=== PATIENT | female | born 1995 | race Caucasian/White ===

== ENCOUNTER 2017-10-18 15:55 | Emergency (ER) | payer OTHER, MEDICAID, SELFPAY ==
[2017-10-18 15:56] VITALS: BP 109/76; PULSE 116; RESP 16; TEMP 36.7; O2SAT 99; BMI 19.3
--- NOTE | 2017-10-18 16:07 | CT_ITS ---
CT Abdomen And Pelvis W/ Contrast INDICATION: RLQ PAIN, NAUSEA, HX-MOLAR WITH CHEMO COMPARISON: None TECHNIQUE: Axial CT imaging of the abdomen and pelvis with oral and intravenous contrast. Coronal and sagittal reformatted images. Radiation dose optimization technique applied. 100 mL of Isovue-300 were given intravenously. FINDINGS: The lung bases are clear. The heart size is normal. The liver, gallbladder, spleen, adrenal glands, and pancreas are unremarkable. The kidneys enhance contrast symmetrically bilaterally and are without evidence of hydronephrosis. Oral contrast material is seen in the stomach and nondistended small bowel loops. The appendix is unremarkable. Ovaries contain multiple follicles bilaterally.. The uterus is tilted towards the right. There is no evidence of free air or free fluid. The osseous structures are unremarkable. CT/Abdomen/Pelvis WITH Contrast IMPRESSION: No convincing CT evidence of acute intra-abdominal pelvic pathology. Normal appendix. at 1854 Reported and signed by: Mary Villareal MD Electronically Signed: Mary Villareal MD at 18:52 EDT Tel , Service support ,
--- NOTE | 2017-10-18 16:10 | ED.VISSUMM ---
- ER Visit Summary Date of Service: 10/18/17 Chief Complaint: Right lower quadrant abdominal pain History of Present Illness: The patient is a 22 F who presents with right lower quadrant abdominal pain since this morning. Pain is sharp, constant and woke her up from sleep. It hurts worse to move. Patient has associated nausea. No fever, diarrhea, urinary symptoms, vaginal bleeding or discharge. 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 Patient does have her uterus and ovaries still. No further medical history. Patient is a smoker. Last ate at [employer] prior to coming to the ED and says it made her nausea worse. Physical Examination: Vital signs: afebrile, hemodynamically stable, tachycardiac, no hypoxia on room air General: well nourished, well developed, in no distress appears uncomfortable, hand on right lower quadrant Skin: warm, dry, no rash, no pallor HEENT: normocephalic and atraumatic; PERRL, EOMI, moist mucous membranes Cardiovascular: Tachycardic rate and rhythm without murmurs, no peripheral edema, 2+ pulses all distal extremities Respiratory: No increased work of breathing, lungs are clear to auscultation bilaterally, no rales, rhonchi or wheezing Abdominal: Abdomen is soft, tender in the right lower quadrant with rebound tenderness, positive Rosvings sign, normoactive bowel sounds, no guarding, no masses MSK: Moves all extremities, no deformities, normal strength Neuro: Awake and alert, oriented ?4. No facial droop, sensation and motor function intact and symmetric Test Results: Abnormal Lab Results 10/18/17 10/18/17 10/18/17 16:20 16:20 16:20 WBC 9.3 RBC 4.79 Hgb 14.0 Hct 40.1 MCV 83.7 MCH 29.2 MCHC 34.9 RDW 12.1 RDW Differential 37.0 Plt Count 217 MPV 9.9 Immature Gran % (Auto) 0.000 Neut % (Auto) 68.9 Lymph % (Auto) 23.3 [place] % (Auto) 5.9 Eos % (Auto) 1.5 Baso % (Auto) 0.4 Absolute Neuts (auto) 6.4 Absolute Lymphs (auto) 2.16 Total Counted Not Reportable Sodium 140 Potassium 3.5 Chloride 106 Carbon Dioxide 28.0 Anion Gap 6 BUN 12 Creatinine 0.91 Estim Creat Clear Calc 87.28 Est GFR (MDRD) Af Amer 100 Est GFR (MDRD) Non-Af 83 BUN/Creatinine Ratio 13.1 Glucose 91 Lactic Acid 1.2 Calcium 8.5 Total Bilirubin 0.50 AST 18 ALT 19 Alkaline Phosphatase 92 Total Protein 8.0 Albumin 4.2 Globulin 3.8 Albumin/Globulin Ratio 1.1 Lipase 123 Urine Color Urine Clarity Urine pH Ur Specific [place] Urine Protein Urine Glucose (UA) Urine Ketones Urine Occult Blood Urine Nitrite Urine Bilirubin Urine Urobilinogen Ur Leukocyte Esterase Urine RBC Urine WBC Ur Squamous Epith Cells Urine Bacteria Urine Mucus Urine Test 10/18/17 10/18/17 16:20 16:20 WBC RBC Hgb Hct MCV MCH MCHC RDW RDW Differential Plt Count MPV Immature Gran % (Auto) Neut % (Auto) Lymph % (Auto) [place] % (Auto) Eos % (Auto) Baso % (Auto) Absolute Neuts (auto) Absolute Lymphs (auto) Total Counted Sodium Potassium Chloride Carbon Dioxide Anion Gap BUN Creatinine Estim Creat Clear Calc Est GFR (MDRD) Af Amer Est GFR (MDRD) Non-Af BUN/Creatinine Ratio Glucose Lactic Acid Calcium Total Bilirubin AST ALT Alkaline Phosphatase Total Protein Albumin Globulin Albumin/Globulin Ratio Lipase Urine Color Yellow Urine Clarity Clear Urine pH 8.0 Ur Specific [place] 1.010 Urine Protein 15 H Urine Glucose (UA) Normal Urine Ketones Negative Urine Occult Blood Negative Urine Nitrite Negative Urine Bilirubin Negative Urine Urobilinogen Normal Ur Leukocyte Esterase Negative Urine RBC 0 SEEN Urine WBC 0 SEEN Ur Squamous Epith Cells 5-10 SEEN Urine Bacteria 0 SEEN Urine Mucus 0 SEEN Urine Test Negative Clinical Impression(s) from Imaging Studies Abdomen/Pelvis CT 10/18/17 16:07 IMPRESSION: No convincing CT evidence of acute intra-abdominal pelvic pathology. Normal appendix. at 1854 Reported and signed by: Mary Villareal MD Electronically Signed: Mary Villareal MD at 18:52 EDT Tel , Service support , Emergency Department Course and Treatment: Patient was given morphine and Zofran for symptomatic relief as well as normal saline for hydration. Labs showed no leukocytosis, no anemia, no electrolyte derangements, no hepatic derangements, normal urine without infection, negative and a normal lactate of 1.2. Given patient's right lower quadrant abdominal pain a CT abdomen and pelvis was performed with p.o. and IV contrast. It showed a normal appendix and no other acute pathology. There were multiple follicles on bilateral ovaries but no signs of inflammation or large cysts. Discussed with patient that emergent causes of her right lower quadrant pain had been ruled out with the exception of ovarian torsion. Although there was no indication of it on her CT scan, ultrasound would be the imaging of choice. Patient refused the ultrasound and stated she would see her doctor this week. I told her that it would be a time sensitive issue if she was having pain because of torsion, and she still refused the ultrasound. I advised her to use NSAIDs as needed for pain and to f/u with her doctor zac. She was offered and declined a prescription for naproxen and also for an antiemetic. Patient was discharged home with strict return precautions. Patient was moving comfortably and had improvement in her pain at time of discharge. Treatment Plan: [] Disposition: [] Impression: Right lower quadrant abdominal pain This note was generated with [employer] dictation software. It may contain incorrect words, spelling, and punctuation that were not noted in review of the chart prior to signing ED Disposition - Plan for ED Patient: Disposition: Home or Assisted Living Chief Complaint: Abd Pain Instructions: ED Abdominal Pain Unkn Cause Referrals: Sami Oswald MD [Primary Care Provider] - As Needed Rhonda Hwoell MD [STAFF PHYSICIAN] - As soon as possible Additional Instructions: Please follow-up with your field care manager as soon as possible, Friday if at all possible, for follow-up to your lower abdominal pain. Your CT scan was normal. Your labs were normal. You are offered and declined an ultrasound to evaluate your ovaries and to make sure there was no evidence of ovarian torsion. Please return to the emergency department immediately if you have worsening of your condition or any new concerning symptoms. Use ibuprofen as needed for pain.
--- NOTE | 2017-10-18 16:13 | ED.DCSUM_ITS ---
- ER Visit Summary Date of Service: 10/18/17 Chief Complaint: Right lower quadrant abdominal pain History of Present Illness: The patient is a 22 F who presents with right lower quadrant abdominal pain since this morning. Pain is sharp, constant and woke her up from sleep. It hurts worse to move. Patient has associated nausea. No fever, diarrhea, urinary symptoms, vaginal bleeding or discharge. 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 Patient does have her uterus and ovaries still. No further medical history. Patient is a smoker. Last ate at [employer] prior to coming to the ED and says it made her nausea worse. Physical Examination: Vital signs: afebrile, hemodynamically stable, tachycardiac, no hypoxia on room air General: well nourished, well developed, in no distress appears uncomfortable, hand on right lower quadrant Skin: warm, dry, no rash, no pallor HEENT: normocephalic and atraumatic; PERRL, EOMI, moist mucous membranes Cardiovascular: Tachycardic rate and rhythm without murmurs, no peripheral edema , 2+ pulses all distal extremities Respiratory: No increased work of breathing, lungs are clear to auscultation bilaterally, no rales, rhonchi or wheezing Abdominal: Abdomen is soft, tender in the right lower quadrant with rebound tenderness, positive Rosvings sign, normoactive bowel sounds, no guarding, no masses MSK: Moves all extremities, no deformities, normal strength Neuro: Awake and alert, oriented ?4. No facial droop, sensation and motor function intact and symmetric Test Results: Abnormal Lab Results 10/18/17 10/18/17 10/18/17 16:20 16:20 16:20 WBC 9.3 RBC 4.79 Hgb 14.0 Hct 40.1 MCV 83.7 MCH 29.2 MCHC 34.9 RDW 12.1 RDW Differential 37.0 Plt Count 217 MPV 9.9 Immature Gran % (Auto) 0.000 Neut % (Auto) 68.9 Lymph % (Auto) 23.3 [place] % (Auto) 5.9 Eos % (Auto) 1.5 Baso % (Auto) 0.4 Absolute Neuts (auto) 6.4 Absolute Lymphs (auto) 2.16 Total Counted Not Reportable Sodium 140 Potassium 3.5 Chloride 106 Carbon Dioxide 28.0 Anion Gap 6 BUN 12 Creatinine 0.91 Estim Creat Clear Calc 87.28 Est GFR (MDRD) Af Amer 100 Est GFR (MDRD) Non-Af 83 BUN/Creatinine Ratio 13.1 Glucose 91 Lactic Acid 1.2 Calcium 8.5 Total Bilirubin 0.50 AST 18 ALT 19 Alkaline Phosphatase 92 Total Protein 8.0 Albumin 4.2 Globulin 3.8 Albumin/Globulin Ratio 1.1 Lipase 123 Urine Color Urine Clarity Urine pH Ur Specific [place] Urine Protein Urine Glucose (UA) Urine Ketones Urine Occult Blood Urine Nitrite Urine Bilirubin Urine Urobilinogen Ur Leukocyte Esterase Urine RBC Urine WBC Ur Squamous Epith Cells Urine Bacteria Urine Mucus Urine Test 10/18/17 10/18/17 16:20 16:20 WBC RBC Hgb Hct MCV MCH MCHC RDW RDW Differential Plt Count MPV Immature Gran % (Auto) Neut % (Auto) Lymph % (Auto) [place] % (Auto) Eos % (Auto) Baso % (Auto) Absolute Neuts (auto) Absolute Lymphs (auto) Total Counted Sodium Potassium Chloride Carbon Dioxide Anion Gap BUN Creatinine Estim Creat Clear Calc Est GFR (MDRD) Af Amer Est GFR (MDRD) Non-Af BUN/Creatinine Ratio Glucose Lactic Acid Calcium Total Bilirubin AST ALT Alkaline Phosphatase Total Protein Albumin Globulin Albumin/Globulin Ratio Lipase Urine Color Yellow Urine Clarity Clear Urine pH 8.0 Ur Specific [place] 1.010 Urine Protein 15 H Urine Glucose (UA) Normal Urine Ketones Negative Urine Occult Blood Negative Urine Nitrite Negative Urine Bilirubin Negative Urine Urobilinogen Normal Ur Leukocyte Esterase Negative Urine RBC 0 SEEN Urine WBC 0 SEEN Ur Squamous Epith Cells 5-10 SEEN Urine Bacteria 0 SEEN Urine Mucus 0 SEEN Urine Test Negative Clinical Impression(s) from Imaging Studies Abdomen/Pelvis CT 10/18/17 16:07 IMPRESSION: No convincing CT evidence of acute intra-abdominal pelvic pathology. Normal appendix. at 1854 Reported and signed by: Mary Villareal MD Electronically Signed: Mary Villareal MD at 18:52 EDT Tel , Service support , Emergency Department Course and Treatment: Patient was given morphine and Zofran for symptomatic relief as well as normal saline for hydration. Labs showed no leukocytosis, no anemia, no electrolyte derangements, no hepatic derangements, normal urine without infection, negative and a normal lactate of 1.2. Given patient's right lower quadrant abdominal pain a CT abdomen and pelvis was performed with p.o. and IV contrast. It showed a normal appendix and no other acute pathology. There were multiple follicles on bilateral ovaries but no signs of inflammation or large cysts. Discussed with patient that emergent causes of her right lower quadrant pain had been ruled out with the exception of ovarian torsion. Although there was no indication of it on her CT scan, ultrasound would be the imaging of choice. Patient refused the ultrasound and stated she would see her doctor this week. I told her that it would be a time sensitive issue if she was having pain because of torsion, and she still refused the ultrasound. I advised her to use NSAIDs as needed for pain and to f/u with her doctor zac. She was offered and declined a prescription for naproxen and also for an antiemetic. Patient was discharged home with strict return precautions. Patient was moving comfortably and had improvement in her pain at time of discharge. Treatment Plan: [] Disposition: [] Impression: Right lower quadrant abdominal pain This note was generated with [employer] dictation software. It may contain incorrect words, spelling, and punctuation that were not noted in review of the chart prior to signing ED Disposition - Plan for ED Patient: Disposition: Home or Assisted Living Chief Complaint: Abd Pain Instructions: ED Abdominal Pain Unkn Cause Referrals: Sami Oswald MD [Primary Care Provider] - As Needed Rhonda Howell MD [STAFF PHYSICIAN] - As soon as possible Additional Instructions: Please follow-up with your biology research assistant as soon as possible, Friday if at all possible, for follow-up to your lower abdominal pain. Your CT scan was normal. Your labs were normal. You are offered and declined an ultrasound to evaluate your ovaries and to make sure there was no evidence of ovarian torsion. Please return to the emergency department immediately if you have worsening of your condition or any new concerning symptoms. Use ibuprofen as needed for pain.
[2017-10-18] MEDS: Ondansetron 4 MG/2 ML Vial IV (16:29)
[2017-10-18] MEDS: 0.9% Normal Saline 1,000 ML 1000 ML IV (16:29)
[2017-10-18] MEDS: Morphine 4 MG/ML Syringe IV (16:29)
[2017-10-18 16:30] LABS: Bacteria 0 SEEN /hpf (None Seen); Mucous, Urine 0 SEEN /hpf (<or=2+); Red Blood Cells-Urine 0 SEEN /hpf (0-5); White Blood Cells 0 SEEN /hpf (0-5)
[2017-10-18 16:34] LABS: Color, Urine Yellow (Yellow); Glucose, Dipstick Normal (Normal); Ketone-Dipstick Negative (Negative); Leukocyte Esterase-Dipstick Negative /ul (Negative); Nitrite-Dipstick Negative (Negative); Occult Blood-Urine Negative /ul (Negative); Protein-Dipstick 15 mg/dl (Negative); Urine Bilirubin Dipstick Negative (Negative); Urine Clarity Clear (Clear); Urine Urobilinogen Normal (Normal)
[2017-10-18 16:38] LABS: Internal QC Validated? YES +Cl - CLEAR BKGD; Pregnancy, Urine Negative Negative
[2017-10-18 16:40] LABS: Squamous Epithelial Cells - UA 5-10 SEEN /hpf (5-10)
[2017-10-18 16:48] LABS: Absolute Lymphocyte Count 2.16 X10^3/ul (0.83-4.51); Absolute Neutrophil Count 6.4 X10^3/uL (2.0-7.7); Basophil# 0.04 X10^3/uL; Basophil% 0.4 % (0-1); Eosinophil# 0.14 X10^3/uL; Eosinophils% 1.5 % (0-5); Hematocrit 40.1 % (37-47); Lymphocyte # 2.16 X10^3/ul (4.0); Lymphocyte % 23.3 % (19-41); Mean Corp Hgb Conc 34.9 g/gl (32-36); Mean Corpuscular Hgb 29.2 pg (27.0-32.0); Mean Corpuscular Volume 83.7 fL (81-99); Mean Platelet Vol. 9.9 fl (6.2-12.0); Monocyte# 0.55 X10^3/uL; Monocyte% 5.9 % (0-10); Neutrophil # 6.38 X10^3/uL (2.7-7.7); Neutrophil % 68.9 % (47-70); Platelet Count 217 K/mm3 (150-450); RBC Distribution Width CV 12.1 % (11.6-14.6); Red Blood Count 4.79 M/mm3 (4.2-5.4); White Blood Count 9.3 K/mm3 (4.4-11.0)
[2017-10-18 16:49] LABS: POSITIVE COUNT NO; POSITIVE DIFFERENTIAL NO; POSITIVE MORPHOLOGY NO
[2017-10-18 16:51] LABS: ALB/GLOB Ratio 1.1 RATIO (0.9-2.4); AST(SGOT) 18 U/L (15-37); Alanine Aminotransfer ALT/SGPT 19 U/L (13-56); Albumin, Serum 4.2 g/dL (3.2-5.0); Alkaline Phosphatase 92 U/L (45-117); Anion Gap 6 (5-15); BUN 12 mg/dL (7-18); BUN/Creat Ratio 13.1 RATIO (10-20); Calcium,Total 8.5 mg/dL (8.5-10.1); Chloride 106 mmol/L (98-107); Creatinine, Serum 0.91 mg/dL (0.55-1.02); EST Glomerular Filtration Rate 83 mL/min (>60); Est Glom Filt Rate - Afr Amer 100 mL/min (>60); Estimated Creatinine Clearance 87.28 ml/min; Globulin 3.8 g/dL (2.2-4.2); Glucose 91 mg/dL (74-106); Lipase 123 U/L (73-393); Potassium 3.5 mmol/L (3.5-5.1); Sodium Level 140 mmol/L (136-145)
[2017-10-18 17:00] LABS: Lactic Acid 1.2 mmol/L (0.4-2.0)
[2017-10-18] MEDS: proMETHazine 25 MG/ML Syringe 12.5 MG IV (17:27)
[2017-10-18 18:33] VITALS: BP 103/70; PULSE 81; RESP 14; O2SAT 100
--- NOTE | 2017-10-18 19:16 | ED.DEP ---
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 Your CT scan was normal. Your labs were normal. You are offered and declined an ultrasound to evaluate your ovaries and to make sure there was no evidence of ovarian torsion. Please return to the emergency department immediately if you have worsening of your condition or any new concerning symptoms. Use ibuprofen as needed for pain.
[2017-10-18 19:32] VITALS: BP 116/88; PULSE 80; RESP 16; O2SAT 97
== END 2017-10-18 19:33 | disposition home or self-care (01) ==
PROVIDERS: Emergency Provider Emergency Medicine; Family Provider Family Medicine; PCP Family Medicine
DX: R10.31 Right lower quadrant pain (principal); R11.0 Nausea; Z72.0 Tobacco use
CPT/HCPCS: 74177; 80053; 81001; 81025; 83605; 83690; 85025; 87086; 87088; 96361; 96374; 96375; 99283; J7030; Q9967; A4216; J2405

== ENCOUNTER 2017-10-25 19:48 | Emergency (ER) | payer OTHER, MEDICAID, SELFPAY ==
[2017-10-25 19:49] VITALS: BP 115/73; PULSE 116; RESP 16; TEMP 37.2; O2SAT 100; BMI 18.2
[2017-10-25] MEDS: Acetaminophen 500 MG Tablet 1000 MG PO (20:28)
[2017-10-25] MEDS: Ketorolac 30 MG/ML Syringe IV (20:28)
[2017-10-25] MEDS: 0.9% Normal Saline 1,000 ML 999 ML IV (20:28)
--- NOTE | 2017-10-25 20:30 | RAD_ITS ---
STUDY: X-RAY CHEST REASON FOR EXAM: Female, 22 years old. cough, body aches and SOB x 2 days TECHNIQUE: Frontal and lateral views of the chest. COMPARISON: None. FINDINGS: The lungs are clear and expanded. There is no demonstrated pleural abnormality. Normal size heart. Normal mediastinum and naomi. Normal visualized pulmonary arteries. Normal visualized aortic arch and descending thoracic aorta. Normal visualized thoracic spine. Normal visualized ribs, clavicles, and shoulders. There is no demonstrated abnormality of the visualized soft tissue structures of the upper abdomen. RAD/Chest PA and Lateral IMPRESSION: Normal x-ray examination of the chest. Electronically Signed: Eliseo Haddad MD at 21:21 EDT , Service support ,
--- NOTE | 2017-10-25 21:25 | ED.VISSUMM ---
- ER Visit Summary Date of Service: 10/25/17 Chief Complaint: Cough History of Present Illness: The patient is a [address] Oswald. She reports she has a cough began 2 days ago. Is productive clear sputum. She has had subjective fever, chills, and sweats. She reports she has a mild sore throat. She complains of chest pain with coughing only. She reports that she is having moderate shortness of breath. She complains of diffuse myalgias and generalized weakness. States that she has a headache that stated 10 severity. She denies sick contacts. Reports that she had similar symptoms when she was diagnosed with influenza earlier this year. Physical Examination: Vitals: 8.9, 115/73, 116, 16, 100% on room air which is not hypoxic. General: Well-nourished and well-developed. Head: Normocephalic atraumatic. Neck: Supple, no lymphadenopathy. No JVD. Nontender. Cardiovascular: Tachycardic regular rhythm. No murmur. Respiratory: No respiratory distress. Clear to auscultation bilaterally. Frequent dry cough. Abdominal: Soft, nontender, nondistended, normal bowel sounds. No guarding, rebound, or peritoneal signs. Back: Nontender. Extremities: Nontender, no edema. Skin: Normal color, no rash. Neurologic: Alert and oriented ?3. Cranial nerves II through XII are intact. Normal strength and sensation. Psych: Normal affect. Test Results: Influenza is negative. Chest x-ray is normal. Emergency Department Course and Treatment: She had an IV placed. She is given a liter normal saline. She is given Toradol IV and Tylenol p.o. She is resting comfortably and feels improved. Treatment Plan: Discussed the patient there is the possibility that she has influenza and this is a false negative test. I do not think that Tamiflu is indicated at this point. She is instructed on symptomatic care. Push fluids. Alternate Tylenol and/or ibuprofen for fever and myalgias. Follow-up her primary care physician 1 week if not improving. Disposition: To home in improved and stable condition. Impression: 1. URI. This note was generated with [employer]ation software. It may contain incorrect words, spelling, and punctuation that were not noted in review of the chart prior to signing ED Disposition - Plan for ED Patient: Disposition: Home or Assisted Living Chief Complaint: General Illness Instructions: ED Upper Resp Infec No Abx Tx Referrals: Sami Oswald MD [Primary Care Provider] - 1 Week if not improving
[2017-10-25 21:49] VITALS: BP 92/48; PULSE 101; RESP 18
== END 2017-10-25 21:53 | disposition home or self-care (01) ==
PROVIDERS: Emergency Provider Emergency Medicine; Family Provider Family Medicine; PCP Family Medicine
DX: J06.9 Acute upper respiratory infection, unspecified (principal); F17.210 Nicotine dependence, cigarettes, uncomplicated
CPT/HCPCS: 71046; 87804; 96361; 96374; 99283; J7030; A4216

== ENCOUNTER → 2018-01-08 14:55 | Outpatient (CLI) | payer OTHER, MEDICAID, SELFPAY ==
[2018-01-09 02:42] LABS: Rapid Plasmin Reagin (RPR) NONREACTIVE (NONREACTIVE)
[2018-01-09 10:14] LABS: HIV - WCH Non-Reactive (Nonreactive)
[2018-01-14 03:08] LABS: HCV Quant. RNA PCR HCV Not Detected IU/mL (.)
[2018-01-14 11:17] LABS: HEPATITIS B SURFACE AG Negative (Negative); HSV 1 IgG < 0.91 index (0.00-0.90); HSV 2 IgG < 0.91 index (0.00-0.90)
== END ==
PROVIDERS: Visit Provider Nurse Practitioner Women's Health
DX: N89.8 Other specified noninflammatory disorders of vagina (principal); Z11.3 Encounter for screening for infections with a predominantly sexual mode of transmission
CPT/HCPCS: 36415; 86592; 86695; 86696; 86703; 87340; 87522

== ENCOUNTER → 2018-01-08 18:07 | Outpatient (CLI) | payer OTHER, MEDICAID, SELFPAY ==
[2018-01-08 21:29] LABS: Chlamydia Trachomatis by PCR Negative (Negative); Neisserai gonorrhoeae by PCR Negative (Negative); Probe Check PASS; Sample Adequacy Control PASS; Specimen Processing Control PASS
== END ==
PROVIDERS: Visit Provider Nurse Practitioner Women's Health
DX: N89.8 Other specified noninflammatory disorders of vagina (principal); Z11.3 Encounter for screening for infections with a predominantly sexual mode of transmission
CPT/HCPCS: 87070; 87205; 87491; 87591

== ENCOUNTER 2018-01-12 11:10 | Emergency (ER) | payer OTHER, MEDICAID, SELFPAY ==
[2018-01-12 11:10] VITALS: BP 100/67; PULSE 85; RESP 16; TEMP 36.6; O2SAT 98; BMI 18.2
--- NOTE | 2018-01-12 11:28 | RAD_ITS ---
STUDY: X-RAY - RIGHT FOOT CLINICAL: Female, 22 years old. 3 day history of lateral foot pain following a fall. TECHNIQUE: 3 view(s) of the foot. COMPARISON: None. FINDINGS: Normal talus, calcaneus, and tarsal bones. Normal visualized subtalar, talonavicular, calcaneocuboid, tarsal and tarsometatarsal articulations. Normal metatarsi. Normal metatarsophalangeal joint of the great toe. There is a bipartite tibial sesamoid. Normal interphalangeal joint of the great toe. Normal phalanges of the great toe. Normal second through fifth metatarsophalangeal joints. Normal interphalangeal joints and phalanges of the lesser toes. The soft tissue structures are unremarkable. RAD/Foot min 3 Views IMPRESSION: Normal x-ray examination of the foot. Electronically Signed: Tariq Bojorquez MD at 12:17 EDT Tel [phone], Service support ,
--- NOTE | 2018-01-12 11:28 | RAD_ITS ---
STUDY: X-RAY - RIGHT ANKLE REASON FOR EXAM: Female, 22 years old. Right lateral ankle pain following a recent fall. TECHNIQUE: 3 view(s) of the ankle. COMPARISON: None. FINDINGS: Normal visualized distal tibia and fibula. Normal medial and lateral malleoli. Normal tibiotalar articulation and ankle mortise. Normal visualized talus and calcaneus. The visualized subtalar, talonavicular, calcaneocuboid and tarsal articulations are normal. Lateral soft tissue swelling. RAD/Ankle min 3 Views IMPRESSION: Soft tissue swelling overlying the lateral malleolus. Electronically Signed: Tariq Bojorquez MD at 12:20 EDT Tel [phone], Service support ,
--- NOTE | 2018-01-12 11:35 | ED.DCSUM_ITS ---
- ER Visit Summary Date of Service: 01/12/18 Chief Complaint: Right ankle pain History of Present Illness: The patient is a 22 F presenting with right ankle pain. Patient states she fell down the steps she believes 2 days ago. She states she was not paying attention and fell. She did not hit her head or lose consciousness. She has been able to ambulate with pain since. She complains of persistent pain in the right foot and ankle. Denies other injury. Physical Examination: Vitals are stable. Patient is afebrile. Alert no acute distress. HEENT exam is unremarkable. Lungs are clear and equal bilaterally. Heart is regular rate and rhythm. Extremities right lateral ankle tenderness with swelling, painful range of motion, mild lateral foot tenderness, no proximal fibular tenderness, no Achilles tendon tenderness. Skin is warm and dry. No focal neurologic deficit. Remainder of exam is unremarkable. Emergency Department Course and Treatment: Ice pack was applied. X-ray right foot and ankle show soft tissue swelling, no fracture. Patient is advised to ice and elevate. She is given an Aircast and crutches. She is given a prescription for Naprosyn. Advised to follow-up with PCP. Advised to return to ED if worsening complaints. Disposition: Discharge home Impression: Right ankle sprain This note was generated with [employer] dictation software. It may contain incorrect words, spelling, and punctuation that were not noted in review of the chart prior to signing ED Disposition - Plan for ED Patient: Chief Complaint: Lower Extremity Injury Referrals: Sami Oswald MD [Primary Care Provider] -
--- NOTE | 2018-01-12 12:41 | ED.DEP ---
ED Disposition - Plan for ED Patient: Chief Complaint: Lower Extremity Injury Instructions: ED Sprain Ankle W X Ray Prescriptions: Naproxen [Naprosyn] 500 mg PO BID PRN #20 tablet Referrals: Sami Oswald MD [Primary Care Provider] -
[2018-01-12 12:50] VITALS: BP 108/69; PULSE 75; RESP 15; O2SAT 98
== END 2018-01-12 12:51 | disposition home or self-care (01) ==
LOC: ED 12:13
PROVIDERS: Emergency Provider Emergency Medicine; Family Provider Family Medicine; PCP Family Medicine
DX: S93.401A Sprain of unspecified ligament of right ankle, initial encounter (principal); W10.9XXA Fall (on) (from) unspecified stairs and steps, initial encounter; Y93.9 Activity, unspecified; Y92.89 Other specified places as the place of occurrence of the external cause; Y99.9 Unspecified external cause status; Z72.0 Tobacco use
CPT/HCPCS: 73610; 73630; 99283

== ENCOUNTER → 2018-09-22 14:29 | Outpatient (CLI) | payer OTHER, SELFPAY ==
[2018-09-22 14:15] VITALS: BMI 18.2
[2018-09-22 15:15] LABS: hCG Titer Quant., Serum < 1 mIU/mL (<9 non-preg)
[2018-09-22 15:58] LABS: HIV - WCH Non-Reactive (Nonreactive)
[2018-09-22 19:10] LABS: Chlamydia Trachomatis by PCR Negative (Negative); Neisserai gonorrhoeae by PCR Negative (Negative); Probe Check PASS; Sample Adequacy Control PASS; Specimen Processing Control PASS
[2018-09-25 01:30] LABS: Rapid Plasmin Reagin (RPR) NONREACTIVE (NONREACTIVE)
[2018-09-25 03:07] LABS: HCV Quant. RNA PCR HCV Not Detected IU/mL (.)
[2018-09-25 12:44] LABS: HEPATITIS B SURFACE AG Negative (Negative); HSV 1 IgG < 0.91 index (0.00-0.90); HSV 2 IgG < 0.91 index (0.00-0.90)
[2018-09-25 16:19] LABS: HPV Reflexed? NOT INDICATED
== END ==
PROVIDERS: Family Provider Family Medicine; PCP Family Medicine; Referring Provider Nurse Practitioner Women's Health; Visit Provider Nurse Practitioner Women's Health
DX: Z12.4 Encounter for screening for malignant neoplasm of cervix (principal); Z11.3 Encounter for screening for infections with a predominantly sexual mode of transmission; Z87.59 Personal history of other complications of pregnancy, childbirth and the puerperium
CPT/HCPCS: 36415; 84702; 86592; 86695; 86696; 86703; 87340; 87491; 87522; 87591; 87624; 88175; G0145

== ENCOUNTER → 2018-11-25 17:48 | Outpatient (CLI) | payer OTHER, SELFPAY ==
[2018-11-25 12:01] VITALS: BMI 18.9
== END ==
PROVIDERS: Family Provider Family Medicine; PCP Family Medicine; Referring Provider Nurse Practitioner Women's Health; Visit Provider Nurse Practitioner Women's Health
DX: N39.0 Urinary tract infection, site not specified (principal)
CPT/HCPCS: 87077; 87086; 87088; 87186

== ENCOUNTER 2018-11-28 00:10 | Emergency (ER) | payer OTHER, SELFPAY ==
[2018-11-25 12:01] VITALS: BMI 18.9
[2018-11-28 00:11] VITALS: BP 108/76; PULSE 86; RESP 15; TEMP 36.7; BMI 18.8
--- NOTE | 2018-11-28 00:35 | ED.VIS.GEN ---
History of Present Illness Chief Complaint: Female C/O Informant: Patient Onset: Days - 2 Context: Gradual Onset Timing: Continuous Quality: sore Location: perineum, where she shaved Current Severity: Mild Maximum Severity: Mild Worsened by: palpation Relieved by: nothing; has tried no medications Narrative: For several days patient has had anal pain. When she wipes there is blood but her bowel movements are nonbloody. She has a history of constipation and strains a lot, that was associated with the onset of this. She has tried no medications for that. Also, she shaved her perineum and pubic area the other day and noticed a couple of sore bumps afterwards, she thinks there were ingrown hairs so she remove the hairs within them with tweezers. She denies any drainage. No systemic symptoms. No abdominal pain, nausea, vomiting. Past Medical History - Allergies and Home Meds Allergies/Adverse Reactions: Allergies No Known Allergies Allergy (Verified 11/28/18 00:16) Primary Care Physician: Sami Oswald MD [Primary Care Provider] - Past Medical History: None Smoking Status: Current every day smoker Review of Systems General: Denies: Chills, Fever Gastrointestinal: Reports: Constipation, Hematochezia. Denies: Abdominal pain, Nausea, Vomiting, Melena Genitourinary: Denies: Dysuria, Hematuria, Frequency Skin: Reports: Rash, Wounds Physical Exam Vital Signs/Narrative: Vital Signs Temp Pulse Resp BP 11/28/18 00:11 98.1 F 86 15 108/76 Inital Vital Signs reviewed: Yes General: Well nourished, Well developed, No Acute Distress Head: Normocephalic, Atraumatic Abdomen: Soft, Nontender, Nondistended, Normal bowel sounds Rectal: Tenderness - At 9:00 area. Perianal area is normal-appearing, there is no abscess or fullness, there are no thrombosed hemorrhoids or visible external hemorrhoids. No erythema. : - - There are 4 or 5 small papular erythematous areas without induration or fluctuance, no significant tenderness, there is a central ulceration. Extremities: Nontender, No edema Skin: Normal color, No rash Diagnostic/Tx/Re-eval - Medical Decision Making I suspect she has external hemorrhoids below the dentate line but still within her anus. We will give her a prescription for Proctosol HC. Recommend topical Neosporin on the areas, there are within shaved hair, and likely were ingrown hairs. ED Disposition - Plan for ED Patient: Disposition: Home or Assisted Living Diagnosis: External hemorrhoids without complication, Skin irritation from shaving Instructions: Treating Hemorrhoids: Self-Care Prescriptions: Hydrocortisone/Pramoxine [Proctofoam-Hc Foam] 10 gm RC BID PRN #1 foam PRN Reason: Hemorrhoids Referrals: Sami Oswald MD [Primary Care Provider] - 1 Week if not improving Additional Instructions: Apply antibiotic ointment to affected areas in groin.
== END 2018-11-28 00:53 | disposition home or self-care (01) ==
LOC: ED 00:50
PROVIDERS: Emergency Provider Emergency Medicine; Family Provider Family Medicine; PCP Family Medicine
DX: K64.4 Residual hemorrhoidal skin tags (principal); F17.200 Nicotine dependence, unspecified, uncomplicated
CPT/HCPCS: 99282

== ENCOUNTER 2018-12-08 07:38 | Emergency (ER) | payer OTHER, MEDICAID, SELFPAY ==
[2018-12-08 07:39] VITALS: BP 98/56; PULSE 107; RESP 18; TEMP 36.4; O2SAT 99; BMI 18.8
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
--- NOTE | 2018-12-08 07:56 | NURSING ---
NO OLD EKGS
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
[2018-12-08 08:14] LABS: Bacteria 0 SEEN /hpf (None Seen); Red Blood Cells-Urine 0 SEEN /hpf (0-5); White Blood Cells 0 SEEN /hpf (0-5)
[2018-12-08 08:15] LABS: Color, Urine Yellow (Yellow); Glucose, Dipstick Normal (Normal); Ketone-Dipstick Negative (Negative); Leukocyte Esterase-Dipstick Negative /ul (Negative); Nitrite-Dipstick Negative (Negative); Occult Blood-Urine Negative /ul (Negative); Protein-Dipstick 15 mg/dl (Negative); Urine Bilirubin Dipstick Negative (Negative); Urine Clarity Clear (Clear); Urine Urobilinogen Normal (Normal); Urine pH 6.5 (5.0 - 8.0)
[2018-12-08 08:17] LABS: Absolute Lymphocyte Count 1.42 X10^3/ul (0.83-4.51); Absolute Neutrophil Count 9.4 X10^3/uL (2.0-7.7); Basophil# 0.02 X10^3/uL; Basophil% 0.2 % (0-1); Hematocrit 35.1 % (37-47); Hemoglobin 12.5 g/dl (12.0-15.0); Lymphocyte # 1.42 X10^3/ul (4.0); Lymphocyte % 12.4 % (19-41); Mean Corp Hgb Conc 35.6 g/gl (32-36); Mean Corpuscular Volume 84.2 fL (81-99); Mean Platelet Vol. 10.1 fl (6.2-12.0); Monocyte% 5.2 % (0-10); Neutrophil # 9.38 X10^3/uL (2.7-7.7); Platelet Count 196 K/mm3 (150-450); RBC Distribution Width CV 12.2 % (11.6-14.6); RBC Distribution Width SD 37.3 fl (35.1-43.9); Red Blood Count 4.17 M/mm3 (4.2-5.4); White Blood Count 11.4 K/mm3 (4.4-11.0)
[2018-12-08 08:18] LABS: Differential Indicated SCAN CRITERIA MET; POSITIVE COUNT NO; POSITIVE DIFFERENTIAL NO; POSITIVE MORPHOLOGY YES
[2018-12-08 08:22] LABS: Mucous, Urine RARE /hpf (<or=2+); Squamous Epithelial Cells - UA 0-5 SEEN /hpf (5-10)
[2018-12-08 08:28] LABS: Anion Gap 11 (5-15); BUN 6 mg/dL (7-18); BUN/Creat Ratio 7.7 RATIO (10-20); Calcium,Total 8.7 mg/dL (8.5-10.1); Chloride 108 mmol/L (98-107); Creatinine, Serum 0.78 mg/dL (0.55-1.02); EST Glomerular Filtration Rate 99 mL/min (>60); Est Glom Filt Rate - Afr Amer 120 mL/min (>60); Estimated Creatinine Clearance 98.04 ml/min; Glucose 96 mg/dL (74-106); Potassium 3.4 mmol/L (3.5-5.1); Sodium Level 143 mmol/L (136-145)
[2018-12-08 08:37] LABS: Internal QC Validated? YES +Cl - CLEAR BKGD; Pregnancy, Serum, hCG Quali. NEGATIVE Negative
[2018-12-08] MEDS: Morphine 4 MG/ML Syringe IV (08:52)
[2018-12-08] MEDS: Ondansetron 4 MG/2 ML Vial IV (08:52)
[2018-12-08 09:45] VITALS: PULSE 99; RESP 20; O2SAT 97
== END 2018-12-08 10:29 | disposition home or self-care (01) ==
PROVIDERS: Emergency Provider Emergency Medicine; Family Provider Family Medicine; PCP Family Medicine
DX: S06.0X1A Concussion with loss of consciousness of 30 minutes or less, initial encounter (principal); S20.219A Contusion of unspecified front wall of thorax, initial encounter; S20.222A Contusion of left back wall of thorax, initial encounter; S30.1XXA Contusion of abdominal wall, initial encounter; S70.12XA Contusion of left thigh, initial encounter; Y04.2XXA Assault by strike against or bumped into by another person, initial encounter; Y93.9 Activity, unspecified; Y92.9 Unspecified place or not applicable; Y99.9 Unspecified external cause status; F17.200 Nicotine dependence, unspecified, uncomplicated
CPT/HCPCS: 70110; 70450; 71046; 74177; 80048; 81001; 84703; 85025; 93005; 99284; Q9967; A4216; J2405

== ENCOUNTER → 2019-04-20 09:18 | Outpatient (CLI) | payer OTHER, MEDICAID, SELFPAY ==
[2019-04-20 09:07] VITALS: BMI 18.8
[2019-04-20 11:47] LABS: HIV - WCH Non-Reactive (Nonreactive)
[2019-04-22 16:08] LABS: HCV Quant. RNA PCR HCV Not Detected IU/mL (.)
[2019-04-22 17:12] LABS: HSV 1 IgG 1.37 index (0.00-0.90); HSV 2 IgG 6.28 index (0.00-0.90)
[2019-04-23 02:37] LABS: Rapid Plasmin Reagin (RPR) NONREACTIVE (NONREACTIVE)
== END ==
PROVIDERS: Family Provider Family Medicine; PCP Family Medicine; Referring Provider Nurse Practitioner Women's Health; Visit Provider Nurse Practitioner Women's Health
DX: Z11.3 Encounter for screening for infections with a predominantly sexual mode of transmission (principal)
CPT/HCPCS: 36415; 86592; 86695; 86696; 86703; 87522

== ENCOUNTER → 2019-04-20 12:25 | Outpatient (CLI) | payer OTHER, MEDICAID, SELFPAY ==
[2019-04-20 09:07] VITALS: BMI 18.8
[2019-04-20 16:15] LABS: Chlamydia Trachomatis by PCR Negative (Negative); Neisserai gonorrhoeae by PCR Negative (Negative); Probe Check PASS; Sample Adequacy Control PASS; Specimen Processing Control PASS
== END ==
PROVIDERS: Family Provider Family Medicine; PCP Family Medicine; Referring Provider Nurse Practitioner Women's Health; Visit Provider Nurse Practitioner Women's Health
DX: Z11.3 Encounter for screening for infections with a predominantly sexual mode of transmission (principal); R30.0 Dysuria
CPT/HCPCS: 87086; 87088; 87186; 87491; 87591

== ENCOUNTER → 2019-10-08 12:44 | Outpatient (CLI) | payer MEDICAID, SELFPAY ==
[2019-10-08 10:05] VITALS: BMI 18.8
== END ==
PROVIDERS: PCP Family Medicine; Referring Provider Nurse Practitioner Women's Health; Visit Provider Nurse Practitioner Women's Health
DX: O23.40 Unspecified infection of urinary tract in pregnancy, unspecified trimester (principal); Z3A.00 Weeks of gestation of pregnancy not specified
CPT/HCPCS: 87086; 87088; 87186

== ENCOUNTER 2020-04-02 13:30 | Emergency (ER) | payer MEDICAID, SELFPAY ==
[2019-10-08 10:05] VITALS: BMI 18.8
[2020-04-02 13:32] VITALS: BP 136/71; PULSE 98; RESP 16; TEMP 36.8; O2SAT 98
--- NOTE | 2020-04-02 13:47 | RAD_ITS ---
STUDY: X-RAY CHEST REASON FOR EXAM: Female, 24 years old. cough, sore throat, body aches TECHNIQUE: AP COMPARISON: 12/08/2018 FINDINGS: The lungs are clear and expanded. There is no demonstrated pleural abnormality. Normal size heart. Normal mediastinum and naomi. Normal visualized pulmonary arteries. Normal visualized aortic arch and descending thoracic aorta. There is a dextroscoliosis of the thoracic spine. Normal visualized ribs, clavicles, and shoulders. There is no demonstrated abnormality of the visualized soft tissue structures of the upper abdomen. RAD/Chest 1 View (Portable) IMPRESSION: Stable, nonacute portable x-ray examination of the chest. Electronically Signed: Ger Hitchcock MD ([place]) at 14:21 EDT , Service support ,
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
[2020-04-02 13:56] VITALS: BP 136/71; PULSE 98; RESP 16; TEMP 36.8; O2SAT 98
[2020-04-02] MEDS: Naproxen 500 MG Tablet PO (14:04)
[2020-04-02 15:33] VITALS: RESP 14
== END 2020-04-02 15:33 | disposition home or self-care (01) ==
PROVIDERS: Emergency Provider Emergency Medicine; PCP Family Medicine
DX: J06.9 Acute upper respiratory infection, unspecified (principal); F17.200 Nicotine dependence, unspecified, uncomplicated; Z20.828 Contact with and (suspected) exposure to other viral communicable diseases
CPT/HCPCS: 71045; 87635; 99282; U0003

== ENCOUNTER 2020-05-21 11:24 | Emergency (ER) | payer MEDICAID, SELFPAY ==
[2020-05-21] VITALS (15 sets, daily range): BP systolic 84–134; BP diastolic 57–109; PULSE 67–124; RESP 13–24; TEMP 36.8–37; O2SAT 96–100; BMI 17.7
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
[2020-05-21] MEDS: Ziprasidone IM 20 MG/ML VIAL IM (12:18)
[2020-05-21 12:20] LABS: Absolute Lymphocyte Count 1.45 X10^3/uL (0.83-4.51); Absolute Neutrophil Count 7.2 X10^3/uL (2.0-7.7); Basophil# 0.06 X10^3/uL; Basophil% 0.6 % (0-1); Eosinophil# 0.26 X10^3/uL; Eosinophils% 2.7 % (0-5); Hematocrit 40.8 % (37-47); Lymphocyte # 1.45 X10^3/ul (4.0); Lymphocyte % 15.3 % (19-41); Mean Corp Hgb Conc 34.3 g/dL (32-36); Mean Corpuscular Volume 90.3 fL (81-99); Mean Platelet Vol. 11.1 fl (6.2-12.0); Monocyte# 0.47 X10^3/uL; NRBC Flagged by Analyzer 0 % (0-5); Neutrophil # 7.17 X10^3/uL (2.7-7.7); Neutrophil % 75.9 % (47-70); Platelet Count 215 K/mm3 (150-450); RBC Distribution Width CV 11.8 % (11.6-14.6); RBC Distribution Width SD 38.9 fl (35.1-43.9); Red Blood Count 4.52 M/mm3 (4.2-5.4); White Blood Count 9.5 K/mm3 (4.4-11.0)
[2020-05-21 12:32] LABS: Anion Gap 8 (5-15); BUN 10 mg/dL (7-18); BUN/Creat Ratio 10.5 RATIO (10-20); Calcium,Total 8.8 mg/dL (8.5-10.1); Chloride 107 mmol/L (98-107); Creatinine, Serum 0.95 mg/dL (0.55-1.02); EST Glomerular Filtration Rate 77 mL/min (>60); Est Glom Filt Rate - Afr Amer 93 mL/min (>60); Estimated Creatinine Clearance 70.37 ml/min; Glucose 108 mg/dL (74-106); Potassium 3.3 mmol/L (3.5-5.1); Sodium Level 140 mmol/L (136-145)
[2020-05-21 12:34] LABS: Internal QC Validated? YES +Cl - CLEAR BKGD; Pregnancy, Serum, hCG Quali. NEGATIVE Negative
[2020-05-21 12:38] LABS: Amphetamine Urine VISTA NEGATIVE (<1000 ng/mL); Barbiturate Urine VISTA NEGATIVE (< 200 ng/mL); Benzodiazepine Urine VISTA POSITIVE (< 200 ng/mL); Cocaine Urine VISTA POSITIVE (< 300 ng/mL); Ecstacy Urine VISTA NEGATIVE (< 500 ng/mL); Methadone Urine VISTA NEGATIVE (< 300 ng/mL); PCP Urine VISTA NEGATIVE (< 25 ng/mL); THC Urine VISTA POSITIVE (< 50 ng/mL); Vista UDS pH Range 6
[2020-05-21 12:52] LABS: Alcohol, Blood (Medical)-Serum < 3.0 mg/dL
[2020-05-21 14:15] LABS: Probe Check PASS; Specimen Processing Control PASS
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
--- NOTE | 2020-05-21 19:55 | ED.RN ---
PT SLEEPING ON STOMACH AROUSABLE TO VOICE, BP LOW AT 84/[address] GRIFFIN MADE AWARE NO NEW ORDERS AT THIS TIME. WILL CONTINUE TO MONITOR THE PT. SITTER AT BEDSIDE.
--- NOTE | 2020-05-21 22:43 | ED.RN ---
this nurse spoke with annie mcdowell who requested the pt to know that annie called and to give a phone number to be reached at if the pt wished to reach out [phone].
== END 2020-05-21 23:08 ==
PROVIDERS: Emergency Provider Emergency Medicine; PCP Family Medicine
DX: R45.851 Suicidal ideations (principal); F32.9 Major depressive disorder, single episode, unspecified; Z72.0 Tobacco use; Z85.42 Personal history of malignant neoplasm of other parts of uterus
CPT/HCPCS: 80048; 80307; 80320; 84703; 85025; 87635; 96372; 99285; A4216; G0480; J3486; U0002

== ENCOUNTER 2020-10-27 17:40 | Emergency (ER) | payer MEDICAID, SELFPAY ==
[2020-05-21 11:25] VITALS: BMI 17.7
[2020-10-27 17:43] VITALS: BP 112/70; PULSE 103; RESP 16; TEMP 36.6; O2SAT 100; BMI 18.5
--- NOTE | 2020-10-27 18:37 | EX.ED.DYSGE1 ---
HPI History of Present Illness Chief Complaint: Abd Pain Informant: patient Narrative Narrative: 25-year-old female presents to the emergency department after being referred here by her [employer]. She tells me that she has had been exposed to Covid and was not feeling well had some right lower quadrant pain so she went to [facility] yesterday. She states that there she informed him that she had had a positive test on Friday. She states that they could not really provide her with much information and when she called her [employer] today they were unable to get her ultrasound results. I used clinic sink and found that her quantitative hCG there was 10,385. I was also able to review her pelvic ultrasound results which was read as suspected gestational sac and yolk sac but no pole visualized. Both ovaries had flow. Her white count was normal. [facility] Medical History (Updated 10/27/20 @ 19:[address] Fritz Hawk DO) History of molar uterus chemotherapy Home Medications 21-iron fu-folic acid [ Complete] 1 tab PO DAILY 10/27/20 [History Last Taken Unknown] Allergy/AdvReac Type Severity Reaction Status Date / Time No Known Allergies Allergy Verified 10/27/20 17:41 Surgical History History of delivery Social History Smoking Status: Current every day smoker alcohol intake: never substance use type: does not use what type of physical activity do you participate in: walking seatbelt use: always do you feel safe at home: Yes ROS ROS ED Constitutional Constitutional ED: Denies chills or weight loss Eyes Eyes: Denies change in vision or diplopia ENT ENT ED: Denies ear pain, rhinorrhea or sore throat Cardiovascular Cardiovascular: Denies chest pain, orthopnea, palpitations or racing heartbeat Respiratory/Chest Respiratory/Chest: Denies cough, dyspnea or orthopnea Gastrointestinal Gastrointestinal: Reports abdominal pain; Denies diarrhea, nausea or vomiting Genitourinary Genitourinary ED: Denies dysuria, hematuria or urinary frequency Musculoskeletal Musculoskeletal: Denies arthralgias or myalgias Integumentary Denies abscess or rash Neurologic Neurologic: Denies headache(s) or weakness Psychiatric Psychiatric: Denies anxiety, depression, suicidal ideation or suicidal thoughts Endocrine Endocrinology: Denies polydipsia, polyphagia or polyuria Allergic/Immunologic Allergic/Immunologic ED: Denies mouth swelling, tongue swelling or urticaria EXAM Physical Exam Const Vital Signs: 10/27/20 17:43 Temperature 98 F Temperature Source Temporal Pulse Rate 103 H Respiratory Rate 16 Blood Pressure 112/70 Blood Pressure Mean 84 Pulse Ox 100 Oxygen Delivery Method Room Air Positive well nourished and well developed General Appearance ED: well developed HEENT Reports normocephalic, head/scalp atraumatic and moist mucous membranes Eyes PERRL and EOMs intact bilaterally Neck no lymphadenopathy, supple and no JVD Resp normal respiratory effort and clear to auscultation bilaterally Cardio regular rate, regular rhythm and no murmurs GI normal to inspection, nondistended, normoactive bowel sounds and non-tender Palpation: soft Back/Spine no CVA tenderness and normal ROM Extremity normal to inspection General Extremety ED: Negative for edema General Extremity: Negative for edema Neuro oriented x3 and CN's II-XII intact bilaterally Sensorium / Orientation: alert Motor Exam: strength 5/5 throughout Psych mental status grossly normal Mood & Affect: Negative for depressed or tearful Skin no rashes or lesions noted and no wounds MDM MDM MDM Narrative Medical decision making narrative: Patient's white count is normal today at 5.1. Hemoglobin normal. Her hCG level is 11,000 149. 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 Howell. We will obtain a repeat ultrasound in about 1 week. She is to call the office on Friday and make arrangements. Lab Data Attestation: I reviewed the patient's lab results. Labs: Laboratory Results - last 24 hr 10/27/20 10/27/20 17:50 17:50 WBC 5.1 RBC 4.49 Hgb 13.6 Hct 39.5 MCV 88.0 MCH 30.3 MCHC 34.4 RDW Std Deviation 35.9 RDW Coeff of Elsy 11.2 L Plt Count 219 MPV 10.7 Immature Gran % (Auto) 0.200 Neut % (Auto) 60.3 Lymph % (Auto) 32.3 [place] % (Auto) 4.5 Eos % (Auto) 2.3 Baso % (Auto) 0.4 Absolute Neuts (auto) 3.1 Absolute Lymphs (auto) 1.66 Nucleated RBC % 0 HCG, Quant 20170 H Discharge Plan Triage Chief Complaint: Abd Pain ED Provider: Fritz Hawk Dx/Rx/DC Orders Clinical Impression: Abdominal pain, First trimester Instructions: ED Abdominal Pain, Early Prescriptions: No Action Complete 14 mg iron- 400 mcg Tablet 1 tab PO DAILY RF: 0 Primary Care Provider: Sami Oswald Referrals: Sami Oswald MD [Primary Care Provider] - Rhonda Howell MD [STAFF PHYSICIAN] - As soon as possible (Call the office on Friday to make arrangements for a repeat ultrasound in 1 week.) Disposition Disposition: Home, self care
[2020-10-27 19:03] LABS: Absolute Lymphocyte Count 1.66 X10^3/uL (0.83-4.51); Absolute Neutrophil Count 3.1 X10^3/uL (2.0-7.7); Basophil# 0.02 X10^3/uL; Basophil% 0.4 % (0-1); Eosinophil# 0.12 X10^3/uL; Eosinophils% 2.3 % (0-5); Hematocrit 39.5 % (37-47); Hemoglobin 13.6 g/dL (12.0-15.0); Lymphocyte # 1.66 X10^3/ul (0.83-4.51); Lymphocyte % 32.3 % (19-41); Mean Corp Hgb Conc 34.4 g/dL (32-36); Mean Corpuscular Hgb 30.3 pg (27.0-32.0); Mean Platelet Vol. 10.7 fl (6.2-12.0); Monocyte# 0.23 X10^3/uL; Monocyte% 4.5 % (0-10); NRBC Flagged by Analyzer 0 % (0-5); Neutrophil % 60.3 % (47-70); Platelet Count 219 K/mm3 (150-450); RBC Distribution Width CV 11.2 % (11.6-14.6); RBC Distribution Width SD 35.9 fl (35.1-43.9); Red Blood Count 4.49 M/mm3 (4.2-5.4); White Blood Count 5.1 K/mm3 (4.4-11.0)
[2020-10-27 19:48] LABS: hCG Titer Quant., Serum 11149 mIU/mL (1-3)
[2020-10-27 20:34] LABS: Amphetamine Urine VISTA NEGATIVE (<1000 ng/mL); Barbiturate Urine VISTA NEGATIVE (< 200 ng/mL); Benzodiazepine Urine VISTA NEGATIVE (< 200 ng/mL); Cocaine Urine VISTA NEGATIVE (< 300 ng/mL); Ecstacy Urine VISTA NEGATIVE (< 500 ng/mL); Methadone Urine VISTA NEGATIVE (< 300 ng/mL); PCP Urine VISTA NEGATIVE (< 25 ng/mL); THC Urine VISTA POSITIVE (< 50 ng/mL); Vista UDS pH Range 6
== END 2020-10-27 20:20 | disposition home or self-care (01) ==
LOC: ED 18:48
PROVIDERS: Emergency Provider Emergency Medicine; PCP Family Medicine
DX: O26.891 Other specified pregnancy related conditions, first trimester (principal); R10.9 Unspecified abdominal pain; Z3A.00 Weeks of gestation of pregnancy not specified; O99.330 Smoking (tobacco) complicating pregnancy, unspecified trimester; F17.200 Nicotine dependence, unspecified, uncomplicated
CPT/HCPCS: 80307; 84702; 85025; 99282

== ENCOUNTER → 2020-11-03 14:56 | Outpatient (CLI) | payer MEDICAID, SELFPAY ==
[2020-10-27 17:43] VITALS: BMI 18.5
--- NOTE | 2020-11-03 14:58 | US_ITS ---
STUDY: FIRST TRIMESTER OBSTETRICAL ULTRASOUND REASON FOR EXAM: Female, 25 years old viability LMP: 09/19/2020 TECHNIQUE: Transvaginal TECHNICAL QUALITY: Adequate. PRIOR ULTRASOUND: None. FINDINGS: There is visualization of a single gestational sac in a normal intrauterine position. The mean sac diameter (MSD) measures 20 mm, indicating an estimated gestational age (EGA) of 7 weeks, 1 days. The gestational sac shape is within normal limits. There is a visualized yolk sac. The yolk sac measures 4 mm. The placenta is non-visualized. There is visualization of a live embryo. The crown-rump length (CRL) measures 3 mm, indicating an estimated gestational age (EGA) of 5 weeks, 6 days. There is demonstrated cardiac activity with a heart rate of 102 bpm. The estimated gestation age (EGA) by LMP is 6 weeks, 3 days. The estimated date of delivery (SANDHYA) by LMP is 06/26/2021. The estimated gestation age (EGA) by US is 6 weeks, 4 days. The estimated date of delivery (SANDHYA) by US is 06/25/2021. The uterus measures 9.7 x 4.2 x 5.2. There is no demonstrated uterine fibroid. The cervix is closed. The right ovary measures 3.3 x 1.5 x 2.0 cm. There is no right ovarian cyst. There is no visualized right adnexal mass or complex lesion. The left ovary measures 4.6 x 2.5 x 3.4 cm. There is no left ovarian cyst. There is no visualized left adnexal mass or complex lesion. There is no fluid in the cul de sac. US/Transvaginal w/Preg US IMPRESSION: Living intrauterine of 6 weeks 4 days as described above. Electronically Signed: Oz Toussaint MD at 12:43 EDT Tel , Service support ,
== END ==
PROVIDERS: PCP Family Medicine; Visit Provider Obstetrics & Gynecology
DX: O20.0 Threatened abortion (principal); Z3A.00 Weeks of gestation of pregnancy not specified
CPT/HCPCS: 76817

== ENCOUNTER → 2020-11-16 16:27 | Outpatient (CLI) | payer MEDICAID, SELFPAY ==
[2020-11-16 14:09] VITALS: BMI 18.9
[2020-11-16 17:57] LABS: Amphetamine Urine VISTA NEGATIVE (<1000 ng/mL); Barbiturate Urine VISTA NEGATIVE (< 200 ng/mL); Benzodiazepine Urine VISTA NEGATIVE (< 200 ng/mL); Cocaine Urine VISTA NEGATIVE (< 300 ng/mL); Ecstacy Urine VISTA NEGATIVE (< 500 ng/mL); Methadone Urine VISTA NEGATIVE (< 300 ng/mL); PCP Urine VISTA NEGATIVE (< 25 ng/mL); THC Urine VISTA POSITIVE (< 50 ng/mL); Vista UDS pH Range 7
[2020-11-20 04:07] LABS: Chlamydia By Nucleic Acid AMP Negative (Negative)
[2020-11-20 07:38] LABS: Gonococcus By Nucleic Acid AMP Negative (Negative)
== END ==
PROVIDERS: PCP Family Medicine; Visit Provider Obstetrics & Gynecology
DX: Z34.90 Encounter for supervision of normal pregnancy, unspecified, unspecified trimester (principal)
CPT/HCPCS: 80307; 87086; 87491; 87591

== ENCOUNTER → 2020-12-11 14:00 | Outpatient (CLI) | payer MEDICAID, SELFPAY ==
[2020-12-11 13:42] VITALS: BMI 18.9
[2020-12-11 14:41] LABS: Absolute Lymphocyte Count 1.35 X10^3/uL (0.83-4.51); Basophil# 0.03 X10^3/uL; Basophil% 0.4 % (0-1); Eosinophil# 0.15 X10^3/uL; Eosinophils% 2.1 % (0-5); Hematocrit 33.9 % (37-47); Hemoglobin 11.8 g/dL (12.0-15.0); Lymphocyte # 1.35 X10^3/ul (0.83-4.51); Lymphocyte % 19.3 % (19-41); Mean Corp Hgb Conc 34.8 g/dL (32-36); Mean Corpuscular Hgb 30.6 pg (27.0-32.0); Mean Corpuscular Volume 87.8 fL (81-99); Mean Platelet Vol. 10.3 fl (6.2-12.0); Monocyte# 0.44 X10^3/uL; Monocyte% 6.3 % (0-10); NRBC Flagged by Analyzer 0 % (0-5); Neutrophil # 5.01 X10^3/uL (2.7-7.7); Neutrophil % 71.5 % (47-70); Platelet Count 188 K/mm3 (150-450); RBC Distribution Width CV 11.7 % (11.6-14.6); RBC Distribution Width SD 37.1 fl (35.1-43.9); Red Blood Count 3.86 M/mm3 (4.2-5.4)
[2020-12-11 15:10] LABS: NATERA MAILED SPECIMEN
[2020-12-11 15:42] LABS: HIV - WCH Non-Reactive (Nonreactive); Hepatitis B Surface Antigen Non-Reactive (Nonreactive); Hepatitis C Antibody Non-Reactive (Nonreactive); Rubella IgG Non-Reactive (Nonreactive); Syphilis Antibodies Non-reactive
[2020-12-14 03:06] LABS: Chlamydia By Nucleic Acid AMP Negative (Negative)
[2020-12-14 14:11] LABS: Gonococcus By Nucleic Acid AMP Negative (Negative)
== END ==
PROVIDERS: PCP Family Medicine; Referring Provider Obstetrics & Gynecology; Visit Provider Obstetrics & Gynecology
DX: Z11.3 Encounter for screening for infections with a predominantly sexual mode of transmission (principal); Z34.81 Encounter for supervision of other normal pregnancy, first trimester; Z31.430 Encounter of female for testing for genetic disease carrier status for procreative management
CPT/HCPCS: 36415; 85025; 86703; 86762; 86780; 86803; 86850; 86900; 86901; 87340; 87491; 87591

== ENCOUNTER → 2021-04-12 13:43 | Outpatient (CLI) | payer MEDICAID, SELFPAY ==
[2021-04-12 14:13] LABS: Absolute Lymphocyte Count 1.21 X10^3/uL (0.83-4.51); Absolute Neutrophil Count 6.7 X10^3/uL (2.0-7.7); Basophil# 0.03 X10^3/uL; Basophil% 0.3 % (0-1); Eosinophil# 0.12 X10^3/uL; Eosinophils% 1.4 % (0-5); Hematocrit 31.8 % (37-47); Lymphocyte # 1.21 X10^3/ul (0.83-4.51); Mean Corp Hgb Conc 34.6 g/dL (32-36); Mean Corpuscular Hgb 30.7 pg (27.0-32.0); Mean Corpuscular Volume 88.8 fL (81-99); Mean Platelet Vol. 10.1 fl (6.2-12.0); Monocyte# 0.47 X10^3/uL; Monocyte% 5.4 % (0-10); NRBC Flagged by Analyzer 0 % (0-5); Neutrophil # 6.72 X10^3/uL (2.7-7.7); Neutrophil % 77.9 % (47-70); Platelet Count 207 K/mm3 (150-450); RBC Distribution Width SD 39.2 fl (35.1-43.9); Red Blood Count 3.58 M/mm3 (4.2-5.4); White Blood Count 8.6 K/mm3 (4.4-11.0)
[2021-04-12 14:24] LABS: Glucose Challenge Gest 1H 50g 108 mg/dL (70-140)
== END ==
PROVIDERS: PCP Family Medicine; Referring Provider Obstetrics & Gynecology; Visit Provider Obstetrics & Gynecology
DX: O26.899 Other specified pregnancy related conditions, unspecified trimester (principal); Z67.91 Unspecified blood type, Rh negative; Z13.1 Encounter for screening for diabetes mellitus; Z3A.23 23 weeks gestation of pregnancy
CPT/HCPCS: 36415; 82950; 85025; 86850; 86900; 86901

== ENCOUNTER → 2021-04-12 17:29 | Outpatient (CLI) | payer MEDICAID, SELFPAY ==
[2021-04-12 18:15] LABS: Amphetamine Urine VISTA NEGATIVE (<1000 ng/mL); Barbiturate Urine VISTA NEGATIVE (< 200 ng/mL); Benzodiazepine Urine VISTA NEGATIVE (< 200 ng/mL); Cocaine Urine VISTA NEGATIVE (< 300 ng/mL); Ecstacy Urine VISTA NEGATIVE (< 500 ng/mL); Methadone Urine VISTA NEGATIVE (< 300 ng/mL); PCP Urine VISTA NEGATIVE (< 25 ng/mL); THC Urine VISTA POSITIVE (< 50 ng/mL); Vista UDS pH Range 7
== END ==
PROVIDERS: PCP Family Medicine; Referring Provider Obstetrics & Gynecology; Visit Provider Obstetrics & Gynecology
DX: F12.10 Cannabis abuse, uncomplicated (principal); O26.899 Other specified pregnancy related conditions, unspecified trimester; Z67.91 Unspecified blood type, Rh negative; Z13.1 Encounter for screening for diabetes mellitus; Z3A.23 23 weeks gestation of pregnancy
CPT/HCPCS: 36415; 80307; 82950; 85025; 86850; 86900; 86901

== ENCOUNTER → 2021-05-03 12:05 | Outpatient (CLI) | payer MEDICAID, SELFPAY ==
--- NOTE | 2021-05-03 12:09 | US_ITS ---
STUDY: SECOND AND THIRD TRIMESTER OBSTETRICAL ULTRASOUND - LIMITED REASON FOR EXAM: Female, 26 years old history of covid LMP: 09/19/2020. PRIOR ULTRASOUND: Comparison is made with prior examination 11/03/2020. TECHNIQUE: Transabdominal and Transvaginal TECHNICAL QUALITY: Adequate. FINDINGS: There is a single intrauterine fetus. The fetus is in a cephalic presentation. There is demonstrated cardiac activity with a heart rate of 140 bpm. There is a normal amniotic fluid volume. The largest amniotic fluid pocket measures 4.2 cm. The amniotic fluid index (CHRISTINA) is 13.8 cm. The placenta is posterior in location and is not low lying. There are Grade 2 placental changes. The cervix measures 3.7 cm in length. BIOMETRY: BPD: 7.6 cm: 30 weeks, 4 days HC: 29.2 cm: 32 weeks, 1 days AC: 27.2 cm: 31 weeks, 1 days FL: 6.2 cm: 32 weeks, 0 days Age by LMP: 32 weeks, 2 days. SANDHYA by LMP: 06/26/2021. age by prior US: 32 weeks, 3 days. SANDHYA by prior US: 06/25/2021. age by current US: 31 weeks, 3 days. SANDHYA by current US: 07/02/2021. Estimated weight: 1776 grams, +/- 266 grams, 19 percentile. US/OB Limited With Biometrics IMPRESSION: Single live intrauterine gestation with a mean gestational age of 32 weeks and 3 days. The measurements obtained today fall within the normal expected range. Electronically Signed: Tariq Bojorquez MD at 15:41 EDT , Service support ,
[2021-05-06 13:06] LABS: Chlamydia By Nucleic Acid AMP Negative (Negative)
[2021-05-07 17:46] LABS: Gonococcus By Nucleic Acid AMP Negative (Negative)
== END ==
PROVIDERS: Obstetrics & Gynecology; PCP Family Medicine; Referring Provider Obstetrics & Gynecology; Visit Provider Obstetrics & Gynecology
DX: Z34.82 Encounter for supervision of other normal pregnancy, second trimester (principal); Z3A.32 32 weeks gestation of pregnancy; Z86.16 Personal history of COVID-19
CPT/HCPCS: 76816; 87070; 87205; 87491; 87591

== ENCOUNTER → 2021-05-31 16:42 | Outpatient (CLI) | payer MEDICAID, SELFPAY | PROVIDERS: PCP Family Medicine; Visit Provider Obstetrics & Gynecology | DX: Z34.82 Encounter for supervision of other normal pregnancy, second trimester (principal) | CPT/HCPCS: 87081 ==

== ENCOUNTER → 2021-06-04 12:25 | Outpatient (CLI) | payer MEDICAID, SELFPAY ==
[2021-06-04 12:47] LABS: ROM Internal Control Test YES-OK TO RESULT pt. (Internal QC); ROM Patient Test Negative (Negative)
--- NOTE | 2021-06-04 14:28 | US_ITS ---
STUDY: SECOND AND THIRD TRIMESTER OBSTETRICAL ULTRASOUND - LIMITED REASON FOR EXAM: Female, 26 years old growth LMP: 09/19/2020 PRIOR ULTRASOUND: Comparison is made with prior examination 05/03/2021. TECHNIQUE: Transabdominal TECHNICAL QUALITY: Adequate. FINDINGS: There is a single intrauterine fetus. The fetus is in a cephalic presentation. There is demonstrated cardiac activity with a heart rate of 153 bpm. There is a normal amniotic fluid volume. The largest amniotic fluid pocket measures 7.87 cm. The amniotic fluid index (CHRISTINA) is 26.6 cm. The placenta is fundal in location. There are Grade 3 placental changes. BIOMETRY: BPD: 8.41 cm: 33 weeks, 6 days HC: 32.26 cm: 36 weeks, 3 days AC: 32.68 cm: 36 weeks, 4 days FL: 6.76 cm: 34 weeks, 5 days Age by LMP: 36 weeks, 6 days. SANDHYA by LMP: 06/26/2021. age by prior US: 36 weeks, 0 days. SANDHYA by prior US: 07/02/2021. age by current US: 36 weeks, 1 days. SANDHYA by current US: 07/21/2021. Estimated weight: 2758 grams, +/- 414 grams, 27 percentile. US/OB Limited With Biometrics IMPRESSION: Single live intrauterine gestation with a mean gestational age of 36 weeks and 0 days. The measurements obtained today fall within the normal expected range. Electronically Signed: Tariq Bojorquez MD at 15:54 EST , Service support ,
== END ==
PROVIDERS: Obstetrics & Gynecology; PCP Family Medicine; Referring Provider Obstetrics & Gynecology; Visit Provider Obstetrics & Gynecology
DX: N89.8 Other specified noninflammatory disorders of vagina (principal); O98.511 Other viral diseases complicating pregnancy, first trimester; U07.1 COVID-19; Z3A.00 Weeks of gestation of pregnancy not specified
CPT/HCPCS: 76816; 84112

== ENCOUNTER 2021-06-06 07:55 | Outpatient (CLI) | payer MEDICAID, SELFPAY ==
[2021-06-06 08:02] VITALS: BP 125/83; PULSE 91
[2021-06-06 08:04] VITALS: TEMP 36.7; O2SAT 98
[2021-06-06 08:09] VITALS: BMI 24.7
[2021-06-06] MEDS: cycloBENZAPRine HCl 10 MG Tablet PO (08:55)
[2021-06-06 08:58] LABS: Color, Urine Yellow (Yellow); Glucose, Dipstick Normal (Normal); Ketone-Dipstick Negative (Negative); Leukocyte Esterase-Dipstick 25 /ul (Negative); Nitrite-Dipstick Negative (Negative); Occult Blood-Urine Negative /ul (Negative); Protein-Dipstick Negative (Negative); Specific Gravity, Urine 1.015 (1.002-1.030); Urine Bilirubin Dipstick Negative (Negative); Urine Clarity Clear (Clear); Urine Urobilinogen Normal (Normal)
[2021-06-06 09:08] LABS: Amphetamine Urine VISTA NEGATIVE (<1000 ng/mL); Barbiturate Urine VISTA NEGATIVE (< 200 ng/mL); Benzodiazepine Urine VISTA NEGATIVE (< 200 ng/mL); Cocaine Urine VISTA NEGATIVE (< 300 ng/mL); Ecstacy Urine VISTA NEGATIVE (< 500 ng/mL); Methadone Urine VISTA NEGATIVE (< 300 ng/mL); PCP Urine VISTA NEGATIVE (< 25 ng/mL); THC Urine VISTA POSITIVE (< 50 ng/mL); Vista UDS pH Range 7
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
== END 2021-06-06 11:05 | disposition home or self-care (01) ==
LOC: WPOUT 07:56 → WP 07:56
PROVIDERS: PCP Family Medicine; Referring Provider Obstetrics & Gynecology; Visit Provider Obstetrics & Gynecology
DX: O40.3XX0 Polyhydramnios, third trimester, not applicable or unspecified (principal); O99.323 Drug use complicating pregnancy, third trimester; F12.10 Cannabis abuse, uncomplicated; O09.293 Supervision of pregnancy with other poor reproductive or obstetric history, third trimester; Z3A.37 37 weeks gestation of pregnancy; Z87.59 Personal history of other complications of pregnancy, childbirth and the puerperium; Z87.891 Personal history of nicotine dependence
CPT/HCPCS: 59025; 59050; 80307; 81002; 87426; 99218; G0378

== ENCOUNTER 2021-06-11 09:32 | Outpatient (CLI) | payer MEDICAID, SELFPAY ==
[2021-06-11 09:41] VITALS: BP 117/81; PULSE 91
[2021-06-11 09:43] VITALS: TEMP 36.7
[2021-06-11 09:50] VITALS: BMI 24.7
[2021-06-11 09:56] VITALS: TEMP 36.7
[2021-06-11] MEDS: Acetaminophen 500 MG Tablet 1000 MG PO (10:38)
--- NOTE | 2021-06-11 13:18 | OB.TRI.PN ---
Progress Notes Date of Service: 06/11/21 Progress Note: Patient presents for triage evaluation secondary to contractions FHT: 140 Moderate variability reactive no decelerations category I tracing [place]: uirregular Contractions Assessment and plan: false labor no cevical change Reactive NST, reassuring maternal and status patient discharged to home to follow-up as scheduled. See problem list details for additional plan information. Charges/Coding Procedures Urinary/Genital 52xxx-59xxx: 07679-05 non-stress test Interp
== END 2021-06-11 11:10 | disposition home or self-care (01) ==
LOC: WPOUT 09:36 → WP 09:36
PROVIDERS: PCP Family Medicine; Referring Provider Obstetrics & Gynecology; Visit Provider Obstetrics & Gynecology
DX: O47.9 False labor, unspecified (principal); Z3A.00 Weeks of gestation of pregnancy not specified
CPT/HCPCS: 59025; 59050; 99218; G0378

== ENCOUNTER 2021-06-17 18:40 | Outpatient (CLI) | payer MEDICAID, SELFPAY ==
[2021-06-17 18:48] VITALS: BP 108/64; PULSE 96
[2021-06-17 18:50] VITALS: BMI 25.0
[2021-06-17] MEDS: Morphine 4 MG/ML Syringe 6 MG IM (19:55)
--- NOTE | 2021-06-18 11:50 | OB.TRI.PN_ITS ---
Progress Notes Date of Service: 06/17/21 Progress Note: Patient presents for triage evaluation secondary to contractions and pain FHT: 140 Moderate variability reactive no decelerations category I tracing [place]: irregular Contractions Assessment and plan: no cervical change, pain medicine given. Reactive NST, magdalena ssuring maternal and status patient discharged to home to follow-up as scheduled. See problem list details for additional plan information. Charges/Coding Procedures Urinary/Genital 52xxx-59xxx: 30129-38 non-stress test Interp Assessment & Plan (1) False labor:
== END 2021-06-17 21:19 | disposition home or self-care (01) ==
LOC: WPOUT 18:42 → WP 18:42
PROVIDERS: PCP Family Medicine; Visit Provider Obstetrics & Gynecology
DX: O47.9 False labor, unspecified (principal); Z3A.00 Weeks of gestation of pregnancy not specified
CPT/HCPCS: 59025; 59050; 96372; 99218; G0378

== ENCOUNTER 2021-06-21 22:26 | Emergency (ER) | payer MEDICAID, SELFPAY ==
[2021-06-21 22:27] VITALS: BP 132/90; PULSE 75; RESP 16; TEMP 36.6; O2SAT 97; BMI 25.8
--- NOTE | 2021-06-21 22:48 | EDS_ITS ---
HPI History of Present Illness Chief Complaint: Other, Pain/Inj Informant: patient Narrative Narrative: 26-year-old female presents the emergency room chief complaint of itchy palms and . Patient states that she is 39 weeks was recently diagnosed with COVID-19 and is on day before. She has developed itchy palms and soles. She states that she spoke with her CATTERY OPERATOR and they told her to come to emergency to get her liver checked. Patient notes her urine seems darker than normal. She denies any yellowing of the skin or eyes or tongue. She is feeling her baby move appropriately. This is her first . [facility] Medical History History of molar Marijuana abuse Rh negative status during uterus chemotherapy Home Medications 21-iron fu-folic acid [ Complete] 1 tab PO DAILY 10/27/20 [History Last Taken 06/17/21 10:00 1 tab] famotidine [Pepcid] 20 mg PO QHS 06/06/21 [History Last Taken 06/17/21 10:00 20 mg] valacyclovir 500 mg PO QDAY 06/06/21 [History Last Taken 06/17/21 10:00 500 mg] hydroxyzine pamoate [Vistaril] 25 mg PO TID PRN #30 cap 06/21/21 [Rx Last Taken Unknown] Allergy/AdvReac Type Severity Reaction Status Date / Time No Known Allergies Allergy Verified 06/21/21 10:06 Surgical History H/O dilation and curettage Social History adopted: No household members: significant other current occupational status: unemployed Smoking Status: Former smoker alcohol intake: never substance use type: does not use what type of physical activity do you participate in: walking seatbelt use: always do you feel safe at home: Yes ROS ROS ED Constitutional Constitutional ED: Reports fever(s); Denies chills or weight loss Eyes Eyes: Denies change in vision or diplopia ENT ENT ED: Reports rhinorrhea; Denies ear pain or sore throat Cardiovascular Cardiovascular: Denies chest pain, orthopnea, palpitations or racing heartbeat Respiratory/Chest Respiratory/Chest: Reports cough; Denies dyspnea or orthopnea Gastrointestinal Gastrointestinal: Denies abdominal pain, diarrhea, nausea or vomiting Genitourinary Genitourinary ED: Denies dysuria, hematuria or urinary frequency Musculoskeletal Musculoskeletal: Denies arthralgias or myalgias Integumentary Reports other Details: Itchy palms and soles ; Denies abscess or rash Neurologic Neurologic: Denies headache(s) or weakness Psychiatric Psychiatric: Denies anxiety, depression, suicidal ideation or suicidal thoughts Endocrine Endocrinology: Denies polydipsia, polyphagia or polyuria Allergic/Immunologic Allergic/Immunologic ED: Denies mouth swelling, tongue swelling or urticaria EXAM Physical Exam Const Vital Signs: 06/21/21 22:27 Temperature 97.8 F Temperature Source Temporal Pulse Rate 75 Respiratory Rate 16 Blood Pressure 132/90 H Blood Pressure Mean 104 Pulse Ox 97 Oxygen Delivery Method Room Air Positive well nourished and well developed General Appearance ED: well developed HEENT Reports normocephalic, head/scalp atraumatic, TM's clear and moist mucous membranes Negative for trauma Tympanic Membrane ED: Yes TM's clear Eyes PERRL and EOMs intact bilaterally Neck no lymphadenopathy, supple and no JVD Resp normal respiratory effort and clear to auscultation bilaterally Cardio regular rate, regular rhythm and no murmurs GI normal to inspection, nondistended, normoactive bowel sounds and non-tender GI Narrative: Gravid uterus Palpation: soft Back/Spine no CVA tenderness and normal ROM Extremity normal to inspection General Extremety ED: Negative for edema General Extremity: Negative for edema Neuro oriented x3 and CN's II-XII intact bilaterally Sensorium / Orientation: alert Motor Exam: strength 5/5 throughout Psych mental status grossly normal Mood & Affect: Negative for depressed or tearful Skin no rashes or lesions noted and no wounds MDM MDM MDM Narrative Medical decision making narrative: Labs were obtained and reviewed. Normal bilirubin. AST and ALT are normal. Alk phos of 166. Urinalysis does not show any bilirubin. I spoke with on-call dust collector treater Dr. Thompson. Patient be discharged home with hydroxyzine. Return if worsening or concerns Lab Data Attestation: I reviewed the patient's lab results. Labs: Laboratory Results - last 24 hr 12/23/21 12/23/21 12/23/21 22:45 22:45 23:17 WBC 8.0 RBC 3.48 L Hgb 10.9 L Hct 31.1 L MCV 89.4 MCH 31.3 MCHC 35.0 RDW Std Deviation 40.5 RDW Coeff of Elsy 12.5 Plt Count 197 MPV 11.2 Immature Gran % (Auto) 1.800 H Neut % (Auto) 73.7 H Lymph % (Auto) 15.8 L [place] % (Auto) 6.5 Eos % (Auto) 1.8 Baso % (Auto) 0.4 Absolute Neuts (auto) 5.9 Absolute Lymphs (auto) 1.26 Nucleated RBC % 0 Sodium 141 Potassium 3.5 Chloride 110 H Carbon Dioxide 23.0 Anion Gap 8 BUN 7 Creatinine 0.65 Estim Creat Clear Calc 129.78 Est GFR (MDRD) Af Amer 144 Est GFR (MDRD) Non-Af 119 BUN/Creatinine Ratio 10.8 Glucose 99 Calcium 8.1 L Total Bilirubin 0.40 Direct Bilirubin 0.22 AST 35 ALT 37 Alkaline Phosphatase 166 H Total Protein 6.4 Albumin 2.1 L Globulin 4.3 H Urine Color Yellow Urine Clarity Sl. Cloudy Urine pH 8.0 Ur Specific [place] 1.010 Urine Protein Negative Urine Glucose (UA) Normal Urine Ketones Negative Urine Occult Blood Negative Urine Nitrite Negative Urine Bilirubin Negative Urine Urobilinogen Normal Ur Leukocyte Esterase 100 H Urine RBC 0 SEEN Urine WBC 0-5 SEEN Ur Squamous Epith Cells 0-5 SEEN Urine Bacteria 2+ Urine Mucus 0 SEEN Discharge Plan Triage Chief Complaint: Other, Pain/Inj ED Provider: Fritz Hawk Dx/Rx/DC Orders Clinical Impression: COVID-19 affecting in first trimester, Itching Prescriptions: New hydroxyzine pamoate [Vistaril] 25 mg capsule 25 mg PO TID PRN (Reason: itching) Qty: 30 RF: 0 No Action Complete 14 mg iron- 400 mcg Tablet 1 tab PO DAILY RF: 0 valacyclovir 500 mg tablet 500 mg PO QDAY RF: 0 famotidine [Pepcid] 20 mg tablet 20 mg PO QHS RF: 0 Primary Care Provider: Sami Oswald Referrals: Emily Velez DO [STAFF PHYSICIAN] - Keep Robert appointment Sami Oswald MD [Primary Care Provider] - Disposition Disposition: Home, Self Care
[2021-06-21 23:09] LABS: AST(SGOT) 35 U/L (15-37); Alanine Aminotransfer ALT/SGPT 37 U/L (13-56); Albumin, Serum 2.1 g/dL (3.2-5.0); Alkaline Phosphatase 166 U/L (45-117); Anion Gap 8 (5-15); BUN 7 mg/dL (7-18); BUN/Creat Ratio 10.8 RATIO (10-20); Bilirubin, Direct 0.22 mg/dL (0.00-0.30); Calcium,Total 8.1 mg/dL (8.5-10.1); Chloride 110 mmol/L (98-107); Creatinine, Serum 0.65 mg/dL (0.55-1.02); EST Glomerular Filtration Rate 119 mL/min (>60); Est Glom Filt Rate - Afr Amer 144 mL/min (>60); Estimated Creatinine Clearance 129.78 ml/min; Globulin 4.3 g/dL (2.2-4.2); Glucose 99 mg/dL (74-106); Potassium 3.5 mmol/L (3.5-5.1); Protein, Total 6.4 g/dL (6.4-8.2); Sodium Level 141 mmol/L (136-145)
[2021-06-21 23:27] LABS: Mucous, Urine 0 SEEN /hpf (<or=2+); Red Blood Cells-Urine 0 SEEN /hpf (0-5)
[2021-06-21 23:33] LABS: Color, Urine Yellow (Yellow); Glucose, Dipstick Normal (Normal); Ketone-Dipstick Negative (Negative); Leukocyte Esterase-Dipstick 100 /ul (Negative); Nitrite-Dipstick Negative (Negative); Occult Blood-Urine Negative /ul (Negative); Protein-Dipstick Negative (Negative); Urine Bilirubin Dipstick Negative (Negative); Urine Clarity Sl. Cloudy (Clear); Urine Urobilinogen Normal (Normal)
[2021-06-21 23:34] LABS: Absolute Lymphocyte Count 1.26 X10^3/uL (0.83-4.51); Absolute Neutrophil Count 5.9 X10^3/uL (2.0-7.7); Basophil# 0.03 X10^3/uL; Basophil% 0.4 % (0-1); Eosinophil# 0.14 X10^3/uL; Eosinophils% 1.8 % (0-5); Hematocrit 31.1 % (37-47); Hemoglobin 10.9 g/dL (12.0-15.0); Lymphocyte # 1.26 X10^3/ul (0.83-4.51); Lymphocyte % 15.8 % (19-41); Mean Corpuscular Hgb 31.3 pg (27.0-32.0); Mean Corpuscular Volume 89.4 fL (81-99); Mean Platelet Vol. 11.2 fl (6.2-12.0); Monocyte# 0.52 X10^3/uL; Monocyte% 6.5 % (0-10); NRBC Flagged by Analyzer 0 % (0-5); Neutrophil % 73.7 % (47-70); Platelet Count 197 K/mm3 (150-450); RBC Distribution Width CV 12.5 % (11.6-14.6); RBC Distribution Width SD 40.5 fl (35.1-43.9); Red Blood Count 3.48 M/mm3 (4.2-5.4)
[2021-06-21 23:50] LABS: Bacteria 2+ /hpf (None Seen); Squamous Epithelial Cells - UA 0-5 SEEN /hpf (5-10); White Blood Cells 0-5 SEEN /hpf (0-5)
[2021-06-22 00:01] VITALS: BP 128/74; PULSE 61; RESP 16; O2SAT 98
== END 2021-06-22 00:04 | disposition home or self-care (01) ==
PROVIDERS: Emergency Provider Emergency Medicine; PCP Family Medicine
DX: O98.513 Other viral diseases complicating pregnancy, third trimester (principal); U07.1 COVID-19; O99.323 Drug use complicating pregnancy, third trimester; F12.10 Cannabis abuse, uncomplicated; Z87.891 Personal history of nicotine dependence; Z3A.39 39 weeks gestation of pregnancy
CPT/HCPCS: 80048; 80076; 81001; 85025; 99283; A4216

== ENCOUNTER 2021-06-24 12:20 | Inpatient (IN) | payer MEDICAID, SELFPAY ==
[2021-06-24] VITALS (51 sets, daily range): BP systolic 107–140; BP diastolic 57–101; PULSE 74–104; TEMP 36.2–36.7; O2SAT 88–100; BMI 25.2
[2021-06-24 12:19] LABS: ROM Internal Control Test YES-OK TO RESULT pt. (Internal QC); ROM Patient Test POSITIVE (Negative)
[2021-06-24] MEDS: Lactated Ringers 1,000 ML 200 ML IV ×2 (13:15→19:46)
[2021-06-24 13:41] LABS: Absolute Lymphocyte Count 1.32 X10^3/uL (0.83-4.51); Absolute Neutrophil Count 10.6 X10^3/uL (2.0-7.7); Basophil# 0.05 X10^3/uL; Basophil% 0.4 % (0-1); Eosinophils% 0.8 % (0-5); Hematocrit 33.6 % (37-47); Hemoglobin 11.7 g/dL (12.0-15.0); Lymphocyte # 1.32 X10^3/ul (0.83-4.51); Lymphocyte % 10.5 % (19-41); Mean Corp Hgb Conc 34.8 g/dL (32-36); Mean Corpuscular Hgb 30.7 pg (27.0-32.0); Mean Corpuscular Volume 88.2 fL (81-99); Mean Platelet Vol. 10.6 fl (6.2-12.0); Monocyte# 0.49 X10^3/uL; Monocyte% 3.9 % (0-10); NRBC Flagged by Analyzer 0 % (0-5); Neutrophil # 10.55 X10^3/uL (2.7-7.7); Neutrophil % 83.4 % (47-70); Platelet Count 214 K/mm3 (150-450); RBC Distribution Width CV 12.3 % (11.6-14.6); RBC Distribution Width SD 39.3 fl (35.1-43.9); Red Blood Count 3.81 M/mm3 (4.2-5.4); White Blood Count 12.6 K/mm3 (4.4-11.0)
[2021-06-24 13:46] LABS: Protein, Urine (Random) 17.3 mg/dL (<11.9); Protein:Creat Ratio 271 mg/g CRE (0-200)
[2021-06-24 13:52] LABS: AST(SGOT) 22 U/L (15-37); Alanine Aminotransfer ALT/SGPT 29 U/L (13-56); Creatinine, Serum 0.61 mg/dL (0.55-1.02); EST Glomerular Filtration Rate 128 mL/min (>60); Est Glom Filt Rate - Afr Amer 155 mL/min (>60); Estimated Creatinine Clearance 138.29 ml/min; Uric Acid 4.1 mg/dL (2.6-6.0)
[2021-06-24 13:57] LABS: Amphetamine Urine VISTA NEGATIVE (<1000 ng/mL); Barbiturate Urine VISTA NEGATIVE (< 200 ng/mL); Benzodiazepine Urine VISTA NEGATIVE (< 200 ng/mL); Cocaine Urine VISTA NEGATIVE (< 300 ng/mL); Ecstacy Urine VISTA NEGATIVE (< 500 ng/mL); Methadone Urine VISTA NEGATIVE (< 300 ng/mL); PCP Urine VISTA NEGATIVE (< 25 ng/mL); THC Urine VISTA NEGATIVE (< 50 ng/mL); Vista UDS pH Range 7
--- NOTE | 2021-06-24 13:58 | NURSING ---
had elevated fluid level at 32 weeks and at 36 weeks fluid check was normal. pt had covid at begining of and is positive now, had growth ultrasounds done for monitoring.
[2021-06-24] MEDS: Oxytocin 30 units/NS 500 ml 30 UNITS/500 ML IV.SOLN IV (15:00)
[2021-06-24] MEDS: Lactated Ringers 500 ML 999 ML IV ×2 (17:25→18:30)
[2021-06-24] MEDS: fentaNYL-bupivacaine (epidural) 100 ML BAG EPIDURAL ×2 (18:00→22:17)
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
[2021-06-25] VITALS (86 sets, daily range): BP systolic 107–137; BP diastolic 61–90; PULSE 81–104; RESP 13–18; TEMP 36.1–37.3; O2SAT 83–100
[2021-06-25] MEDS: Lactated Ringers 1,000 ML 200 ML IV (01:16)
[2021-06-25] MEDS: fentaNYL-bupivacaine (epidural) 100 ML BAG EPIDURAL (03:01)
[2021-06-25] MEDS: Lactated Ringers 500 ML 999 ML IV (04:01)
--- NOTE | 2021-06-25 04:58 | PCM.PN.BLA ---
Progress Note nursing called at 0430 with report of late decelerations and minimal cervical belt changer the last 24 hrs. She is tearful but comfortable. current tracing:category 2/3 for minimal to moderate at times variability, no 15 x 15 accels, persistent late decels [place]: tachycystole contractions that resolved, now q 2-3 min Contractions reviewed tracing abnormalities since last note: last note FHT was cat 1/2 for only occasional early decels and occasional mimimal variability A/P: 39 weeks, covid + and intolerance to labor stop pit now plan for section now
--- NOTE | 2021-06-25 05:19 | PCM.DC ---
Discharge Instructions Diet Discharge Diet: No restrictions Activity Discharge Activity: May Not Drive (for 2 weeks or while taking narcotic pain medications.), May Shower and May Take a Tub Bath (in 7 days.) May resume sexual activity in: 4-6 weeks Weight Bearing Status: Full weight bearing Lifting Restrictions: 20 pounds Dressing / Incision Call your doctor if your incision/area has: Continuous Slow Oozing, Sudden Increased Bleeding, Increased Pain/ Swelling, Increased Redness and Foul Smelling Discharge Call your doctor if you observe: Fever of 101 or Higher and Using more than 1 pad per hour Suture Line Care: Avoid Pulling/Pushing and Avoid Pinching/Bending Cleanse incision/area with: Soap & Water and Keep Dressing Clean & Dry Follow Up Care Please Follow Up With: Emily Velez DO When: Call [phone] to make an appointment for an incision check in 1-2 weeks. Test Results: Test results from this visit will be discussed in further detail at your follow-up appointment, if applicable. Discharge Plan Admission Admit Date/Time: 06/24/21 12:20 Primary Reason for Your Visit: section Attending Provider: Emily Velez Primary Care Provider: Sami Oswald Discharge Orders/Prescriptions Prescriptions: New ibuprofen 800 mg tablet 800 mg PO Q8H PRN (Reason: pain) 7 Days Qty: 30 RF: 0 docusate sodium [Colace] 100 mg capsule 100 mg PO DAILY 14 Days Qty: 14 RF: 0 oxycodone-acetaminophen [Percocet] 5-325 mg tablet 1 tab PO Q4H PRN (Reason: pain) 7 Days Qty: 28 RF: 0 ibuprofen 800 mg tablet 800 mg PO Q8H PRN (Reason: pain) 7 Days Qty: 30 RF: 0 Continued Complete 14 mg iron- 400 mcg Tablet 1 tab PO DAILY RF: 0 valacyclovir 500 mg tablet 500 mg PO QDAY RF: 0 famotidine [Pepcid] 20 mg tablet 20 mg PO QHS RF: 0 hydroxyzine pamoate [Vistaril] 25 mg capsule 25 mg PO TID PRN (Reason: itching) Qty: 30 RF: 0 Referrals / Follow Up: Sami Oswald MD [Primary Care Provider] - Disposition Disposition (needs filled in before D/C Order can be placed): Home, Self Care
[2021-06-25] MEDS: Sodium Citrate/Citric Acid 30 ML UDC PO (05:20)
[2021-06-25] MEDS: Methylergonovine 0.2 MG/ML Ampul IM (05:52)
--- NOTE | 2021-06-25 06:15 | EX.PCM.OBRPT ---
Assessment & Plan (1) delivery w/o mention of indication, deliv, curr hospitaliz: (2) Supervision of normal : QUALIFIERS: Normal : other normal Trimester: second trimester Qualified Code(s): Z34.82 - Encounter for supervision of other normal , second trimester COMMENT: PRR SANDHYA 06/26/21 syed Campuzano (3) : QUALIFIERS: Weeks of gestation: 39 weeks Qualified Code(s): Z3A.39 - 39 weeks gestation of COMMENT: declined ntd screen. low risk NIPT, neg. , nl anatomy; NEG GBS (4) H/O molar , antepartum: COMMENT: 3 D&C and then chemo, check serum HCG 6 weeks PP (5) Anxiety: COMMENT: no meds, counseling encouraged (6) COVID-19 affecting in first trimester: COMMENT: + covid 09/2020: start ASA; growth US q 4 weeks in third trimester (7) Genital herpes: COMMENT: plan suppressive therapy 36 wks (8) COVID-19 affecting , antepartum: COMMENT: + 06/18/21 (9) Rh negative status during : COMMENT: PRN and at 28 wks (10) Marijuana abuse: COMMENT: + test 11/16, 04/12, random tox screening Maternal Data Information SANDHYA Calculator Estimated Delivery Date Method Current WG Current Estimate 06/26/21 LMP (Certain) 39w 6d Details Operative Information Date of Procedure: 06/25/21 Pre-Operative Diagnosis: 39 weeks 6 days, failure to progress, PROM, intolerance to labor, active COVID - 19 infection in Post-Operative Diagnosis: 39 weeks 6 days, failure to progress, PROM, intolerance to labor, active COVID - 19 infection in Indications for : Failure to Progress, Arrrest of Descent and Nonreassuring Status Classification: SHERI Procedure Type: low transverse county director #1: Letty Keller Type of Anesthesia: Epidural Antibiotic Given: Ancef 2 grams IV x1 and Zithromax 500 mg/5 mL X1 Estimated Blood Loss: 700cc Findings Description of Procedure: The patient is a 26 y/o @ 39 weeks 6 days who presented for leaking fluid and found to be ruptured with meconium stained fluid since 06/23 at an unknown time. She failed to progress after 24 hrs and over 12 hrs of pitocin with adequate contractions. The tracing was a category 2/ with late decelerations and minimal variability. A was recommended. Epidural anesthesia was placed without difficulty. Randolph catheter was placed. The patient was placed in the dorsal supine position with leftward tilt. Patient was prepped and draped in the normal sterile fashion. Pfannenstiel skin incision was made with the scalpel and carried through to the underlying layer of fascia with the scalpel. Fascia was nicked in the midline and the incision extended laterally. The rectus bellies were dissected off superiorly and inferiorly with out complication both sharply and bluntly. The peritoneum was entered digitally. The incision was stretched and a low transverse uterine incision was made with the scalpel. The 's head was delivered atraumatically followed by the anterior and posterior shoulders without complication the rest of the delivered. The cord was clamped and cut and the infant was handed off to awaiting nurse. The placenta was delivered spontaneously immediately following and was noted to be intact and have a three-vessel cord. The uterus was exteriorized cleared of all clots and debris, and the incision was closed in a double layer closure using #1 vicryl followed by #1 Monocryl. The ovaries and fallopian tubes were noted to be within normal limits. The uterus was returned to the maternal abdomen and gutters were cleared of all clots and debris. The peritoneum was closed with 3-0 Monocryl in a running fashion. Gloves were changed prior to fascial closure. Fascia was closed with 0 PDS Stratafix suture in a running fashion. Subcutaneous tissue was copiously irrigated and the skin was closed with 3-0 Monocryl in a subcuticular fashion. Mepilex dressing was applied without complication. Patient was taken to recovery in stable condition. It was discussed with the patient that based on the clinical information obtained during this encounter, combined with her history, at this time I would recommend either section of for future deliveries if further pregnancies are desired. Presentation: Positive for Vertex Amniotic Fluid Description: Moderate meconium Placental Delivery Description: Expressed Placenta Disposition: Sent to Pathology Cord Vessel Description: 3 Vessels Cord Entanglement: None Cord Gases: ABG and VBG A Gender: Male (1 minute): 8 (5 minute): 9 Delayed Cord Clamping: Yes Complications Risks of Surgery Discussed w/Patient: Bleeding, Anesthesia Risks, Infection and Need for Future C-Sections Complications: none Multi Select Codes Urinary/Genital Urinary/Genital CPT Codes: 03206 delivery only
--- NOTE | 2021-06-25 06:30 | PLAC_PTH ---
PATIENT: LARRY GALLARDO LOC: [facility] U#:[id number] AGE/SX: 26/F ROOM: WP011 RE06/24/[address]: Dr. Emily Velez DO : 1995 BED: 1 DIS: 06/26/2021 SPEC #: [id number] RECD: 06/25/21 07:45 STATUS: ANGEL AFSANEH #: [id number] EDWIGE: 06/25/21 06:[address]: Emily Velez DEPT: SURGICAL PATHOLOGY RECD BY: Diane Penn ENTERED: 06/25/21 08:17 SP TYPE: PLACENTA OTHR DR: Dr. Sami Oswald MD Tissues: Placenta, NOS Procedures: Surgery Specimen Level V HEADER OPERATION: Primary section PRE-OP DIAGNOSIS: COVID testing at [facility] TISSUE SUBMITTED: Placenta MICROSCOPIC DIAGNOSIS Placenta: Placental disc - third trimester placenta with a succenturiate lobe (550 gm). Membranes ? acute chorioamnionitis. Umbilical cord - three blood vessels and acute funisitis. SJ:quin 06/28/2021 MICROSCOPIC DESCRIPTION Slides are reviewed. GROSS DESCRIPTION SPECIMEN: PLACENTA / CLINICAL INFORMATION: A. Weight: 2.71 kg B. Gestational Age: 39 weeks C. Sex: Male PLACENTAL WEIGHT (POST FIXATION): 550 gm PLACENTAL DIMENSIONS: 16 x 15 x 4 cm. Succenturiate lobe measures 3 cm in greatest dimension. PLACENTAL SHAPE: Usual ovoid, with a succenturiate lobe. PLACENTAL WEIGHT FOR GESTATIONAL AGE: Within 10-99th percentile MEMBRANES - Present A. Insertion: Marginal B. Site of rupture from edge: At edge of placental disc, partly fragmented C. Color of membrane: Marx-greenish, mucoidy consistent with meconium staining D. Abnormalities: None UMBILICAL CORD - Present A. Color: Marx-perez B. Insertion: Paracentral C. Length: 37 cm D. Diameter: 1.2 cm E. Number of vessels: Three F. Abnormalities: None PLACENTAL DISC - Present A. Color of surface: Marx-perez B. surface abnormalities: None C. Maternal cotyledons: Intact with minimal tears D. Attached retro placental clot: No clot E. Cut surface: Dark red and spongy F. Lesions: None G. Separate clot: Absent SECTIONS SUBMITTED: 1. Membrane roll 2. Cord, maternal end, succenturiate lobe 3. Cord, end 4. Placental disc, and maternal surfaces 5. Placental disc, and maternal surfaces 6. Placental disc, and maternal surfaces 7. Membrane SJ:quin 06/26/2021 SJ:quin 06/27/2021 TC:2 CPT: 03176
[2021-06-25] MEDS: Oxytocin 30 units/NS 500 ml 30 UNITS/500 ML IV.SOLN 167 UNITS IV (06:48)
[2021-06-25] MEDS: Ketorolac 30 MG/ML Syringe IV ×3 (06:57→18:38)
[2021-06-25] MEDS: Acetaminophen 500 MG Tablet 1000 MG PO ×3 (06:58→18:39)
[2021-06-25] MEDS: 0.9% Saline Lock 10 ML Syringe IV ×2 (06:58→18:39)
[2021-06-25] MEDS: Lactated Ringers 1,000 ML 100 ML IV (09:30)
--- NOTE | 2021-06-25 09:49 | NURSING ---
Sebastián assuming care. Report given
[2021-06-25] MEDS: Senna/Docusate Sodium 1 Tablet PO (16:26)
[2021-06-25] MEDS: Enoxaparin 40 MG/0.4 ML Syringe SC (16:27)
[2021-06-26] VITALS (7 sets, daily range): BP systolic 108–129; BP diastolic 60–81; PULSE 82–99; RESP 16–18; TEMP 36.2–36.5; O2SAT 97–99
[2021-06-26] MEDS: Acetaminophen 500 MG Tablet 1000 MG PO ×3 (01:09→13:04)
[2021-06-26] MEDS: 0.9% Saline Lock 10 ML Syringe IV (01:14)
[2021-06-26] MEDS: Ketorolac 30 MG/ML Syringe IV (01:14)
[2021-06-26] MEDS: Ibuprofen 600 MG Tablet PO ×2 (06:29→13:03)
[2021-06-26 06:50] LABS: Hematocrit 24.2 % (37-47); Hemoglobin 8.3 g/dL (12.0-15.0); Mean Corp Hgb Conc 34.3 g/dL (32-36); Mean Corpuscular Hgb 31.1 pg (27.0-32.0); Mean Corpuscular Volume 90.6 fL (81-99); Mean Platelet Vol. 10.4 fl (6.2-12.0); Platelet Count 190 K/mm3 (150-450); RBC Distribution Width CV 12.6 % (11.6-14.6); RBC Distribution Width SD 41.1 fl (35.1-43.9); Red Blood Count 2.67 M/mm3 (4.2-5.4); White Blood Count 9.4 K/mm3 (4.4-11.0)
--- NOTE | 2021-06-26 07:44 | PCM.PN.OB ---
Subjective Subjective Patient doing well without complaints. Tolerating PO. Ambulating and voiding without difficulty. feeding well. Denies chest pain, shortness of breath, calf pain/swelling, fevers, chills, lightheadedness. Objective Data Objective Data Vital Signs: Vital Signs Temp Pulse Resp BP Pulse Ox 97.3 F L 83 16 117/60 98 06/26/21 03:57 06/26/21 03:57 06/26/21 03:57 06/26/21 03:57 06/26/21 03:57 Oxygen Delivery Method Room Air Weight: 160 lb 14.999 oz Body Mass Index (BMI) 25.2 Intake & Output: Intake and Output for Last 24 Hours 06/24/21 06/25/21 06/26/21 23:59 23:59 23:59 Intake Total 4089.45 / 4089.45 6942.23 / 6942.23 Output Total 1850 / 1850 5200 / 5200 400 / 400 Balance 2239.45 / 2239.45 1742.23 / 1742.23 -400 / -400 Lab / Micro Data Result Diagrams: 06/26/21 06:38 06/24/21 13:15 Labs: Laboratory Results - last 24 hr 06/25/21 08:20: Screen NEGATIVE, Baby's Blood Type O POSITIVE, Baby's MICHAEL NEGATIVE 06/26/21 06:38: WBC 9.4, RBC 2.67 L, Hgb 8.3 L, Hct 24.2 L, MCV 90.6, MCH 31.1, MCHC 34.3, RDW Std Deviation 41.1, RDW Coeff of Elsy 12.6, Plt Count 190, MPV 10.4 ROS Constitutional Constitutional: Reports systems reviewed and no addt'l complaints, except as documented Cardiovascular Cardiovascular: Reports systems reviewed and no addt'l complaints, except as documented Respiratory/Chest Respiratory/Chest: Reports systems reviewed and no addt'l complaints, except as documented Gastrointestinal Gastrointestinal: Reports systems reviewed and no addt'l complaints, except as documented Physical Exam Const alert, oriented x3 and no apparent distress HEENT Head and Scalp: atraumatic Resp normal respiratory effort GI soft to palpation and non-tender Inspection: incision intact, healing well and drainage (none) Bimanual Exam - Vag & Uterus: uterus non-tender Uterus Palpation: uterus fundus firm (below Umbilicus) Assessment & Plan (1) delivery w/o mention of indication, [facility]: COMMENT: cat II tracing JV covid pos LTCS syed Crockett PLAN: s/p LTCS PPD # 1 1. routine post care 2. breast feeding- support given 3. rh neg- rhogam PRN 4. rubella immune covid pos- precautions taken fu in office
[2021-06-26] MEDS: oxyCODONE 5 MG Tablet PO (07:48)
[2021-06-26] MEDS: Senna/Docusate Sodium 1 Tablet PO (09:50)
[2021-06-26] MEDS: Enoxaparin 40 MG/0.4 ML Syringe SC (09:50)
[2021-06-28 15:05] LABS: Pathology Specimen OB SEE PATHOLOGY REPORT
== END 2021-06-26 13:40 | disposition home or self-care (01) | DRG 540 ==
LOC: WP 06-25 05:26 → WPOUT 06-26 13:49
PROVIDERS: Admitting Provider Obstetrics & Gynecology; PCP Family Medicine; Visit Provider Obstetrics & Gynecology
DX: O62.2 Other uterine inertia (principal); O76 Abnormality in fetal heart rate and rhythm complicating labor and delivery; O42.92 Full-term premature rupture of membranes, unspecified as to length of time between rupture and onset of labor; O98.52 Other viral diseases complicating childbirth; U07.1 COVID-19; O99.52 Diseases of the respiratory system complicating childbirth; J98.8 Other specified respiratory disorders; Z3A.39 39 weeks gestation of pregnancy; Z37.0 Single live birth; O99.334 Smoking (tobacco) complicating childbirth; F17.210 Nicotine dependence, cigarettes, uncomplicated; O77.0 Labor and delivery complicated by meconium in amniotic fluid; Z56.0 Unemployment, unspecified
CPT/HCPCS: 59025; 59050; 80048; 80076; 80307; 81001; 82565; 82570; 84112; 84156; 84450; 84460; 84550; 85025; 85027; 85461; 86850; 86900; 86901; 88307; 90384; 99218; 99283; J7120; A4216; G0378; J2790

== ENCOUNTER 2021-07-06 11:10 | Outpatient (CLI) | payer MEDICAID, SELFPAY ==
[2021-07-06 11:34] LABS: Absolute Lymphocyte Count 2.25 X10^3/uL (0.83-4.51); Absolute Neutrophil Count 7.4 X10^3/uL (2.0-7.7); Basophil# 0.09 X10^3/uL; Basophil% 0.9 % (0-1); Eosinophil# 0.23 X10^3/uL; Eosinophils% 2.2 % (0-5); Hematocrit 34.1 % (37-47); Hemoglobin 11.4 g/dL (12.0-15.0); Lymphocyte # 2.25 X10^3/ul (0.83-4.51); Lymphocyte % 21.3 % (19-41); Mean Corp Hgb Conc 33.4 g/dL (32-36); Mean Corpuscular Hgb 29.8 pg (27.0-32.0); Mean Platelet Vol. 8.9 fl (6.2-12.0); Monocyte# 0.48 X10^3/uL; Monocyte% 4.5 % (0-10); NRBC Flagged by Analyzer 0 % (0-5); Neutrophil # 7.42 X10^3/uL (2.7-7.7); Neutrophil % 70.3 % (47-70); Platelet Count 500 K/mm3 (150-450); RBC Distribution Width CV 11.8 % (11.6-14.6); RBC Distribution Width SD 37.8 fl (35.1-43.9); Red Blood Count 3.83 M/mm3 (4.2-5.4); White Blood Count 10.6 K/mm3 (4.4-11.0)
== END 2021-07-06 23:59 | disposition short-term general hospital (02) ==
LOC: PAVLAB 11:12
PROVIDERS: PCP Family Medicine; Referring Provider Obstetrics & Gynecology; Visit Provider Obstetrics & Gynecology
DX: D64.9 Anemia, unspecified (principal)
CPT/HCPCS: 36415; 85025

== ENCOUNTER 2021-08-08 07:58 | Outpatient (CLI) | payer MEDICAID, SELFPAY ==
[2021-08-13 10:45] LABS: HPV Reflexed? NOT INDICATED
== END 2021-08-08 23:59 | disposition home or self-care (01) ==
LOC: LABSPEC 08-09 07:59
PROVIDERS: PCP Family Medicine; Visit Provider Obstetrics & Gynecology
DX: Z12.4 Encounter for screening for malignant neoplasm of cervix (principal)
CPT/HCPCS: 88175; G0145

== ENCOUNTER 2021-08-23 11:29 | Outpatient (CLI) | payer MEDICAID, SELFPAY ==
[2021-08-23 13:00] LABS: HIV - WCH Non-Reactive (Nonreactive); Hepatitis C Antibody Non-Reactive (Nonreactive); Syphilis Antibodies Non-reactive
[2021-08-26 07:07] LABS: Chlamydia By Nucleic Acid AMP Negative (Negative)
[2021-08-26 13:34] LABS: Gonococcus By Nucleic Acid AMP Negative (Negative)
== END 2021-08-23 23:59 | disposition home or self-care (01) ==
LOC: PAVLAB 11:30
PROVIDERS: PCP Family Medicine; Referring Provider Nurse Practitioner Women's Health; Visit Provider Nurse Practitioner Women's Health
DX: Z20.2 Contact with and (suspected) exposure to infections with a predominantly sexual mode of transmission (principal); N76.0 Acute vaginitis
CPT/HCPCS: 36415; 86703; 86780; 86803; 87070; 87205; 87491; 87591

== ENCOUNTER 2021-09-28 10:46 | Outpatient (CLI) | payer MEDICAID, SELFPAY ==
[2021-09-30 09:08] LABS: Chlamydia By Nucleic Acid AMP Negative (Negative)
[2021-09-30 10:19] LABS: Gonococcus By Nucleic Acid AMP Negative (Negative)
== END 2021-09-28 23:59 | disposition home or self-care (01) ==
LOC: LABSPEC 10:47
PROVIDERS: PCP Family Medicine; Visit Provider Obstetrics & Gynecology
DX: N89.8 Other specified noninflammatory disorders of vagina (principal); Z11.3 Encounter for screening for infections with a predominantly sexual mode of transmission
CPT/HCPCS: 87070; 87205; 87491; 87591

== ENCOUNTER → 2021-11-21 | Outpatient (CLI) | payer MEDICAID, SELFPAY ==
[2021-11-24 00:06] LABS: Chlamydia By Nucleic Acid AMP Negative (Negative)
[2021-11-24 11:36] LABS: Gonococcus By Nucleic Acid AMP Negative (Negative)
== END | disposition home or self-care (01) ==
LOC: LABSPEC 16:21
PROVIDERS: PCP Family Medicine; Visit Provider Nurse Practitioner Women's Health
DX: Z11.3 Encounter for screening for infections with a predominantly sexual mode of transmission (principal); N76.0 Acute vaginitis
CPT/HCPCS: 87070; 87205; 87491; 87591

== ENCOUNTER → 2022-04-11 | Outpatient (CLI) | payer MEDICAID, SELFPAY ==
[2022-04-16 12:40] LABS: Gonococcus By Nucleic Acid AMP Negative (Negative)
[2022-04-16 12:42] LABS: Chlamydia By Nucleic Acid AMP Positive (Negative)
== END | disposition home or self-care (01) ==
PROVIDERS: PCP Family Medicine; Visit Provider Nurse Practitioner Women's Health
DX: Z20.2 Contact with and (suspected) exposure to infections with a predominantly sexual mode of transmission (principal); N89.8 Other specified noninflammatory disorders of vagina
CPT/HCPCS: 87070; 87205; 87491; 87591

== ENCOUNTER → 2022-08-29 | Outpatient (CLI) | payer MEDICAID, SELFPAY ==
[2022-09-02 21:07] LABS: Chlamydia By Nucleic Acid AMP Negative (Negative)
[2022-09-02 21:24] LABS: Gonococcus By Nucleic Acid AMP Negative (Negative)
== END | disposition home or self-care (01) ==
LOC: LABSPEC 14:18
PROVIDERS: PCP Family Medicine; Referring Provider Obstetrics & Gynecology; Visit Provider Obstetrics & Gynecology
DX: N89.8 Other specified noninflammatory disorders of vagina (principal)
CPT/HCPCS: 87491; 87591

== ENCOUNTER → 2022-11-13 | Outpatient (CLI) | payer MEDICAID, SELFPAY ==
[2022-11-15 22:07] LABS: Chlamydia By Nucleic Acid AMP Negative (Negative); Gonococcus By Nucleic Acid AMP Negative (Negative)
== END | disposition home or self-care (01) ==
PROVIDERS: Visit Provider Nurse Practitioner Women's Health
DX: Z11.3 Encounter for screening for infections with a predominantly sexual mode of transmission (principal)
CPT/HCPCS: 87491; 87591

== ENCOUNTER 2022-12-25 14:06 | Emergency (ER) | payer MEDICAID, SELFPAY ==
[2022-12-25 14:08] VITALS: BP 121/87; PULSE 96; RESP 18; TEMP 35.3; O2SAT 97; BMI 18.8
[2022-12-25] MEDS: HYDROcodone Bitartrate/Apap 5/325 Tablet PO (14:40)
[2022-12-25] MEDS: Ondansetron ODT 4 MG Tablet 8 MG PO (14:40)
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
--- NOTE | 2022-12-25 16:01 | RAD_ITS ---
INDICATION: injury EXAMINATION/TECHNIQUE: X-RAY - RIGHT XR Hand Min 3 Views 3 VIEWS COMPARISON: FINDINGS: SOFT TISSUES: No soft tissue swelling or gas. No radiopaque foreign body. BONES/JOINTS: No acute fracture or subluxation.. Normal alignment. Preservation of the joint space.. No sclerotic or destructive changes observed. RAD/Hand Min 3 Views IMPRESSION: Negative. Electronically Signed: Fritz Bradley, at 16:13 EDT ,
[2022-12-25 16:22] VITALS: PULSE 87; RESP 16; O2SAT 99
== END 2022-12-25 16:48 | disposition home or self-care (01) ==
PROVIDERS: Emergency Provider Emergency Medicine; Visit Provider Emergency Medicine
DX: S02.2XXA Fracture of nasal bones, initial encounter for closed fracture (principal); F17.210 Nicotine dependence, cigarettes, uncomplicated; L03.012 Cellulitis of left finger; S00.83XA Contusion of other part of head, initial encounter; S09.8XXA Other specified injuries of head, initial encounter; Y04.8XXA Assault by other bodily force, initial encounter; S00.81XA Abrasion of other part of head, initial encounter
CPT/HCPCS: 70450; 70486; 71046; 73130; 99283

== ENCOUNTER → 2023-01-09 | Outpatient (CLI) | payer MEDICAID, SELFPAY ==
[2023-01-09 15:45] LABS: HIV - WCH Non-Reactive (Nonreactive); Hepatitis C Antibody Non-Reactive (Nonreactive); Syphilis Antibodies Non-reactive
[2023-01-13 05:06] LABS: Chlamydia By Nucleic Acid AMP Negative (Negative); Gonococcus By Nucleic Acid AMP Negative (Negative)
== END | disposition home or self-care (01) ==
PROVIDERS: Referring Provider Nurse Practitioner Women's Health; Visit Provider Nurse Practitioner Women's Health
DX: Z20.2 Contact with and (suspected) exposure to infections with a predominantly sexual mode of transmission (principal)
CPT/HCPCS: 36415; 86703; 86780; 86803; 87070; 87077; 87186; 87205; 87491; 87591

== ENCOUNTER 2023-01-14 08:00 | Outpatient (RCR) | payer MEDICAID, SELFPAY ==
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
--- NOTE | 2023-01-14 09:35 | BH.COMM_ITS ---
Communication Note Communication with Client Communication Note: Completed initial paperwork with pt. No changes since from intake assessment. Completed CSSR-S with pt and pt was low risk. Pt denies any current thoughts of and no suicidal ideations ever. Pt denies access to any weapons. Pt denies any self-harming behaviors. Discussed case with Dr. Lopez and will admit pt to [facility] with diagnosis of Bipolar 2 disorder F 3181.
--- NOTE | 2023-01-14 10:10 | BH.SGPN.GN ---
Behaviors/Verbalizations/Mental Status: []Eye contact is fair-looking at phone at times. Motor activity is appropriate. Appearance is casual. Speech is Appropriate. Mood is tired. Affect is congruent. Thoughts are linear and logical. No evidence of psychosis. Client Response/Progress/Benefit: []Pt was an active participant in group discussions. Engaged and provided feedback along with peers on defining anxiety. Along with peers, pt worked to identify the benefits of anxiety. Participated during interactive discussion on how anxiety impacts one physically, cognitively, and behaviorally. Completed worksheet on how anxiety impacts pt physically, cognitively, and behaviorally. Pt shared physically pt experiences biting her lip, restlessness, and IBS. Benefited from increased insight into anxiety's benefits and how diagnosable anxiety impacts functioning. Will continue in IOP tx to prevent decompensation, gain healthy coping skills, and improve daily functioning. Narrative Note: []
--- NOTE | 2023-01-14 11:10 | BH.SGPN.GN ---
Behaviors/Verbalizations/Mental Status: []Pt casually dressed and groomed. Eye contact fair. Motor activity appropriate. Speech within normal limits. Affect congruent, mood tired. Putting head down at times, stating she was very tired. Thoughts linear, logical, no signs of hallucinations or delusions. Client Response/Progress/Benefit: []Pt was an active participant in group discussion AEB providing contributions throughout group and listening attentively to others. Attentive during psychoeducation on mindfulness and ways to utilize mindfulness techniques to improve anxiety management. The group practiced deep breathing and the 5-senses during session. Engaged and attentive during group brainstorm of healthy anxiety reduction skills including thought challenging and behavioral changes. Appeared to benefit from practicing in the moment coping skills and increasing repertoire of anxiety management skills. Pt stated I don't know when asked what skill she would like to practice over the next week. Pt's first day in IOP. Pt will continue IOP tx to improve daily functioning, increase healthy coping, and prevent decompensation.
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
[2023-01-15 10:39] VITALS: BP 113/80; PULSE 76
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
--- NOTE | 2023-01-15 13:05 | BH.DR.ITP ---
Initial Treatment Plan Patient Information Visit Information: ADMISSION DATE: EXPECTED LOS: 4-6 weeks Problems/Symptoms Problem #1:: Mood instability Symptom:: Anger, irritability, sadness, biological disruption of sleep, decreased concentration, biological disruption of appetite Problem #2:: Anxiety Symptom:: Worry, panic attacks, nightmares, flashbacks, reexperiencing, avoidance
--- NOTE | 2023-01-15 15:29 | BH.MTP_ITS ---
Master Treatment Plan Patient Information Program Physician:: Rhonda Duenas Primary Therapist:: David Wallace Psychiatric Diagnoses Psychiatric Diagnoses:: 1. Bipolar 2 disorder 2. PTSD 3. Generalized anxiety disorder 4. Cannabis use disorder Diagnosis Code(s):: F31.81 Estimated LOS Estimated LOS (in weeks):: 8 Problem/Goal #1 Problem/Goal #1 Stated Goal:: Client will increase mood stability and reduce depression, irritability, and impulsivity AEB self-report and reduction of scores on the malick, depression, and anger domains of the DSM-5 outcomes measurement. Description of Barriers: Hx of non-compliance with treatment and medications, impulsivity, limited coping skills, limited support, financial issues, housing issues, legal issues. Functional Impact: Mood instability has led to legal issues, conflicted relationship with support, anger outbursts, and poor emotion regulation. Goal Relevant Strengths/Supports: resilient Objectives Objective #1: Stated Objective: Client will identify 5 physical warning signs, 2-3 anger triggers, and 5 ways to calm and manage anger. Pt will develop an anger scale indicating degrees of anger from 0-10 and physiological signals of his level of anger. Plan is become aware of escalating anger and implement skill early to avoid escalation. Interventions: Through individual and group counseling will education the client on calming techniques as part of a tailored strategy for reducing chronic and acute physiological tension that accompanies the escalation of his/her angry feelings. Discharge Criteria: Able to identify 5 physiological warning signs, 2-3 anger buttons, and 5 ways to calm. Target Date: 02/05/23 Review Date: 03/05/23 Objective #2: Stated Objective: Client will identify and 2-3 common cognitive distortions that add to negative thinking patterns and emotional dysregulation. Will be able to identify 2-3 skills to utilize to address negative automatic thoughts and cognitive distortions. Interventions: Through individual and group counseling will provide education on the most common cognitive distortions and teach client the conn ection between thoughts, emotions, and feelings. Therapist will assist client in identifying, challenging, and replacing dysfunctional thoughts with positive, more realistic thoughts. Discharge Criteria: Able to identify 2-3 commonly used cognitive distortions and 2-3 strategies to implement to address negative automatic thoughts. Target Date: 02/05/23 Review Date: 03/05/23 Problem/Goal #2 Problem/Goal #2 Stated Goal:: Learn and implement coping skills that result in a reduction of anxiety and worry, and improved daily functioning. Will develop a plan to manage trauma triggers and their overall impact on her mood and functioning. AEB self- report and reduction on scores on the anxiety domain of the DSM-5 cross-cutting scale Description of Barriers: Hx of non-compliance with treatment and medications, impulsivity, limited coping skills, limited support, financial issues, housing issues, legal issues. Functional Impact: Anxiety and trauma triggers can exacerbate her anger, hypervigilance, fear which leads to outbursts, avoidance, and panic attacks. Difficulty making and maintain healthy relationships due to trauma, anxiety, and fear. Goal Relevant Strengths/Supports: resilent Objectives Objective #1: Stated Objective: Pt will develop an anxiety management plan which include in the moment calming skills, physiological warning signs, anxiety-producing thoughts which exacerbate the anxiety, internal coping strategies (reframing, challenging, acceptance, etc.), external coping skills (support, distraction, etc.), and helpful affirmations. Interventions: Through individual and group counseling will provide psychoeducation on calming, internal, and external coping skills. Will assist client in exploring what triggers anxiety and teach client coping strategies to effectively manage anxiety symptoms Discharge Criteria: Will have developed that anxiety mgmt plan. Target Date: 02/05/23 Review Date: 03/05/23 Objective #2: Stated Objective: Client will be able to explain common stress reactions, symptoms related to trauma, and the impact that trauma has on the brain Interventions: Through individual and group counseling will provide psychoeducation on trauma, trauma trigger, and trauma responses. Discharge Criteria: Increase knowledge of trauma and the creation on a plan to manage trauma triggers Target Date: 02/05/23 Review Date: 03/05/23
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
--- NOTE | 2023-01-16 14:43 | BH.COMM ---
Communication Note Communication with Client Communication Note: Did not show for IOP this AM. Attempted to call. No answer and VM is full.
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
--- NOTE | 2023-01-21 11:10 | BH.SGPN.GN ---
Behaviors/Verbalizations/Mental Status: []Client alert and oriented, casually dressed and groomed. Eye contact fair. Motor activity appropriate. Speech within normal limits. Affect constricted, mood irritable. Thoughts linear, logical, no signs of hallucinations or delusions. Client Response/Progress/Benefit: []Pt was attentive throughout AEB contributing at times to small group discussion and self-reflection. Group finished processing cues to anger worksheet. Pt worked on completing own anger cycle. Shared one of her anger cycles is being woken up by mom which leads pt to think her mom is horrible and leads pt to feel irresponsible then starts yelling and screaming at her mom. Pt attentive as group brainstormed healthy coping skills for better managing anger which included: music, walking/exercise, taking a break, grounding tools, reflection, and journaling. Pt worked in small groups to identify ways could interrupt his anger cycle. Pt appeared to benefit from identifying different techniques to manage anger as well as gaining awareness of potential consequences of unmanaged anger. Will continue IOP tx to improve distress tolerance, increase consistent use of healthy coping skills, and prevent decompensation.
--- NOTE | 2023-01-21 11:10 | BH.SGPN.GN ---
Behaviors/Verbalizations/Mental Status: []Pt alert and oriented, casually dressed and groomed. Eye contact good. Motor activity appropriate. Speech within normal limits. Affect congruent, mood depressed and agitated. Thoughts linear, logical, no signs of hallucinations or delusions. Client Response/Progress/Benefit: []Pt responded well to session AEB contributing to discussion, taking notes, and listening attentively to others. Group discussed the benefits of managed anger and anger as a secondary emotion. Pt shared perspective on personal benefits of anger as emotional release or feeling heard. Pt completed worksheet on anger triggers and personal warning signs of anger. Pt identified their biggest triggers as disrespect, feeling manipulated, and repeating themself. Appeared to benefit from increased knowledge of the anger cycle as well as personal triggers. Pt to continue IOP to promote healthy coping skill application, improve mood stability, and prevent decompensation. Narrative Note: []
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
--- NOTE | 2023-01-22 10:10 | BH.SGPN.GN ---
Behaviors/Verbalizations/Mental Status: []Client alert and oriented, casually dressed and groomed. Eye contact good. Motor activity appropriate. Speech within normal limits. Affect congruent, mood euthymic and anxious. Thoughts linear, logical, no signs of hallucinations or delusions. Client Response/Progress/Benefit: []Pt engaged in session AEB listening attentively to others and providing insight to group discussion. Pt engaged in activity, able to connect how it can be uncomfortable and difficult to accept when things are out of one?s own control. Pt worked with group to identify what things in life can be hard to accept. Group identified things hard to accept as: of a loved one, body image, loss of relationship, mental health diagnosis, other?s behaviors, and past decisions. Pt worked on identifying what personal things are hard to accept for themself, sharing that discomfort, finances, other?s behaviors and change are things pt struggles with accepting. Pt seemed to benefit from increased awareness of importance of acceptance. Pt to continue IOP to improve mood stability, increase application of distress tolerance skills, and prevent decompensation. Narrative Note: []
--- NOTE | 2023-01-22 11:10 | BH.SGPN.GN ---
Behaviors/Verbalizations/Mental Status: []Pt alert and oriented, neatly dressed and groomed. Eye contact good. Motor activity appropriate. Speech within normal limits. Affect congruent, mood agitated and stressed. Thoughts linear, logical, no signs of hallucinations or delusions. Client Response/Progress/Benefit: []Pt responded well to session AEB taking notes and contributing to discussion throughout. Pt engaged as group continued discussion on acceptance and the mental health benefits of practicing acceptance. Pt and peers identified what makes acceptance challenging and pt completed a self-reflection exercise on what is hard to accept in pt's life. Pt identified struggling to accept her current living situation. Group identified strategies to increase acceptance and pt shared wanting to focus on reminding herself that even though things are hard right now, they are temporary. Pt appeared to benefit from gaining insight and learning strategies to increase acceptance. Pt will continue IOP tx to prevent decompensation, increase distress tolerance skills, and gain healthy support. Narrative Note: []
--- NOTE | 2023-01-22 15:21 | BH.MDN_ITS ---
Multi-Disciplinary Note Note 45-min Individual: Time Started:: 12:05 Date: 01/22/23 Purpose of session/treatment goals addressed:: Reviewed current symptoms and progress in IOP. Provided education on cognitive distortions and internal CBT coping skills. Eye Contact:: Intense Motor Activity:: Restless Appearance:: Disheveled Speech:: Appropriate Mood:: Irritable Affect:: Congruent Thoughts:: Linear, Logical and No evidence of hallucinations/delusions noted Staff Interventions:: psychoeducation on: (cognitive distortions), CBT techniques, strengths perspective and taught coping skills Client Response:: Pt continues to report struggles with mood management specifically irritability. She was presented with a significant stressor this week learning that she has a warrant out for missing a court date. Pt missed the court date due to being admitted to inpatient psych unit, however despite informing the courts and her PO of this a warrant was still placed out for her. Her railroad car repair supervisor, mother, and PO are aware. The warrant is for a small charge related to a verbal argument that occurred in her house in [place]. Pt is unsure of the actual charge however reports it had to do with obstruction. This event is what eventually led to her having a panic attack and voluntarily being admitted to psych unit. Another stressor that she is reporting is her relationship with her mother. According to patient they have never gotten along however currently they are living together. Pt reports that she often avoids her mother in order to prevent escalation or verbal arguments. She just doesn't know when to stop. Pt spent the night over her friends house last evening to avoid further conflict. Mother has no options for housing and her mother is helpful regarding childcare. I hate her but I need her. Provided support and empathy for her situation. Attempted to problem-solve and introduced anger mgmt strategies. Risks/Concerns:: Denies suicidal ideations, plan, or intent. No risks or concerns noted. Progress Toward Goals/Plan:: Limited progress due to significant psychosocial stressors (legal, housing, finances). Open to education on the role of complex trauma, trauma triggers, and cognitive distortions have on her anger and depression. Insight on the impact that her anger and decision-making have had on her life. Motivated to make changes. Started recently prescribed medication (Zyprexa) and reports I think I'm more calm on it. Willing to give it a chance. Consistent and engaged in IOP level of care. Participating in groups and reports benefits from peer support and education on skills. Still early in treatment however while in session she is able to make connections, verbalize skills, and display appropriate problem-solving skills. When presented with trauma triggers or perceives that others are disrespecting her she continues to struggle with utilizing CBT, calming skills, and effective conflict resolutions skills. Time Stopped:: 12:50
--- NOTE | 2023-01-23 10:10 | BH.SGPN.GN ---
Behaviors/Verbalizations/Mental Status: []Pt alert and oriented, casually dressed and appearing disheveled/ungroomed. Eye contact good. Motor activity appropriate. Speech within normal limits. Affect congruent, mood dysthymic. Thoughts linear, logical, no signs of hallucinations or delusions. Client Response/Progress/Benefit: []Pt was an active participant AEB providing input and was actively taking notes. Did well to participate and provide suggestions in group activity. Connected with the topic of pitfalls and listened to group discussion on internal and external barriers that prevent from choosing a healthier path to mental wellness. Group worked together to identify examples of personal internal pitfalls and pt identified hers as low self-respect, self-sabotage, and denial. Pt benefited from group as Pt learned to better identify and normalize potential barriers to improving mental health symptoms. Pt will continue IOP tx to prevent decompensation, increase mood management skills, and continue to promote thought challenging. Narrative Note: []
--- NOTE | 2023-01-23 11:10 | BH.SGPN.GN ---
Behaviors/Verbalizations/Mental Status: []Pt alert and oriented, casually dressed and groomed. Eye contact good. Motor activity appropriate. Speech within normal limits. Affect congruent. Mood euthymic. Thoughts linear, logical, no signs of hallucinations or delusions. Client Response/Progress/Benefit: []Pt was an active participant AEB contribution to discussion, taking notes, and willingness to engage in group activity. Connected with the topic of pitfalls and listened to group discussion on internal and external barriers that prevent from choosing a healthier path to mental wellness. Group worked together to identify examples of internal pitfalls. Pt identified personal pitfalls to include: fear of failure, poor communication, denial, low confidence, self sabotage, and lack of self respect. Pt benefited from group as pt learned to better identify and normalize potential barriers to improving mental health symptoms. Pt to continue IOP to improve distress tolerance, increase healthy coping, and prevent deocmpensation.
== END 2023-01-27 23:59 ==
LOC: BHIOP 08:00
PROVIDERS: Referring Provider Psychiatry & Neurology Psychiatry; Visit Provider Psychiatry & Neurology Psychiatry
DX: F31.9 Bipolar disorder, unspecified (principal); F43.10 Post-traumatic stress disorder, unspecified; F41.1 Generalized anxiety disorder; F12.90 Cannabis use, unspecified, uncomplicated
CPT/HCPCS: 90792; H2020; S9480; T1002; 90834

== ENCOUNTER 2023-01-28 07:18 | Outpatient (RCR) | payer MEDICAID, SELFPAY ==
--- NOTE | 2023-01-23 09:00 | BH.SGPN.GN ---
Behaviors/Verbalizations/Mental Status: [] Eye contact is good. Motor activity is appropriate. Appearance is casual. Speech is Appropriate. Mood is anxious/irritable. Affect is congruent. Thoughts are linear and logical. No evidence of psychosis. Reviewed daily check in sheet and no reports of suicidal ideations or intent. Client Response/Progress/Benefit: [] Active participant in group discussions. Attentive. Daily symptom tracker notes 1/5 for depression and 2/5 for anxiety. Emotion for today is ?content?. Reports feeling more ?calm? today and believes that her new medication may be helping. Shared that she had a pleasant evening with her mother and child last night ? we ate pizza and watched TV?. Improvement as pt and mother have a very conflicted relationship. Progress noted per pt report with decreased irritability. Stressor is ?court date? tomorrow. She did not elaborate more on this. Benefited from group support, encouragement, and feedback. Will continue in IOP to prevent decompensation, stabilize mood, and improve functioning. Narrative Note: []
[2023-01-28 00:25] VITALS: BP 113/80; PULSE 76
--- NOTE | 2023-01-28 11:00 | BH.COMM ---
Communication Note Communication with Client Communication Note: No call/ No show for IOP today
--- NOTE | 2023-01-29 11:00 | BH.COMM ---
Communication Note Communication with Client Communication Note: No call/ No show for IOP today. 2nd in a row. Called and left VM
--- NOTE | 2023-01-30 12:13 | BH.COMM ---
Communication Note Communication with Client Communication Note: No call/ No show for 3rd day in a row. Per policy after 3 will discharge. Discussed with team and we will keep pt enrolled in IOP until early next week to allow her more time to reach out and coordinate.
--- NOTE | 2023-02-03 11:16 | BH.COMM ---
Communication Note Communication with Client Communication Note: no call/ no show for IOP today.
--- NOTE | 2023-02-04 09:36 | BH.MDN ---
Multi-Disciplinary Note Note 30-min Individual: Time Started:: 09:00 Date: 02/04/23 Purpose of session/treatment goals addressed:: Reviewed current progress and symptoms. Addressed treatment goals 1 and 2. Eye Contact:: Good Motor Activity:: Appropriate Appearance:: Disheveled Speech:: Appropriate Mood:: Anxious Affect:: Congruent Thoughts:: Linear Staff Interventions:: thought challenging, CBT techniques and taught coping skills Client Response:: Pt reports several stressors and events since last session. Pt reports continued conflict and arguments with mother with whom she lives. Verbal arguments have escalated to the point of police being called on a two occasions last week. Due to a previous warrant she spent a night in residential last week. Blames her mother as mother called mainstreaming facilitator after verbal argument in which pt left the house. Currently has an open case with [employer] and according to patient a meeting was held yesterday with pt, pt's mother, and [employer] staff to address conflict at home and develop a plan b for patient if arguments continue. Pt reports she meets with [employer] showcase trimmer weekly and they are still working on plan b. Conflict with mother is long-standing we never got along. Pt started a new job this week which will limit the time spent with mother, provide a distraction, and allow for patient to save money. We reviewed past discussion on anger scale and grounding/coping skills. Processed two recent anger outbursts to identify strategies for growth. Identified physiological signs of anger, when to implement skills (at level 6 or below), anger buttons, and internal ways to change perspectives. Risks/Concerns:: No risks or concerns noted. Denies SI, HI, or psychosis. Progress Toward Goals/Plan:: Limited progress as pt has experienced several psychosocial stressors in the past week (legal, housing, relationship conflict). Primary stressor is current living arrangement with mother. Per pt living with her mother has been ordered by [employer] and any acute change will result in losing custody. Additional stress is that her car was repossessed meaning no transportation for her new job or to upcoming court dates (according to pt her mother is refusing to help). Difficult to make progress when basic needs (housing, transportation, etc) are primary obstacles. According to pt she has been medication compliant and feels calmer with decreased hypervigilance, and racing thoughts. Attendance in [facility] has been inconsistent due in large part to transportation issues, legal issues last week, and some difficulty with AM drowsiness related to new medication. Will continue in IOP to prevent decompensation/ re-admission to psych unit, to stabilize mood, and to increase healthy coping. Pt was given task to identify physiological warning signs to anger and practice coping/grounding skills. Time Stopped:: 09:30
--- NOTE | 2023-02-04 10:10 | BH.SGPN.GN ---
Behaviors/Verbalizations/Mental Status: []Pt alert and oriented, appropriate grooming/appearance. Eye contact good. Motor activity appropriate. Speech within normal limits. Affect congruent, mood anxious. Thoughts linear, logical, no signs of hallucinations or delusions. Client Response/Progress/Benefit: []Pt was an engaged participant AEB taking notes, engaging in small group discussion and listening attentively to others. Attentive during psychoeducation. Contributed during interactive discussions in which peers attempted to define crisis. Pt identified some examples of potential crisis. Group also worked together to identify unhealthy responses to crisis which included: isolation, self-harm, substance abuse, avoidance, and lashing out. Pt identified personal warning signs as: isolation, no self-care, and negative thinking. Benefited from increased understanding of crisis and awareness of personal responses to crisis. Pt will continue IOP tx to improve mood stability, increase healthy coping, and prevent decompensation.
--- NOTE | 2023-02-04 11:05 | BH.SGPN.GN ---
Behaviors/Verbalizations/Mental Status: [] Eye contact is good. Motor activity is appropriate. Appearance is casual. Speech is Appropriate. Mood is anxious/irritable. Affect is congruent. Thoughts are linear and logical. No evidence of psychosis. Client Response/Progress/Benefit: [] Pt was an active participant in group discussions. Attentive during psychoeducation. In small group pt along with peers developed an active plan for their crisis warning signs. Pt identified two crisis warning signs as well as an action plan for each. One crisis warning sign is isolation with an actions plan that involved; call/text a friend, opposite-action, engage in self-care, get outside, ask for help, set goals. Other warning sign was impulsive decisions with an action plan that involved; write ideas down, ask someone to help with decision-making, and think about consequences. Benefited from increased awareness of crisis warning signs and by developing crisis intervention strategies. Will continue in IOP to prevent decompensation/re-admission to psych unit, stabilize mood, increase healthy coping skills, and improve functioning. Narrative Note: []
--- NOTE | 2023-02-04 12:07 | PCM.BH.PN_ITS ---
Progress Note Progress Note: History of Present Illness/Interim History: The patient is a 27-year-old single female with a history of bipolar disorder, PTSD and marijuana use disorder who is seen in follow-up at the [facility] behavioral health IOP program where she is being treated for anxiety, depression and PTSD. I last saw the patient 3 weeks ago and at that time Zyprexa was started to augment her other medication and help with anxiety. The patient was compliant with the medication and feels it may have helped somewhat but the patient has continued ongoing conflict when she interacts with her mother. The patient's mother called the police on her after they had a conflict and the police picked up the patient and she was in senior living for a day and a half as there was an outstanding warrant due to her missing a court date while being inpatient at [facility] and early December 2022. The patient states that since moving back in with her mother her PTSD symptoms continue to be triggered as her mother yells and screams at her. She experiences hypervigilance, isolation, avoidance, worry, panic attacks and is irritable and angry when she lives with her mother. The patient states that she is able to care for her [id number] daughter. The mother does drug test the patient at home now for child protective services due to past issues. She is enjoying when she gets to be with her son. She denies passive thoughts of , suicidal ideation, plan for suicide, homicidal ideation, hallucinations or delusions. She has issues with her anger with her mother and impulsive activity at times. Current Psychiatric Medications: [] Zyprexa 5 mg p.o. daily (x3 weeks now) Mental Status Examination: [] The patient is a 27-year-old female who appears normal for stated age and is casually dressed and groomed with good hygiene. She has no psychomotor agitation or retardation and is ambulatory with a normal gait. She is cooperative and pleasant during the interview. Eye contact is good and speech is normal rate and rhythm and fluent with no pressure. Mood is mildly anxious. Affect is full and normal. Thought process is goal-directed and organized. Thought content: There is no evidence of passive thoughts of , suicidal ideation, plan for suicide, homicidal ideation, hallucinations or delusions. Reality testing is intact. Judgment is intact. Insight is limited. Impulsivity is high. Diagnoses: [] 1. Bipolar 2 disorder 2. PTSD 3. Generalized anxiety disorder 4. Cannabis use disorder 5. Primary support, financial and housing issues Plan: [] The patient will continue the IOP program at [facility] as the structure, support, education and group therapy will hopefully prevent worsening of the patient's symptoms which could require rehospitalization. She felt safe during the interview and if it anytime she does not feel safe she will let us know or go to the emergency room. The patient feels she may have gained a couple pounds on Zyprexa but says that she wanted to gain some weight and does not wish to get off the Zyprexa. She agrees to eat healthy while on Zyprexa. And she understands could cause weight gain. The patient agrees to increase her Zyprexa to 7.5 mg daily. In addition she will be started on Lamictal 25 mg p.o. daily for 2 weeks and then 50 mg p.o. daily for 2 weeks and then increase to 100 mg p.o. daily. She understands the risk of Hammer-Korey syndrome with Lamictal and will let us know if she develops a rash. She will continue to follow-up with her outpatient providers and I will see the patient in follow-up in 2 weeks.
--- NOTE | 2023-02-04 15:18 | BH.MTP_ITS ---
Treatment Plan Review Demographics Date of Admission:: 01/14/23 Date of Treatment Plan Review:: 02/04/23 Admitting Diagnoses:: 1. Bipolar 2 disorder 2. PTSD 3. Generalized anxiety disorder 4. Cannabis use disorder Current Diagnoses:: 1. Bipolar 2 disorder 2. PTSD 3. Generalized anxiety disorder 4. Cannabis use disorder Patient Status Patient's Response to Treatment:: Pt has struggled to attend IOP consistently in the past 2 weeks often not call or showing for schedules IOP days. In the past 2 weeks she has attended twice and not showed for four days. Inconsistent attendance is related to legal issues (spent a night in skilled nursing), transportation issues (car was repossessed), started a new job (4pm-12am), and side effects from medication (AM drowsiness). Along with other psychosocial issues such as frequent verbal conflicts with mother (police called on two occasions) it has resulted in difficulty with adhering to IOP schedule. When present pt is engaged in treatment and has consistently taken recommended medications which she reports have been helpful with racing thoughts, anxiety, and mood management. Status of Current Problems and Symptoms: According to DSM-5 outcomes pt reports an overall 11% decrease in symptoms since admission. Scores indicate a 34% reduction on the anger domain, 17% reduction on the anxiety domain, and a 40% reduction on the malick domain. Pt did report a 34% increase in the depression domain. Despite recent significant psychosocial stressors and inconsistent attendance pt has still managed to show improvement, however her impulsivity, poor anger mgmt skills, and erratic moods continue to impact her functioning and relationships. These aspects have either exacerbated or led to frequent conflict with her mother, police, and [employer] workers. Inconsistent attendance has been an obstacle for consistent treatment and psychoeducation on anger mgmt skills, CBT techniques, effective communication, and calming skills. Progress Problem #1: Problem Name:: Mood Instablity Status of Goals:: Obj 1- has begun to identify physiological signs of anger and ways to calm however not completed. Obj 2- Able to identify anger buttons however not able to identify her automatic thoughts that exacerbate anger and ways to reframe Team Recommendations:: continue with goals, encourage consistent attendance. Problem #2: Problem Name:: Anxiety Status of Goals:: Obj 1- She can identify calming skills however has struggled to utilize these consistently, requires more psychoeducation, practice, and accountability. Obj 2- During individual counseling pt has been given very brief education on trauma and its impact on the brain, thoughts, and behaviors. Team Recommendations:: continue with goals, encourage consistent attendance.
--- NOTE | 2023-02-05 13:34 | BH.COMM ---
Communication Note Communication with Client Communication Note: No call/ No show for IOP today
--- NOTE | 2023-02-06 10:47 | BH.COMM ---
Communication Note Communication with Client Communication Note: No call/ no show for IOP today.
--- NOTE | 2023-02-07 09:00 | BH.SGPN.GN ---
Behaviors/Verbalizations/Mental Status: [] Eye contact is good. Motor activity is appropriate. Appearance is casual. Speech is Appropriate. Mood is anxious/irritable. Affect is congruent. Thoughts are linear and logical. No evidence of psychosis. Reviewed daily check in sheet and no reports of suicidal ideations or intent. Client Response/Progress/Benefit: [] Pt was an active participant in group discussion. Attentive. Emotion for today is motivated. Shared with the group that she started a job this week. This is positive for her mental health as it provides structure, healthy social interactions, improve fiances, and provides a distraction. She also reports that the job is helping with finances. Shared that she struggles with racing thoughts and keeping busy is beneficial to her mental health, decreased her rumination/anger, and provides purpose. Her new job has led to inconsistency with IOP program, however despite that she showed 2 out of 3 days this week. Primary stressor continues to be legal issues and living with my mom. She has a court date this afternoon. Progress noted per pt report. Will continue in IOP prevent decompensation/re-admission to psych unit, stabilize mood, and to increase healthy coping skills. Narrative Note: []
--- NOTE | 2023-02-07 10:10 | BH.SGPN.GN ---
Behaviors/Verbalizations/Mental Status: []Eye contact is good. Alert and oriented. Motor activity is appropriate. Appearance is casual. grooming is appropriate. Speech is Appropriate. Mood is euthymic. Affect is congruent. Thoughts are linear and logical. No evidence of psychosis or hallucinations. Client Response/Progress/Benefit: []Client was an active participate AEB providing contributions, listening attentively to others, and taking notes throughout. The group identified the impact of emotions on communication such as change in tone, body language, shutting down, misperceiving the communication, and not being able to express oneself. During group activity, client identified feeling frustrated with not being able to effectively communicate the instructions she wanted to. Pt did well to use humor and taking a step back to regulate as well as willing to process with the group. Client benefited from session by gaining an increased understanding on the importance of managing emotions to improve daily functioning. Client will continue IOP to further promote mood stability, improve use of skills for better symptom management and conflict resolution, and prevent decompensation. Narrative Note: []
--- NOTE | 2023-02-11 09:01 | BH.SGPN.GN ---
Behaviors/Verbalizations/Mental Status: []Pt alert and oriented, casually dressed and groomed. Eye contact good. Motor activity appropriate. Speech within normal limits. Affect congruent and bright, mood euthymic. Thoughts linear, logical, no signs of hallucinations or delusions. Reviewed pt?s symptom tracker, no suicidal ideation reported, denies plan, or active intent as of 02/11/23. Client Response/Progress/Benefit: []Pt responded well to session, open to processing with group and engaged. Pt reports feeling content this morning. Did well to identify current wins which included getting her license back and being approved for mental health court, as well as taking steps to begin looking for a house or apartment for pt and her son to move. Expressed feeling proud of the progress she has been making. Current stressor noted as not being able to find her IOP binder and discussed plans to contact her case operator to see if she left in in their car. Pt appeared to benefit from supportive feedback of the group, as well as reflecting on mental health wins. Pt will continue IOP tx to promote mood stability, improve distress tolerance and healthy conflict resolution, and continue to prevent decompensation. Narrative Note: []
--- NOTE | 2023-02-11 10:10 | BH.SGPN.GN ---
Behaviors/Verbalizations/Mental Status: []Pt alert and oriented, casually dressed and groomed. Eye contact good. Motor activity appropriate. Speech within normal limits. Affect congruent, mood euthymic. Thoughts linear, logical, no signs of hallucinations or delusions. Client Response/Progress/Benefit: []Pt receptive of session, engaged throughout AEB taking notes and listening to discussion, but pt also engaging in side conversations. Pt easily redirected. Appeared to connect with group topic of cognitive distortions and the impact of thought patterns on mental health, coping behaviors, and relationships. Pt reports connecting with distortions of disqualifying the positives, catastrophizing, and minimizing which has kept pt from acknowledging her strengths and impacts motivation. Pt appeared to benefit from gaining insight on distorted thinking patterns and how this impacts overall mental health. Will continue IOP tx to increase consistent use of healthy coping skills, improve mood stability, and increase impulse control. Narrative Note: []
--- NOTE | 2023-02-11 11:10 | BH.SGPN.GN ---
Behaviors/Verbalizations/Mental Status: [] Eye contact is good. Motor activity is appropriate. Appearance is casual. Speech is Appropriate. Mood is anxious. Affect is congruent. Thoughts are linear and logical. No evidence of psychosis Client Response/Progress/Benefit: [] Pt was an active participant during group discussions and activity. Pt was placed in a smaller group and participated in quiz-show format in which small groups competed against each-other to answer questions based on identifying, challenging, and reframing cognitive distortions as a way to practice and apply recent psychoeducation. Pt was engaged in her smaller group, participated in group interactions to brainstorm answers, and appeared to be comprehending cognitive distortions. Benefited from gaining further insight and awareness of cognitive distortions as well as practicing ways to reframe and challenge thoughts. Will continue in IOP to prevent decompensation, stablize mood, and increase healthy coping skills. Narrative Note: []
--- NOTE | 2023-02-13 10:17 | BH.COMM ---
Communication Note Communication with Client Communication Note: No call/ no show
--- NOTE | 2023-02-14 10:18 | BH.COMM ---
Communication Note Communication with Client Communication Note: No call/ no show. Pt only attended IOP once this week. Therapist will reach out to discuss and problem-solve attendance issues.
--- NOTE | 2023-02-18 09:05 | BH.SGPN.GN ---
Behaviors/Verbalizations/Mental Status: [] Eye contact is good. Motor activity is restless. Appearance is casual. Speech is Appropriate. Mood is anxious/irritable. Affect is congruent. Thoughts are linear and logical. No evidence of psychosis. Reviewed daily check in sheet and no reports of suicidal ideations or intent. Client Response/Progress/Benefit: [] Pt participated at times during the group discussion. Attentive. Daily symptom tracker notes 07/04 for anxiety and irritability. Shared that she begins mental health court today and hopes that this diversion program will be beneficial. Emotion for today is mellow. Shared struggles over the weekend with impulsivity, anger mgmt, and emotion regulation. She talked about the events that occured, the possible triggers, and her regret. She has insight into where it all went wrong and is currently able to identify strategies and skills that she could have implemented to decreased distress. Limited progress noted per pt report due to emotion regulation and poor decision-making this weekend. Benefited from group support, encouragment, and feedback. Will continue in IOP to prevent decompensation/re-admission, stablize mood, and increase healthy coping skills. Narrative Note: []
--- NOTE | 2023-02-18 11:10 | BH.SGPN.GN ---
Behaviors/Verbalizations/Mental Status: []Pt casually dressed and groomed. Eye contact fair. Motor activity appropriate. Speech within normal limits. Affect congruent, mood tired. Thoughts linear, logical, no signs of hallucinations or delusions. Client Response/Progress/Benefit: []Pt was an active participant in group discussion AEB providing contributions throughout group and listening attentively to others. Pt identified anxiety safety behaviors for self to include: drink alcohol, nicotine, binge eating, reckless behavior, and seeking reassurance. Attentive during psychoeducation on mindfulness and ways to utilize mindfulness techniques to improve anxiety management. The group receptive to learning about belly breathing and grounding tools. Engaged and attentive during group brainstorm of healthy anxiety reduction skills including thought challenging and behavioral changes. Appeared to benefit from practicing in the moment coping skills and increasing repertoire of anxiety management skills. Pt stated making list and yoga as skills would like to practice over the next week. Pt will continue IOP tx to improve mood stability, increase use of skills, and prevent decompensation.
--- NOTE | 2023-02-18 11:21 | BH.MDN ---
Multi-Disciplinary Note Note 60-min Individual: Time Started:: 10:10 Date: 02/18/23 Purpose of session/treatment goals addressed:: Used to session to review progress and current symptoms. Addressed treatment plan goals 1 and 2. Eye Contact:: Good Motor Activity:: Appropriate Appearance:: Casual Speech:: Appropriate Mood:: Anxious Affect:: Congruent Thoughts:: Linear, Logical and No evidence of hallucinations/delusions noted Staff Interventions:: discharge planning, strengths perspective, reviewed DSM-5, goal setting and other (developed relapse prevention strategies and skills to manage alcohol cravings ) Client Response:: Used the first part of the session to review her DSM-5 outcome scores. Due to inconsistent attendance last week therapist was not able to meet with pt. Refer to treatment plan review for more information on outcome scores. Pt's overall scores showed reduction in symptoms. She reported recent slip ups which we reviewed and processed. She had insight and awareness regarding how an event lead to cognitive distortions and negative automatic thoughts which eventually led to poor decision-making and an anger outburst. Processing the event helped her gain awareness and develop strategies to incorporate in the future. Romantic relationships are a difficult area to navigate due to past trauma which was at the root of recent poor decisions I know that I need to focus on myself right now and get my mental health straight. She also mentioned a slip-up regarding a verbal argument with mother which was actually a sign of progress. According to pt despite her mother pushing her buttons she was able to not engage or react with anger like I would have 3 weeks ago. Risks/Concerns:: No risks or concerns noted. Progress Toward Goals/Plan:: Overall pt reports more mellow mood with decreased anger outbursts, racing thoughts, and impulsive behaviors. She has maintained her full-time job and believes that she is excelling I'm getting along with everyone and they love me too. A couple recent bad decisions or slip-ups however pt is honest I know I fucked up. 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 She would like to speak with program psychiatrist about starting Naltrexone and has agreed to make a list of motivators to remain sober which she will review if she has cravings. Also admits to sporadic non-compliance with medication recommendations in the past week Its always been a struggle for me to remember to take meds. Agrees to be consistent with medications. Currently this is pt's 5th week so we began to discuss discharge. She has mental health court meeting this afternoon and she will learn more about what this entails. She was given referral to [facility] last week and she is also linked with a counselor from [facility]. We will touch base later this week on this. Time Stopped:: 11:00
--- NOTE | 2023-02-20 09:04 | BH.SGPN.GN ---
Behaviors/Verbalizations/Mental Status: [] Pt eye contact good, casually dressed, motor activity appropriate, speech normal rate and tone, mood euthymic and fatigued, congruent affect, thoughts linear and intact, no evidence of delusions or hallucinations. Per pt's symptom tracker, pt denies any suicidal ideation, plan, or intent as of this date. Client Response/Progress/Benefit: [] Client responded well to session as evidenced by listening attentively to others and sharing thoughts and feelings. Client reported mental health positive as getting to spend quality time with her son over the weekend. Reports this always improves her mood and reminds her why she is making healthy changes in her life. Additional win noted as following through with mental health court and finding the heading saw operator was very supportive of her as a result. 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 Expressed anxiety as she has not had to take this test in several years. Seemed to benefit from support from peers. Client to continue IOP to continue use of healthy coping skills, maintain mood stability, and prevent decompensation. Narrative Note: []
--- NOTE | 2023-02-20 10:12 | BH.SGPN.GN ---
Behaviors/Verbalizations/Mental Status: []Pt alert and oriented, casually dressed and groomed. Eye contact poor-on her phone a lot during session. Motor activity appropriate. Speech within normal limits. Affect congruent, mood hyper. Thoughts linear, logical, no signs of hallucinations or delusions. Client Response/Progress/Benefit: []Pt was an active participant in group discussions. Attentive during psychoeducation on 4 types of conflict styles (Competing, Collaborating, Avoiding, and Accommodating). Worked with group to define conflict and identify how conflict is helpful. With peers identified barriers to addressing or managing conflict which included: not wanting to hurt others, lack of communication skills, and cognitive distortions. Pt believes they use the competing style the most. Pt has had legal issues before due to her response to conflict. Benefited from group due to increase insight and awareness of benefits to conflict, conflict styles, and obstacles to managing conflict. Will continue IOP tx to monitor mood, increase distress tolerance skills, and improve daily functioning. ? Narrative Note: []
--- NOTE | 2023-02-25 09:38 | BH.COMM ---
Communication Note Communication with Client Communication Note: cancelled IOP today due to a court hearing.
--- NOTE | 2023-02-27 12:59 | BH.MDN_ITS ---
Multi-Disciplinary Note Note 45-min Individual: Time Started:: 10:00 Date: 02/27/23 Purpose of session/treatment goals addressed:: Met with pt to review progress and discuss aftercare. Eye Contact:: Poor Motor Activity:: Appropriate Appearance:: Disheveled Speech:: Appropriate Mood:: Irritable and Depressed Affect:: Congruent Thoughts:: Linear, Logical and No evidence of hallucinations/delusions noted Staff Interventions:: psychoeducation on: (self-care, boundary setting) and discharge planning Client Response:: Pt reports being so fucking tired. Shared that she has been working 6 days a week from 5pm-1am. Since she does not have a car or a license she relies on others to transport her to and from appointments, work, and court this week. Feels overwhelmed with work, legal, caring for her 18 month old, and following through with children services responsibilities. Recently her mother quit her job and according to patient has been requesting money from patient which is impacting her ability to save. Admits to poor attendance at IOP this week due to numerous responsibilities, lack of transportation, and limited sleep. She is very drowsy this AM with difficulty staying awake. Overall she reports no significant anxiety or depression. No mention of panic attacks or anger outbursts I'm too busy and tired for all that. Has maintained her job for the past several weeks and police have not been out to her house due to conflict with her mother. She has stopped her medications I just struggle with taking them consistently. Used the rest of the session to discuss aftercare plans. Risks/Concerns:: Denies SI, plan, or intent. No risk or concerns noted. Progress Toward Goals/Plan:: Regression noted since last session. Due to numerous psychosocial stressors, responsibilities, lack of resources, legal stress, and working 6 days a week she is clearly tired, worn-out, and overwhelmed. She denies significant mental health distress noting instead if I could just sleep for 24 hours everything would be OK, but I can't because I have to work. She missed two IOP days this week due to having a court hearing and dentist appointment yesterday (needed several fillings). Was scheduled to meet with program psychiatrist yesterday and we rescheduled for next week. She reports being linked with mental health court through [facility] and is also linked with dual diagnosis counselor ([facility]). According to patient she reached out to [facility] for psychiatry and they are not taking an new patients. Psychiatry resources are limited in the area with extensive waitlists. There are two medical laboratory technologist starting at a local agency next week which may be her best chance, however currently they are not making appointments till 03/07/23. Due to lack of sleep and drowsiness this therapist excused her from IOP groups and encouraged her to go home to sleep before returning to work this evening. Plan is to discharge next week from IOP. While her attendance has been inconsistent (mainly due to lack of transportation and work hours) she had shown significant improvement in IOP (refer to treatment plan review) prior to this week. Time Stopped:: 10:45
== END 2023-02-27 23:59 ==
LOC: BHIOP 07:18
PROVIDERS: Referring Provider Psychiatry & Neurology Psychiatry; Visit Provider Psychiatry & Neurology Psychiatry
DX: F31.81 Bipolar II disorder (principal); F43.10 Post-traumatic stress disorder, unspecified; F41.1 Generalized anxiety disorder; F12.90 Cannabis use, unspecified, uncomplicated
CPT/HCPCS: 99214; H2012; H2020; S9480; 90832; 90834; 90837

== ENCOUNTER → 2023-03-11 | Outpatient (CLI) | payer MEDICAID, SELFPAY ==
[2023-03-12 21:07] LABS: Chlamydia By Nucleic Acid AMP Negative (Negative); Gonococcus By Nucleic Acid AMP Negative (Negative)
== END | disposition home or self-care (01) ==
LOC: LABSPEC 11:40
PROVIDERS: Referring Provider Advanced Practice Midwife; Visit Provider Advanced Practice Midwife
DX: N89.8 Other specified noninflammatory disorders of vagina (principal)
CPT/HCPCS: 87491; 87591

== ENCOUNTER → 2023-07-15 | Outpatient (CLI) | payer MEDICAID, SELFPAY ==
[2023-07-18 04:07] LABS: Chlamydia By Nucleic Acid AMP Negative (Negative); Gonococcus By Nucleic Acid AMP Negative (Negative)
== END | disposition home or self-care (01) ==
LOC: LABSPEC 14:57
PROVIDERS: Referring Provider Nurse Practitioner Women's Health; Visit Provider Nurse Practitioner Women's Health
DX: N89.8 Other specified noninflammatory disorders of vagina (principal)
CPT/HCPCS: 87070; 87205; 87491; 87591

== ENCOUNTER → 2023-07-18 | Outpatient (CLI) | payer MEDICAID, SELFPAY ==
--- NOTE | 2023-07-18 17:20 | RAD_ITS ---
STUDY: X-RAY - LUMBAR SPINE REASON FOR EXAM: Female, 28 years old. SCOLIOSIS, LUMBAR STRAIN TECHNIQUE: 2 view(s) of the lumbar spine were obtained. COMPARISON: None FINDINGS: Normal lumbar lordosis. There is a mild scoliosis with transition at L2-3. There is a normal alignment of the vertebrae. Normal vertebral bodies and endplates. Normal disc space heights. The soft tissue structures are unremarkable. RAD/Lumbar Spine 2 or 3 Views IMPRESSION: Mild scoliosis of the lumbar spine. Electronically Signed: Bladimir Gill DO at 18:17 EST Reading Location ID and State: [facility] / [place] Tel [phone], Service support ,
--- NOTE | 2023-07-18 17:20 | RAD_ITS ---
STUDY: X-RAY - CERVICAL SPINE REASON FOR EXAM: Female, 28 years old. SCOLIOSIS, CERVICAL STRAIN TECHNIQUE: 3 view(s) of the cervical spine were obtained. COMPARISON: None FINDINGS: Normal anterior atlantoaxial articulation. Normal odontoid process. Straightening of the cervical lordosis. Normal vertebral bodies and endplates. Normal disc space heights. Normal visualized intervertebral neuroforamina. The soft tissue structures are unremarkable. RAD/Cerv Spine 2 or 3 Views IMPRESSION: No acute bony injury of the visualized cervical spine. Electronically Signed: Bladimir Gill DO at 17:41 EST Reading Location ID and State: [facility] / [place] Tel [phone], Service support ,
== END | disposition home or self-care (01) ==
LOC: LAB 17:11
PROVIDERS: Referring Provider Chiropractor; Visit Provider Chiropractor
DX: S39.012A Strain of muscle, fascia and tendon of lower back, initial encounter (principal); S16.1XXA Strain of muscle, fascia and tendon at neck level, initial encounter; M41.9 Scoliosis, unspecified
CPT/HCPCS: 72040; 72100

== ENCOUNTER → 2023-09-15 | Outpatient (CLI) | payer MEDICAID, SELFPAY ==
[2023-09-15 10:26] LABS: hCG Titer Quant., Serum 586 mIU/mL (1-3)
== END | disposition home or self-care (01) ==
LOC: PAVLAB 09:50
PROVIDERS: Referring Provider Obstetrics & Gynecology; Visit Provider Obstetrics & Gynecology
DX: N93.9 Abnormal uterine and vaginal bleeding, unspecified (principal)
CPT/HCPCS: 36415; 84702

== ENCOUNTER 2023-09-16 09:27 | Day surgery (SDC) | payer MEDICAID, SELFPAY ==
[2023-09-16] VITALS (18 sets, daily range): BP systolic 91–137; BP diastolic 57–91; PULSE 61–93; RESP 12–24; TEMP 36.7–36.9; O2SAT 98–100; BMI 20.3
--- NOTE | 2023-09-16 10:20 | ED.VIS.FEGU ---
HPI HPI - Female History of Present Illness Chief Complaint: Vag Bld, Preg Informant: patient Pain Pain: Positive for Pelvic Pain Onset: Yesterday Context: Gradual Onset Timing: Continuous Quality: Positive for Stabbing Location: RLQ Worsened by: - (Standing) Relieved by: - (Nothing) Bleeding Issue: Positive for Vaginal bleeding Onset: Today Context: Gradual Onset Timing: Continuous Current Severity: Similar to period Associated Symptoms Associated Symptoms: Negative for Dysuria or Frequency Test: Positive P: 1 Narrative Narrative: Patient presents with vaginal bleeding and right lower abdominal pain. Patient states she had a positive test. Patient states she was told that if she developed any pain on 1 side of her pelvis that she should come to the emergency department. Patient states that her pain started yesterday and is gradually gotten worse. Patient describes it as stabbing. Patient states it is worse with standing. Patient states it is localized to the right side of her pelvis. Patient states that she has had some vaginal bleeding for the past several days but became worse today. Patient states that now her bleeding is similar to her menstrual periods. Patient denies any fevers or chills. Patient is 2 para 1. Patient states she had a serum hCG done at her PRINTING SPECIALIST's office and it was 586. [facility] Medical History Bipolar 2 disorder Cannabis use disorder delivery w/o mention of indication, deliv, curr hospitaliz Generalized anxiety disorder Genital herpes affecting Gestational HTN History of molar PTSD (post-traumatic stress disorder) uterus chemotherapy Home Medications lamotrigine 25 mg tablet (Lamictal) 25 mg PO DAILY 30 days #42 tabs 02/04/23 [Rx Last Taken Unknown] olanzapine 7.5 mg tablet (Zyprexa) 7.5 mg PO QHS 30 days #30 tabs 02/04/23 [Rx Last Taken Unknown] metronidazole 0.75 % (37.5 mg/5 gram) vaginal gel 1 appful vaginal .COMPLEX #70 grams 07/15/23 [Rx Last Taken Unknown] Allergy/AdvReac Type Severity Reaction Status Date / Time No Known Allergies Allergy Verified 09/16/23 09:28 Surgical History delivery delivered H/O dilation and curettage Social History adopted: No household members: significant other current occupational status: employed 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 Smoking Status: Current every day smoker tobacco type: cigarettes alcohol intake: never substance use type: does not use what type of physical activity do you participate in: walking seatbelt use: always do you feel safe at home: Yes ROS ROS ED Constitutional Constitutional ED: Denies chills or fever(s) Eyes Eyes: Denies blurry vision or change in vision ENT ENT ED: Denies rhinorrhea or sore throat Cardiovascular Cardiovascular: Denies chest pain or palpitations Respiratory/Chest Respiratory/Chest: Denies cough or dyspnea Gastrointestinal Gastrointestinal: Reports nausea; Denies vomiting Genitourinary Genitourinary ED: Denies dysuria or hematuria Musculoskeletal Musculoskeletal: Reports back pain; Denies neck pain Integumentary Denies abscess or rash Neurologic Neurologic: Reports headache(s); Denies weakness Allergic/Immunologic Allergic/Immunologic ED: Denies mouth swelling or urticaria EXAM Physical Exam Const Vital Signs: 09/16/23 09:28 09/16/23 09:28 09/16/23 11:23 Temperature 98.2 F 98.2 F Temperature Source Temporal Temporal Pulse Rate 85 85 68 Respiratory Rate 16 16 16 Blood Pressure 105/72 105/72 91/57 L Blood Pressure Mean 83 83 67 Pulse Ox 100 100 100 Oxygen Delivery Method Room Air Room Air 09/16/23 11:24 09/16/23 11:30 09/16/23 11:40 Temperature Temperature Source Pulse Rate 72 Respiratory Rate 13 Blood Pressure 108/71 Blood Pressure Mean 81 Pulse Ox 100 100 100 Oxygen Delivery Method 09/16/23 11:50 09/16/23 12:00 09/16/23 12:10 Temperature Temperature Source Pulse Rate 67 61 Respiratory Rate 14 12 Blood Pressure 102/59 L Blood Pressure Mean 72 Pulse Ox 100 99 100 Oxygen Delivery Method 09/16/23 12:20 09/16/23 12:30 09/16/23 13:00 Temperature Temperature Source Pulse Rate 61 Respiratory Rate 16 Blood Pressure 106/70 103/62 Blood Pressure Mean 80 73 Pulse Ox 100 100 Oxygen Delivery Method Positive well nourished and well developed General Appearance ED: well developed and NAD HEENT Reports moist mucous membranes Neck supple and no JVD Resp normal respiratory effort and clear to auscultation bilaterally Cardio regular rate and regular rhythm GI soft to palpation and non-distended Palpation: tender RLQ and RUQ Extremity normal to inspection and full ROM Neuro oriented x3, CN's II-XII intact bilaterally and no sensory deficits noted Sensorium / Orientation: alert Motor Exam: strength 5/5 throughout Psych mental status grossly normal Skin no rashes or lesions noted MDM MDM MDM Narrative Medical decision making narrative: Differential diagnosis includes ectopic , ovarian cyst, ovarian torsion, mesenteric adenitis, appendicitis, and abnormal vaginal bleeding. CBC will be obtained to assess for leukocytosis and anemia. Basic metabolic profile will be obtained to assess for electrolyte abnormality and renal function. Serum quantitative hCG will be obtained to assess for status. Urinalysis will be obtained to assess for urinary tract infection. Pelvic ultrasound will be obtained to assess for ectopic . Lab Data Attestation: I reviewed the patient's lab results. Lab results narrative: CBC was reviewed and was within normal limits. Basic metabolic profile was reviewed and was essentially within normal limits. Quantitative hCG was reviewed and was 425. This is decreased from yesterday. Urinalysis was reviewed. There is no evidence of urinary tract infection or hematuria. Blood type was reviewed and was a negative. Labs: Laboratory Results - last 24 hr 09/16/23 09/16/23 09:49 11:25 WBC 4.6 RBC 4.72 Hgb 13.4 Hct 40.0 MCV 84.7 MCH 28.4 MCHC 33.5 RDW Std Deviation 35.8 RDW Coeff of Elsy 11.6 Plt Count 240 MPV 10.6 Immature Gran % (Auto) 0.400 Neut % (Auto) 49.1 Lymph % (Auto) 31.3 Kleberg % (Auto) 5.8 Eos % (Auto) 12.1 H Baso % (Auto) 1.3 H Absolute Neuts (auto) 2.3 Absolute Lymphs (auto) 1.45 Nucleated RBC % 0 Sodium 139 Potassium 3.6 Chloride 107 Carbon Dioxide 28.0 Anion Gap 4 L BUN 16 Creatinine 0.85 Estim Creat Clear Calc 93.36 Est GFR (MDRD) Af Amer 104 Est GFR (MDRD) Non-Af 86 BUN/Creatinine Ratio 18.8 Glucose 60 L Calcium 9.0 HCG, Quant 425 H Urine Color Yellow Urine Clarity Sl. Cloudy Urine pH 7.0 Ur Specific [employer] 1.010 Urine Protein Negative Urine Glucose (UA) Normal Urine Ketones Negative Urine Occult Blood 250 H Urine Nitrite Negative Urine Bilirubin Negative Urine Urobilinogen Normal Ur Leukocyte Esterase Negative Urine RBC 5-10 SEEN Urine WBC 0 SEEN Ur Squamous Epith Cells 0-5 SEEN Urine Bacteria 0 SEEN Urine Mucus 0 SEEN Blood Type A NEGATIVE Radiography Diagnostic Testing: Clinical Impression(s) from Imaging Studies Obstetrics Ultrasound 09/16/23 10:25 IMPRESSION: No intrauterine gestation is seen. 1.1 cm x 1.5 cm x 1.4 cm complex cystic structure in the right adnexa. An ectopic should be ruled out. Moderate amount of free fluid in the cul-de-sac. Electronically Signed: Tariq Bojorquez MD at 12:23 EDT , Pelvic ultrasound was obtained. There is no intrauterine gestation noted. There is a 1.1 x 1.5 x 1.4 complex cystic structure in the right adnexa. There is moderate amount of free fluid in the cul-de-sac. This was interpreted by the radiologist and was also independently reviewed by myself. Management Discussion w/another healthcare provider: Hydrogen Plant Operations Manager (Dr. Rhonda Howell) Treatment and Re-Evaluation Narrative: Patient was given IV fluids, morphine, and Zofran. Patient was given a repeat dose of morphine. Patient was advised of her findings. Case was discussed with Dr. Rhonda Howell. She was in to evaluate the patient. She will take the patient to surgery for removal of ectopic . Patient understood and was agreeable with the plan. She requested that we give the patient RhoGAM prior to going to the operating room. This was ordered. Discharge Plan Triage Chief Complaint: Vag Bld, Preg ED Provider: Pedro Luis Lackey Dx/Rx/DC Orders Clinical Impression: Ectopic Prescriptions: No Action olanzapine [Zyprexa] 7.5 mg tablet 7.5 mg PO QHS 30 Days Qty: 30 1RF lamotrigine [Lamictal] 25 mg tablet 25 mg PO DAILY 30 Days Qty: 42 0RF Rx Instructions: Take 1 po daily x 14 days, then 2 (50mg) po daily x 14 days. metronidazole 0.75 % (37.5mg/5 gram) gel 1 appful vaginal .COMPLEX Qty: 70 5RF Rx Instructions: 1 appful vaginally QHS X 5 nights then once a week Primary Care Provider: Care Physician,No Primary Referrals: Care Physician,No Primary [Primary Care Provider] - Disposition Disposition: Acute Care Hospital [facility]
--- NOTE | 2023-09-16 10:25 | US_ITS ---
STUDY: FIRST TRIMESTER OBSTETRICAL ULTRASOUND REASON FOR EXAM: Female, 28 years old Pelvic pain LMP: August 29, 2023. TECHNIQUE: Transvaginal TECHNICAL QUALITY: Adequate. PRIOR ULTRASOUND: None. FINDINGS: There is no demonstrated intrauterine gestational sac. There is no demonstrated yolk sac. The placenta is non-visualized. There is no demonstrated embryo ( pole). The estimated gestation age (EGA) by LMP is 2 weeks, 4 days. The estimated date of delivery (SANDHYA) by LMP is June 04, 2024. The uterus measures 7.4 cm x 4.2 cm x 3.4 cm. There is no demonstrated uterine fibroid. The cervix is closed. The right ovary measures 2.5 cm x 2.2 cm x 1.5 cm. There is no right ovarian cyst. There is a 1.1 cm x 1.5 cm x 1.4 cm complex cystic structure in the right adnexa. Ectopic should be ruled out. The left ovary measures 3.6 cm x 3 cm x 2.4 cm. There is a 2.2 cm x 2.3 cm x 1.5 cm left ovarian cyst. There is no visualized left adnexal mass or complex lesion. There is a moderate amount of fluid in the cul de sac. US/Transvaginal w/Preg US IMPRESSION: No intrauterine gestation is seen. 1.1 cm x 1.5 cm x 1.4 cm complex cystic structure in the right adnexa. An ectopic should be ruled out. Moderate amount of free fluid in the cul-de-sac. Electronically Signed: Tariq Bojorquez MD at 12:23 EDT ,
[2023-09-16] MEDS: Ondansetron 4 MG/2 ML Vial IV (10:37)
[2023-09-16] MEDS: Morphine 4 MG/ML Syringe IV ×2 (10:38→12:48)
[2023-09-16] MEDS: 0.9% Normal Saline (1000mL) 1,000 ML 1000 ML IV (10:38)
[2023-09-16 10:53] LABS: Anion Gap 4 (5-15); BUN 16 mg/dL (7-18); BUN/Creat Ratio 18.8 RATIO (10-20); Chloride 107 mmol/L (98-107); Creatinine, Serum 0.85 mg/dL (0.55-1.02); EST Glomerular Filtration Rate 86 mL/min (>60); Est Glom Filt Rate - Afr Amer 104 mL/min (>60); Estimated Creatinine Clearance 93.36 ml/min; Glucose 60 mg/dL (74-106); Potassium 3.6 mmol/L (3.5-5.1); Sodium Level 139 mmol/L (136-145)
[2023-09-16 10:58] LABS: hCG Titer Quant., Serum 425 mIU/mL (1-3)
[2023-09-16 11:06] LABS: Absolute Lymphocyte Count 1.45 X10^3/uL (0.83-4.51); Absolute Neutrophil Count 2.3 X10^3/uL (2.0-7.7); Basophil# 0.06 X10^3/uL; Basophil% 1.3 % (0-1); Eosinophil# 0.56 X10^3/uL; Eosinophils% 12.1 % (0-5); Hemoglobin 13.4 g/dL (12.0-15.0); Lymphocyte # 1.45 X10^3/ul (0.83-4.51); Lymphocyte % 31.3 % (19-41); Mean Corp Hgb Conc 33.5 g/dL (32-36); Mean Corpuscular Hgb 28.4 pg (27.0-32.0); Mean Corpuscular Volume 84.7 fL (81-99); Mean Platelet Vol. 10.6 fl (6.2-12.0); Monocyte# 0.27 X10^3/uL; Monocyte% 5.8 % (0-10); NRBC Flagged by Analyzer 0 % (0-5); Neutrophil # 2.27 X10^3/uL (2.7-7.7); Neutrophil % 49.1 % (47-70); Platelet Count 240 K/mm3 (150-450); RBC Distribution Width CV 11.6 % (11.6-14.6); RBC Distribution Width SD 35.8 fl (35.1-43.9); Red Blood Count 4.72 M/mm3 (4.2-5.4); White Blood Count 4.6 K/mm3 (4.4-11.0)
[2023-09-16 11:31] LABS: Bacteria 0 SEEN /hpf (None Seen); Mucous, Urine 0 SEEN /hpf (<or=2+)
[2023-09-16 11:34] LABS: Color, Urine Yellow (Yellow); Glucose, Dipstick Normal (Normal); Ketone-Dipstick Negative (Negative); Leukocyte Esterase-Dipstick Negative /ul (Negative); Nitrite-Dipstick Negative (Negative); Occult Blood-Urine 250 /ul (Negative); Protein-Dipstick Negative (Negative); Urine Bilirubin Dipstick Negative (Negative); Urine Clarity Sl. Cloudy (Clear); Urine Urobilinogen Normal (Normal)
[2023-09-16 11:44] LABS: Red Blood Cells-Urine 5-10 SEEN /hpf (0-5); Squamous Epithelial Cells - UA 0-5 SEEN /hpf (5-10); White Blood Cells 0 SEEN /hpf (0-5)
--- NOTE | 2023-09-16 13:21 | PCM.HP.STD ---
HPI - General HPI Narrative LARRY GALLARDO, is a 28 F who presents with acute lower pelvic pain and vaginal bleeding, she is diagnosed with an ectopic with suspicion of rupture, normal hemoglobin but fluid in the cul de sac. she started having bleeding, had an HCG yesterday and then hadd increasing pain today that brought her into the ER today for evlauation. [facility] Medical History (Updated 09/16/23 @ 14:00 by Liza Carter LPN) Bipolar 2 disorder Cannabis use disorder delivery w/o mention of indication, [place], curr hospitaliz Generalized anxiety disorder Genital herpes affecting Gestational HTN History of molar PTSD (post-traumatic stress disorder) uterus chemotherapy Home Medications lamotrigine 25 mg tablet (Lamictal) 25 mg PO DAILY 30 days #42 tabs 02/04/23 [Rx Last Taken Unknown] olanzapine 7.5 mg tablet (Zyprexa) 7.5 mg PO QHS 30 days #30 tabs 02/04/23 [Rx Last Taken Unknown] metronidazole 0.75 % (37.5 mg/5 gram) vaginal gel 1 appful vaginal .COMPLEX #70 grams 07/15/23 [Rx Last Taken Unknown] amoxicillin 500 mg capsule 500 mg PO 4X/DAY 09/16/23 [History Last Taken 09/16/23] oxycodone-acetaminophen 5 mg-325 mg tablet (Percocet) 1 tab PO Q6H PRN pain 7 days #10 tabs 09/16/23 [Rx Last Taken Unknown] Allergy/AdvReac Type Severity Reaction Status Date / Time No Known Allergies Allergy Verified 09/16/23 13:35 Surgical History (Updated 09/16/23 @ 15:[address] 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 Smoking Status: Current every day smoker tobacco type: cigarettes alcohol intake: never substance use type: does not use what type of physical activity do you participate in: walking seatbelt use: always do you feel safe at home: Yes ROS Review of Systems ROS Unobtainable: due to mental status and other Constitutional Constitutional: Reports systems reviewed and no addt'l complaints, except as documented; Denies as per HPI, change in weight, fatigue, fever(s), malaise, weakness or other Eyes Eyes: Reports systems reviewed and no addt'l complaints, except as documented; Denies as per HPI, change in vision or other ENT HEENT: Reports as per HPI and dizziness; Denies dry mouth, headache(s), loss taste/smell, nasal congestion, nasal discharge, neck pain, sore throat or other Respiratory/Chest Respiratory/Chest: Reports systems reviewed and no addt'l complaints, except as documented Gastrointestinal Gastrointestinal: Reports systems reviewed and no addt'l complaints, except as documented and nausea; Denies vomiting Musculoskeletal Musculoskeletal: Reports systems reviewed and no addt'l complaints, except as documented; Denies back pain or joint pain Neurologic Neurologic: Reports systems reviewed and no addt'l complaints, except as documented Psychiatric Psychiatric: Reports systems reviewed and no addt'l complaints, except as documented Endocrine Endocrinology: Reports systems reviewed and no addt'l complaints, except as documented Hematologic/Lymphatic Hematologic/Lymphatic: Reports systems reviewed and no addt'l complaints, except as documented Vital Signs Vital Signs Vital Signs: 09/16/23 09:28 09/16/23 09:28 09/16/23 11:23 Temperature 98.2 F 98.2 F Temperature Source Temporal Temporal Pulse Rate 85 85 68 Respiratory Rate 16 16 16 Blood Pressure 105/72 105/72 91/57 L Blood Pressure Mean 83 83 67 Pulse Ox 100 100 100 Oxygen Delivery Method Room Air Room Air 09/16/23 11:24 09/16/23 11:30 09/16/23 11:40 Temperature Temperature Source Pulse Rate 72 Respiratory Rate 13 Blood Pressure 108/71 Blood Pressure Mean 81 Pulse Ox 100 100 100 Oxygen Delivery Method 09/16/23 11:50 09/16/23 12:00 09/16/23 12:10 Temperature Temperature Source Pulse Rate 67 61 Respiratory Rate 14 12 Blood Pressure 102/59 L Blood Pressure Mean 72 Pulse Ox 100 99 100 Oxygen Delivery Method 09/16/23 12:20 09/16/23 12:30 09/16/23 13:00 Temperature Temperature Source Pulse Rate 61 Respiratory Rate 16 Blood Pressure 106/70 103/62 Blood Pressure Mean 80 73 Pulse Ox 100 100 Oxygen Delivery Method Weight Weight: 130 lb Body Mass Index (BMI) 20.3 Physical Exam Const alert, oriented x3 and no apparent distress HEENT normocephalic Head and Scalp: atraumatic Eyes EOMs intact bilaterally and conjunctivae normal Neck full ROM, no lymphadenopathy, supple and thyroid normal General: trachea midline Lymph Lymphatic: no lymphadenopathy noted Resp normal respiratory effort, no retractions, no use of accessory muscles and clear to auscultation bilaterally Cardio regular rhythm GI normal to inspection, nondistended, normoactive bowel sounds, soft to palpation, non-distended and no masses Inspection: Negative for abdominal distention Palpation: tender Back/Spine no CVA tenderness Extremity normal to inspection Skin no rashes or lesions noted Neuro moves all extremities and deep tendon reflexes 2+ bilaterally Motor Exam: clonus absent Psych mental status grossly normal Results Lab / Micro Data 09/16/23 09:49 09/16/23 09:49 Labs: Laboratory Results - last 24 hr 09/16/23 09:49: WBC 4.6, RBC 4.72, Hgb 13.4, Hct 40.0, MCV 84.7, MCH 28.4, MCHC 33.5, RDW Std Deviation 35.8, RDW Coeff of Elsy 11.6, Plt Count 240, MPV 10.6, Immature Gran % (Auto) 0.400, Neut % (Auto) 49.1, Lymph % (Auto) 31.3, Perkins % (Auto) 5.8, Eos % (Auto) 12.1 H, Baso % (Auto) 1.3 H, Absolute Neuts (auto) 2.3, Absolute Lymphs (auto) 1.45, Nucleated RBC % 0, Sodium 139, Potassium 3.6, Chloride 107, Carbon Dioxide 28.0, Anion Gap 4 L, BUN 16, Creatinine 0.85, Estim Creat Clear Calc 93.36, Est GFR (MDRD) Af Amer 104, Est GFR (MDRD) Non-Af 86, BUN/Creatinine Ratio 18.8, Glucose 60 L, Calcium 9.0, HCG, Quant 425 H, Blood Type A NEGATIVE 09/16/23 11:25: Urine Color Yellow, Urine Clarity Sl. Cloudy, Urine pH 7.0, Ur Specific [place] 1.010, Urine Protein Negative, Urine Glucose (UA) Normal, Urine Ketones Negative, Urine Occult Blood 250 H, Urine Nitrite Negative, Urine Bilirubin Negative, Urine Urobilinogen Normal, Ur Leukocyte Esterase Negative, Urine RBC 5-10 SEEN, Urine WBC 0 SEEN, Ur Squamous Epith Cells 0-5 SEEN, Urine Bacteria 0 SEEN, Urine Mucus 0 SEEN Imaging Radiology Impression Obstetrics Ultrasound 09/16/23 10:25 IMPRESSION: No intrauterine gestation is seen. 1.1 cm x 1.5 cm x 1.4 cm complex cystic structure in the right adnexa. An ectopic should be ruled out. Moderate amount of free fluid in the cul-de-sac. Electronically Signed: Tariq Bojorquez MD at 12:23 EDT , Assessment & Plan Assessment/Plan (1) Ectopic : PLAN: Plan After discussing the patient's diagnosis and treatment plan options, patient wishes to proceed with surgical management. I have discussed with the patient the risks, benefits, and alternatives of the procedure which include but are not limited to risks of anesthesia, bleeding, infection, possible damage to bowel, bladder, or surrounding vasculature which could lead to additional surgery to evaluate any complications. Patient agrees to procedure and wishes to proceed. ACOG/uptodate references given for additional information regarding procedure.
--- NOTE | 2023-09-16 13:27 | ED.RN ---
Nurse gave report to LUIS ALBERTO Najera in surgery. All questions answered.
--- NOTE | 2023-09-16 13:35 | FAL_PTH ---
PATIENT: LARRY GALLARDO LOC: [facility] [place] U#:[id number] AGE/SX: 28/F ROOM: RE09/16/[address]: Dr. Rhonda Howell MD : 1995 BED: DIS: 09/16/2023 SPEC #: [id number] RECD: 09/16/23 16:03 STATUS: ANGEL REGaviota #: [id number] EDWIGE: 09/16/23 13:[address]: Rhonda Howell DEPT: SURGICAL PATHOLOGY RECD BY: Diane Penn ENTERED: 09/17/23 08:46 SP TYPE: ECTOPIC OTHR DR: No Primary Care Phys Tissues: ECTOPIC PREG Procedures: Surgery Specimen Level IV HEADER OPERATION: Laparoscopic, Removal ectopic , Right salpingectomy PRE-OP DIAGNOSIS: Ectopic TISSUE SUBMITTED: Right fallopian tube and ectopic MICROSCOPIC DIAGNOSIS Right fallopian tube, salpingectomy; Chorionic villi, decidualized stroma and trophoblastic cells consistent with tubal . AM: 09/18/2023 MICROSCOPIC DESCRIPTION Slides are reviewed. GROSS DESCRIPTION Received in fixative is one container labeled with the patient's name and designated Right fallopian tube and ectopic . The specimen consists of the fallopian tube measuring 5.5cm in length and up to 2.0cm in dimeter. The fimbrial end is identified. Piece of blood clot is also present in the container measuring 3.0x1.0x1.0cm. Sections of fallopian tube reveals it is filled with blood clots. No obvious tissue is identified. Director Diabetes sections are submitted in 4 cassettes. Cassette 4 contains the fimbrial end. ELLIOTT/ 09/17/2023 TC:5 CPT: 61598
[2023-09-16] MEDS: Lactated Ringers 1,000 ML 15 ML IV (13:44)
[2023-09-16] MEDS: Bupivacaine 0.25% 30 ML Vial (14:44)
--- NOTE | 2023-09-16 15:59 | DCINST_ITS ---
Discharge Instructions Diet Discharge Diet: No restrictions Activity Discharge Activity: Return to Normal Activity, May Not Drive (for 2 weeks or while taking narcotic pain meds.), May Shower and May Take a Tub Bath (in 7 days) May resume sexual activity in: 1 week Weight Bearing Status: Full weight bearing Dressing / Incision Call your doctor if your incision/area has: Continuous Slow Oozing, Sudden Increased Bleeding, Increased Pain/ Swelling, Increased Redness and Foul Smelling Discharge Call your doctor if you observe: Fever of 101 or Higher, Using more than 1 pad per hour, Shortness of breath, Chest pain and Uncontrolled pain Suture Line Care: Avoid Pulling/Pushing and Avoid Pinching/Bending Remove Dressing in: 1 week (if present) Cleanse incision/area with: Soap & Water and Keep Dressing Clean & Dry Follow Up Care When: Call to make an appointment with your doctor for a fu/incision check in 1- 2 weeks. Test Results: Test results from this visit will be discussed in further detail at your follow- up appointment, if applicable. Discharge Plan Admission Attending Provider: Rhonda Howell Primary Care Provider: Care PhysicianAna Cristina Primary Discharge Orders/Prescriptions Prescriptions: New oxycodone-acetaminophen [Percocet] 5-325 mg tablet 1 tab PO Q6H PRN (Reason: pain) 7 Days Qty: 10 0RF No Action olanzapine [Zyprexa] 7.5 mg tablet 7.5 mg PO QHS 30 Days Qty: 30 1RF lamotrigine [Lamictal] 25 mg tablet 25 mg PO DAILY 30 Days Qty: 42 0RF Rx Instructions: Take 1 po daily x 14 days, then 2 (50mg) po daily x 14 days. amoxicillin 500 mg capsule 500 mg PO 4X/DAY metronidazole 0.75 % (37.5mg/5 gram) gel 1 appful vaginal .COMPLEX Qty: 70 5RF Rx Instructions: 1 appful vaginally QHS X 5 nights then once a week Referrals / Follow Up: Care Physician,Ana Cristina Primary [Primary Care Provider] - Disposition Disposition (needs filled in before D/C Order can be placed): Home, Self Care
--- NOTE | 2023-09-16 15:59 | PCM.OPRPT ---
Problems Associated Problem List Diagnoses (1) Ectopic : (2) History of salpingectomy: Report of Operation Date of Procedure: 09/16/23 Pre-Operative Diagnosis: see problem list Post-Operative Diagnosis: same Surgery/Procedure Performed:: laparoscopic right salpingectomy Description of Surgical Findings:: ruptured ectopic Surgeon: Rhonda Howell equipment services associate: Clary Padilla Type of Anesthesia: General and Local Specimen's removed: tube and ectopic Drains: none Estimated Blood Loss (mL): 50 Fluids Replaced: crystalloid Description of Procedure: Patient was taken in the operating room and was placed under general anesthesia was prepped and draped in normal sterile fashion in the dorsal lithotomy position. Bladder was drained of clear urine and SCDs were on preoperatively. Uterus was sounded and a uterine manipulator was placed after dilating. Attention was then paid to the abdominal portion of the procedure and the umbilicus was elevated with towel clamps and injected with Marcaine and after a 12 mm incision was made and the Veress needle was entered into the abdomen confirmed to be intra-abdominal with a low opening pressure of less than 5 mmHg. Abdomen was insufflated with CO2 gas and a 12 mm optical trocar was placed under direct visualization. A 5 mm port was placed in the right and left lower quadrant ports under direct visualization. Uterus was well visualized and there is noted to be a right ruptured ectopic coming from the right fallopian tube. Blood and clot were seen in the cul-de-sac. Fallopian tube was elevated and mesosalpinx transected and abnormal portion of the fallopian tube and were removed without complication and then placed in a bag and removed through the 12 mm port site. Liver and upper abdomen were visualized notably within normal limits and no other gross abnormalities were seen in the abdomen. All instruments removed from the abdomen after gas was desufflated. Galen Reese was used to place a suture of 0 Vicryl through the 12 mm port site fascial incision. All port sites were closed with 3-0 Monocryl Steri's and op sites were applied. All instruments removed from the vagina and patient was awoken and taken recovery in stable condition. Grafts/Implants Used: none Complications none Admit VTE Documentation VTE Present on Admission: No VTE Mechan Device Prophylaxis: SCD's Procedures Urinary/Genital [id number]: 09138 Treat ectopic lapro w/ salpingectomy
[2023-09-16] MEDS: Oxycodone/Apap 5/325 Tablet PO (16:25)
[2023-09-16] MEDS: Rho(D) Immune Globulin 300 MCG (1500 Unit) Syringe IV (16:26)
== END 2023-09-16 16:59 | disposition home or self-care (01) ==
LOC: ED 13:22 → SDC 13:25 → ACINP 13:26
PROVIDERS: Emergency Provider Emergency Medicine; Visit Provider Obstetrics & Gynecology
PROC: 10T24ZZ Resection of Products of Conception, Ectopic, Percutaneous Endoscopic Approach (ICD-10-PCS; CPT 59150; principal; 2023-09-16 13:20)
DX: O00.101 Right tubal pregnancy without intrauterine pregnancy (principal); F31.81 Bipolar II disorder; F43.10 Post-traumatic stress disorder, unspecified; F41.1 Generalized anxiety disorder; O02.0 Blighted ovum and nonhydatidiform mole; F17.210 Nicotine dependence, cigarettes, uncomplicated; O99.330 Smoking (tobacco) complicating pregnancy, unspecified trimester; O99.344 Other mental disorders complicating childbirth
CPT/HCPCS: 59151; 00840; 76817; 80048; 81001; 84702; 85025; 86900; 86901; 88305; 90384; 99285; J7120; A4216; J2405; J2790; J2791

== ENCOUNTER → 2023-11-10 | Outpatient (CLI) | payer MEDICAID, SELFPAY ==
[2023-11-10 18:22] LABS: hCG Titer Quant., Serum 21 mIU/mL (1-3)
[2023-11-10 18:29] LABS: AST(SGOT) 14 U/L (15-37); Alanine Aminotransfer ALT/SGPT 19 U/L (13-56); Albumin, Serum 3.7 g/dL (3.2-5.0); Alkaline Phosphatase 64 U/L (45-117); Bilirubin, Direct 0.06 mg/dL (0.00-0.30); Cholesterol 166 mg/dL (200); Globulin 3.6 g/dL (2.2-4.2); High Density Lipoprotein 53 mg/dL; Protein, Total 7.3 g/dL (6.4-8.2); T4 Free Direct 0.88 ng/dL (0.76-1.46); Thyroid Stim Hormone (TSH) 2.23 uIU/mL (0.358-3.74); Triglycerides 60 mg/dL; Very Low Density Lipoprotein 12 mg/dL (5-40)
== END | disposition home or self-care (01) ==
LOC: LAB 16:57
PROVIDERS: Obstetrics & Gynecology; PCP Nurse Practitioner; Referring Provider Nurse Practitioner; Visit Provider Nurse Practitioner
DX: Z00.00 Encounter for general adult medical examination without abnormal findings (principal); N93.9 Abnormal uterine and vaginal bleeding, unspecified; F41.9 Anxiety disorder, unspecified
CPT/HCPCS: 80061; 80076; 84439; 84443; 84702

== ENCOUNTER → 2023-11-12 | Outpatient (CLI) | payer MEDICAID, SELFPAY ==
[2023-11-12 17:18] LABS: hCG Titer Quant., Serum 17 mIU/mL (1-3)
== END | disposition home or self-care (01) ==
LOC: LAB 16:40
PROVIDERS: PCP Nurse Practitioner; Referring Provider Nurse Practitioner Women's Health; Visit Provider Nurse Practitioner Women's Health
DX: O03.9 Complete or unspecified spontaneous abortion without complication (principal)
CPT/HCPCS: 36415; 84702

== ENCOUNTER → 2023-11-17 | Outpatient (CLI) | payer MEDICAID, SELFPAY ==
[2023-11-17 09:57] LABS: hCG Titer Quant., Serum 1 mIU/mL (1-3)
== END | disposition home or self-care (01) ==
PROVIDERS: PCP Nurse Practitioner; Referring Provider Nurse Practitioner Women's Health; Visit Provider Nurse Practitioner Women's Health
DX: N91.2 Amenorrhea, unspecified (principal)
CPT/HCPCS: 36415; 84702

== ENCOUNTER → 2024-03-31 | Outpatient (CLI) | payer MEDICAID, SELFPAY ==
[2024-03-31 15:59] LABS: HIV - WCH Non-Reactive (Nonreactive); Hepatitis B Surface Antigen Non-Reactive (Nonreactive); Hepatitis C Antibody Non-Reactive (Nonreactive); Syphilis Antibodies Non-reactive
[2024-04-05 21:07] LABS: Chlamydia By Nucleic Acid AMP Negative (Negative); Gonococcus By Nucleic Acid AMP Negative (Negative)
== END | disposition home or self-care (01) ==
PROVIDERS: PCP Nurse Practitioner; Referring Provider Nurse Practitioner Family; Visit Provider Nurse Practitioner Family
DX: N94.89 Other specified conditions associated with female genital organs and menstrual cycle (principal); Z11.3 Encounter for screening for infections with a predominantly sexual mode of transmission
CPT/HCPCS: 36415; 86703; 86780; 86803; 87070; 87077; 87205; 87340; 87491; 87591

== ENCOUNTER → 2024-07-05 | Outpatient (CLI) | payer MEDICAID, SELFPAY ==
[2024-07-08 20:07] LABS: Chlamydia By Nucleic Acid AMP Positive (Negative); Gonococcus By Nucleic Acid AMP Negative (Negative)
== END | disposition home or self-care (01) ==
LOC: LABSPEC 16:32
PROVIDERS: PCP Nurse Practitioner; Referring Provider Nurse Practitioner Family; Visit Provider Nurse Practitioner Family
DX: N89.8 Other specified noninflammatory disorders of vagina (principal)
CPT/HCPCS: 87070; 87205; 87491; 87591

== ENCOUNTER → 2024-08-03 | Outpatient (CLI) | payer MEDICAID, SELFPAY ==
[2024-08-03 17:55] LABS: Amphetamine Urine NEGATIVE (<1000 ng/mL); Barbiturate Urine VISTA NEGATIVE (< 200 ng/mL); Benzodiazepine Urine VISTA NEGATIVE (< 200 ng/mL); Cocaine Urine VISTA NEGATIVE (< 300 ng/mL); Ecstacy Urine VISTA NEGATIVE (< 500 ng/mL); Methadone Urine VISTA NEGATIVE (< 300 ng/mL); PCP Urine VISTA NEGATIVE (< 25 ng/mL); THC Urine VISTA POSITIVE (< 50 ng/mL); Vista UDS pH Range 5
== END | disposition home or self-care (01) ==
LOC: MTLAB 16:04
PROVIDERS: Referring Provider Nurse Practitioner Psychiatric/Mental Health; Visit Provider Nurse Practitioner Psychiatric/Mental Health
DX: F41.1 Generalized anxiety disorder (principal)
CPT/HCPCS: 80307

== ENCOUNTER → 2024-08-16 | Outpatient (CLI) | payer MEDICAID, SELFPAY ==
[2024-08-16 18:03] LABS: hCG Titer Quant., Serum 180 mIU/mL (1-3)
== END | disposition home or self-care (01) ==
PROVIDERS: Referring Provider Nurse Practitioner Women's Health; Visit Provider Nurse Practitioner Women's Health
DX: N91.2 Amenorrhea, unspecified (principal)
CPT/HCPCS: 36415; 84702

== ENCOUNTER → 2024-08-18 | Outpatient (CLI) | payer MEDICAID, SELFPAY ==
[2024-08-18 17:53] LABS: hCG Titer Quant., Serum 276 mIU/mL (1-3)
== END | disposition home or self-care (01) ==
LOC: LAB 16:03
PROVIDERS: Referring Provider Nurse Practitioner Women's Health; Visit Provider Nurse Practitioner Women's Health
DX: Z34.90 Encounter for supervision of normal pregnancy, unspecified, unspecified trimester (principal)
CPT/HCPCS: 36415; 84702

== ENCOUNTER 2024-08-19 08:54 | Emergency (ER) | payer MEDICAID, SELFPAY ==
[2024-08-19 08:54] VITALS: BP 118/81; PULSE 101; RESP 18; TEMP 36.8; O2SAT 99
--- NOTE | 2024-08-19 09:02 | US_ITS ---
PROCEDURE: TRANSVAGINAL W/PREG US REASON FOR EXAM: Bleeding. History of ectopic and molar . COMPARISON: None. FINDINGS: Comments: Transvaginal imaging was performed Number of Gestational Sacs: 0 Yolk Sac: Not visualized. Placenta: Not visualized. Uterine Abnormalities: Maternal uterus is unremarkable. The uterus measures 7.3 cm x 5.3 cm x 3.7 cm. The endometrium is thickened measuring 1.1 cm. Ovaries / Adnexa: Both maternal ovaries are visualized and unremarkable. Findings suggestive of a small cyst in the left ovary measuring 1.2 cm x 1.9 cm x 0.9 cm. Minimal amount of free fluid is seen in the cul-de-sac. US/Transvaginal w/Preg US IMPRESSION: No intrauterine gestational sac is seen. Endometrial thickening measuring 1.1 cm. Correlation with beta HCG recommended . Findings suggestive of a small cyst in the left ovary measuring 1.2 cm 1.9 cm x 0.9 cm. Reading Location: [facility]
--- NOTE | 2024-08-19 09:04 | EDS_ITS ---
HPI HPI - Female History of Present Illness Chief Complaint: Vag Bld, Preg Detail of Chief Complaint: Vaginal bleeding this morning Informant: patient Pain Pain: Negative for Pelvic Pain, Vulvar Pain or Vaginal Pain Bleeding Issue: Positive for Vaginal bleeding; Negative for Passing clots or Passing tissue Onset: Today Context: Sudden Onset Timing: Continuous Current Severity: Spotting Current pads/hr: 0 Maximum Severity: Spotting Maximum pads/hr: 0 Associated Symptoms Associated Symptoms: Negative for Dysuria, Frequency, Urgency or Hematuria Test: Positive Sexually: Positive for Active Control: No control P: 1 Ab: 2 (1 molar and 1 ectopic ) Narrative Narrative: Patient is a 29-year-old female. She presents because of vaginal bleeding. She is under the care of Dr. Rhonda Howell. She has had 2 quantitative hCGs this week. She has a history of ectopic , molar . She has undergone chemotherapy of the uterus for the molar . She also has history of genital herpes. She has a history of PTSD as well as bipolar 2 disorder. She also has a history of cannabis use disorder. She contacted her resolution agent. Nurse recommended she come to the ER for ultrasound. She is uncertain of blood type. Prior similar symptoms: No (Not with this ) Recent Illness/Hospitalization: No PFSH PFSH Medical History Scoliosis Left breast mass Ectopic PTSD (post-traumatic stress disorder) Cannabis use disorder Generalized anxiety disorder Bipolar 2 disorder delivery w/o mention of indication, [place], curr hospitaliz Genital herpes affecting Gestational HTN uterus chemotherapy History of molar Allergy/AdvReac Type Severity Reaction Status Date / Time No Known Allergies Allergy Verified 08/19/24 08:55 Family History Mother Thyroid disorder Surgical History H/O hand surgery History of salpingectomy delivery delivered H/O dilation and curettage Social History adopted: No number of children: 1 current occupational status: disabled pets and animals: No sexually active: Yes Smoking Status: Current every day smoker tobacco type: e-cigarettes Tobacco: How many years used: 7 Electronic Cigarette Use: without nicotine alcohol intake: former substance use type: marijuana caffeine: Yes (3) Type: carbonated beverages what type of physical activity do you participate in: walking frequency: daily seatbelt use: always do you feel safe at home: Yes ROS ROS ED Constitutional Constitutional ED: Denies chills, fever(s), subjective or sweats Cardiovascular Cardiovascular: Denies chest pain or palpitations Respiratory/Chest Respiratory/Chest: Denies cough or dyspnea Gastrointestinal Gastrointestinal: Denies abdominal pain, nausea or vomiting Genitourinary Genitourinary ED: Denies dysuria, hematuria or urinary frequency Musculoskeletal Musculoskeletal: Reports other Details: She denies pain referred to her philip garcia. ; Denies arthralgias or myalgias Psychiatric Psychiatric: Reports anxiety Hematologic/Lymphatic Hematologic/Lymphatic: Denies easy bleeding or easy bruising EXAM Physical Exam Const Vital Signs: 08/19/24 08:54 08/19/24 10:54 Temperature 98.3 F Temperature Source Temporal Pulse Rate 101 H 74 Respiratory Rate 18 Blood Pressure 118/81 H 95/59 L Blood Pressure Mean 93 71 Pulse Ox 99 Oxygen Delivery Method Room Air Positive well nourished and well developed Constitutional Narrative: Patient is tearful. Vital signs are remarkable and elevated heart rate. General Appearance ED: well developed; Negative for pallor HEENT Reports moist mucous membranes HEENT Narrative: Head is atraumatic normocephalic. Ears normal. Nares patent. Patient wears glasses. Eyes PERRL and EOMs intact bilaterally General Eye ED: Negative for pale conjunctiva or scleral icterus Neck no lymphadenopathy, supple and no JVD Resp normal respiratory effort and clear to auscultation bilaterally Cardio regular rate, regular rhythm, S1 normal heart sound and no JVD GI normal to inspection, nondistended, normoactive bowel sounds, soft to palpation, non-tender, non-distended and no masses Extremity normal to inspection Neuro oriented x3 and CN's II-XII intact bilaterally Sensorium / Orientation: alert Psych Mood & Affect: anxious Skin no rashes or lesions noted and no wounds General Skin Exam: Negative for pallor MDM MDM MDM Narrative Medical decision making narrative: Patient had a beta-hCG on August 16 and August 18. Results are 180 and 276 respectively.Patient has a negative blood. At this time will obtain ultrasound as well as quantitative hCG. RhoGAM was not ordered based on the acog suggesting foregoing routine Rh testing and Rh immunoglobulin prophylaxis if patient is less than 12 weeks and 7 days. Lab Data Labs: Laboratory Results - last 24 hr 08/19/24 09:15 HCG, Quant 305 H Radiography Diagnostic Testing: Clinical Impression(s) from Imaging Studies Obstetrics Ultrasound 08/19/24 09:02 IMPRESSION: No intrauterine gestational sac is seen. Endometrial thickening measuring 1.1 cm. Correlation with beta HCG recommended. Findings suggestive of a small cyst in the left ovary measuring 1.2 cm 1.9 cm x 0.9 cm. Reading Location: [facility] The images were reviewed. The report was read. Management Discussion w/another healthcare provider: Inside Sales Person (Spoke with Dr. Rhonda Howell. Plan is repeat quantitative hCG and 48 hours and her nurse practitioner were follow-up with patient.) Treatment and Re-Evaluation Narrative: Patient was informed of ultrasound results and blood test. Patient is no longer bleeding. Discharge Plan Triage Chief Complaint: Vag Bld, Preg ED Provider: Yunior Mathur Dx/Rx/DC Orders Clinical Impression: First trimester bleeding, Generalized anxiety disorder, PTSD (post-traumatic stress disorder) Instructions: Bleeding During Early Primary Care Provider: Care Physician,No Primary Referrals: Rhonda Howell MD [Med Staff - Active Staff] - 1 Week Care Physician,No Primary [Primary Care Provider] - Activity Restrictions/Additional Instructions: You will need to come to the emergency room/outpatient lab on Friday for repeat blood work. Dr. Rhonda Howell's nurse practitioner will contact you to follow-up on results and follow-up care Print Language: Slovenian Disposition Disposition: Home, Self Care
[2024-08-19 09:55] LABS: hCG Titer Quant., Serum 305 mIU/mL (1-3)
[2024-08-19 10:54] VITALS: BP 95/59; PULSE 74
== END 2024-08-19 11:51 | disposition home or self-care (01) ==
PROVIDERS: Emergency Provider Emergency Medicine; Visit Provider Emergency Medicine
DX: O20.9 Hemorrhage in early pregnancy, unspecified (principal); F31.81 Bipolar II disorder; F43.10 Post-traumatic stress disorder, unspecified; F17.210 Nicotine dependence, cigarettes, uncomplicated; F41.1 Generalized anxiety disorder; O99.331 Smoking (tobacco) complicating pregnancy, first trimester; F17.290 Nicotine dependence, other tobacco product, uncomplicated; O99.341 Other mental disorders complicating pregnancy, first trimester; Z3A.00 Weeks of gestation of pregnancy not specified; O99.321 Drug use complicating pregnancy, first trimester; F12.10 Cannabis abuse, uncomplicated
CPT/HCPCS: 76817; 84702; 99283; A4216

== ENCOUNTER 2024-08-20 18:32 | Emergency (ER) | payer MEDICAID, SELFPAY ==
[2024-08-20 18:33] VITALS: BP 116/75; PULSE 92; RESP 16; TEMP 36.8; O2SAT 97; BMI 19.4
--- NOTE | 2024-08-20 19:47 | ED.RN ---
pt. has come up to triage desk twice asking where her name is in the line up to go back to a room. pt. has been explained the triage and CECILIA process and that the ER is completely full. Pt. continues to talk to people on the phone using foul language in the waiting room about her wait.
[2024-08-20 20:33] VITALS: PULSE 74; RESP 16; O2SAT 97
[2024-08-20] MEDS: Acetaminophen 500 MG Tablet 1000 MG PO (21:26)
[2024-08-20 21:28] LABS: Absolute Lymphocyte Count 2.04 X10^3/uL (0.83-4.51); Absolute Neutrophil Count 1.6 X10^3/uL (2.0-7.7); Basophil# 0.02 X10^3/uL; Basophil% 0.5 % (0-1); Eosinophil# 0.16 X10^3/uL; Eosinophils% 3.9 % (0-5); Hematocrit 33.8 % (37-47); Hemoglobin 12.1 g/dL (12.0-15.0); Lymphocyte # 2.04 X10^3/ul (0.83-4.51); Lymphocyte % 49.8 % (19-41); Mean Corp Hgb Conc 35.8 g/dL (32-36); Mean Corpuscular Hgb 29.7 pg (27.0-32.0); Mean Platelet Vol. 10.2 fl (6.2-12.0); Monocyte# 0.32 X10^3/uL; Monocyte% 7.8 % (0-10); NRBC Flagged by Analyzer 0 % (0-5); Neutrophil # 1.55 X10^3/uL (2.7-7.7); Neutrophil % 37.8 % (47-70); POSITIVE MORPHOLOGY YES; Platelet Count 168 K/mm3 (150-450); RBC Distribution Width CV 11.5 % (11.6-14.6); RBC Distribution Width SD 34.8 fl (35.1-43.9); Red Blood Count 4.07 M/mm3 (4.2-5.4); White Blood Count 4.1 K/mm3 (4.4-11.0)
[2024-08-20 21:55] LABS: Anion Gap 6 (5-15); BUN 8 mg/dL (7-18); BUN/Creat Ratio 11.1 RATIO (10-20); Calcium,Total 8.7 mg/dL (8.5-10.1); Chloride 105 mmol/L (98-107); Creatinine, Serum 0.72 mg/dL (0.55-1.02); EST Glomerular Filtration Rate 103 mL/min (>60); Est Glom Filt Rate - Afr Amer 125 mL/min (>60); Estimated Creatinine Clearance 104.47 ml/min; Glucose 110 mg/dL (74-106); Sodium Level 138 mmol/L (136-145)
[2024-08-20 21:58] LABS: hCG Titer Quant., Serum 339 mIU/mL (1-3)
[2024-08-20 22:00] VITALS: BP 108/70; PULSE 90; RESP 18; O2SAT 98
[2024-08-20 22:09] LABS: Color, Urine Yellow (Yellow); Glucose, Dipstick Normal (Normal); Ketone-Dipstick Negative (Negative); Leukocyte Esterase-Dipstick 25 /ul (Negative); Nitrite-Dipstick Negative (Negative); Occult Blood-Urine 250 /ul (Negative); Protein-Dipstick 30 mg/dl (Negative); Urine Clarity Sl. Cloudy (Clear); Urine Urobilinogen 4 mg/dl (Normal)
[2024-08-20 22:09] LABS: Atypical Lymphocyte 1+ %; Differential Indicated SCAN CRITERIA MET
[2024-08-20 22:10] LABS: Anisocytosis RARE; Platelet Estimate ADEQUATE (ADEQ); Red Cell Morphology NORM C+C NORMAL (NORM C&C)
[2024-08-20 22:12] LABS: Urine Bilirubin Dipstick 1 mg/dL (Negative)
[2024-08-20 22:44] LABS: Bacteria 1+ /hpf (None Seen); Mucous, Urine 2+ /hpf (<or=2+); Red Blood Cells-Urine 10-25 SEEN /hpf (0-5); Squamous Epithelial Cells - UA 5-10 SEEN /hpf (5-10); White Blood Cells 5-10 SEEN /hpf (0-5)
--- NOTE | 2024-08-20 23:05 | EDS_ITS ---
HPI HPI - Female History of Present Illness Chief Complaint: Vag Bleeding Narrative Narrative: Chief complaint and HPI: Vaginal bleeding and right pelvic pain. 29-year-old female who is G4, P1, A2 presents for evaluation of vaginal bleeding and right pelvic pain. Patient has a past medical history of ectopic and molar . She has undergone chemotherapy of the uterus for the molar . Patient states that she has been having intermittent vaginal bleeding. She was seen in our emergency department yesterday for vaginal bleeding. She had a beta-hCG that was mildly increasing as well as OB ultrasound without a intrauterine gestational sac. She had endometrial thickening measuring 1.1 cm as well as findings suggestive of a small cyst in the left ovary. She was ultimately discharged home with plan for repeat beta- hCG tomorrow and follow-up with the [facility]. Patient states that she has continued to have light vaginal bleeding. She states she developed right pelvic pain this evening. States she called the [facility] line and they told her to present to the emergency room department. She denies any fever, chills, chest pain, shortness of breath, nausea, vomiting, dysuria, vaginal discharge. Patient states she has a previous history of chlamydia that was previously treated. Denies any concern for STI at this time. Review of systems: See HPI Medications: As listed on the chart Allergies: As listed on the chart PFSH: Per chart Vital signs: As listed on the chart. Reviewed. Physical exam: Gen: A&O x3, NAD Head: Normocephalic, atraumatic Eyes: No sclera icterus, conjunctiva clear ENT: Moist mucous membranes Neck: Trachea midline, No JVD CV: RRR, no murmurs, no peripheral edema Resp: Lungs CTA BL, no w/r/c GI: Abd soft, non-distended, mild TTP in the suprapubic region and LLQ, no r/r/g Pelvic: Normal external genitalia. No lesions, masses, vesicles, or rashes appreciated. No vaginal discharge. Cervix is non-friable. Minimal vaginal bleeding. Cervical os closed. No cervical motion tenderness appreciated. No sign of PID on examination. Musc: Full ROM, no deformity Skin: Warm, dry Neuro: Alert, oriented, grossly intact, sensation intact Psych: Cooperative, appropriate mood and affect [facility] Medical History Scoliosis Left breast mass Ectopic PTSD (post-traumatic stress disorder) Cannabis use disorder Generalized anxiety disorder Bipolar 2 disorder delivery w/o mention of indication, deliv, curr hospitaliz Genital herpes affecting Gestational HTN uterus chemotherapy History of molar Home Medications ?Medication ?Instructions ?Recorded ?Last Taken ?Type cephalexin 500 mg capsule 500 mg PO Q6H 7 days #28 cap s 08/20/24 Unknown Rx Allergy/AdvReac Type Severity Reaction Status Date / Time No Known Allergies Allergy Verified 08/20/24 18:35 Family History Mother Thyroid disorder Surgical History H/O hand surgery History of salpingectomy delivery delivered H/O dilation and curettage Social History adopted: No number of children: 1 current occupational status: disabled pets and animals: No sexually active: Yes Smoking Status: Current every day smoker tobacco type: e-cigarettes Tobacco: How many years used: 7 Electronic Cigarette Use: without nicotine alcohol intake: former substance use type: marijuana caffeine: Yes (3) Type: carbonated beverages what type of physical activity do you participate in: walking frequency: daily seatbelt use: always do you feel safe at home: Yes EXAM Physical Exam Const Vital Signs: 08/20/24 18:33 08/20/24 20:33 08/20/24 22:00 Temperature 98.2 F Temperature Source Oral Pulse Rate 92 74 90 Respiratory Rate 16 16 18 Blood Pressure 116/75 108/70 Blood Pressure Mean 88 82 Pulse Ox 97 97 98 Oxygen Delivery Method Room Air Room Air Room Air 08/20/24 23:23 Temperature 97.9 F Temperature Source Pulse Rate 77 Respiratory Rate 18 Blood Pressure 98/71 Blood Pressure Mean 80 Pulse Ox 98 Oxygen Delivery Method MDM MDM MDM Narrative Medical decision making narrative: 29-year-old female who is G4, P1, A2 presents for evaluation of vaginal bleeding and right pelvic pain. Patient was seen in our emergency department yesterday for similar complaint. See HPI. See physical exam. Differential diagnosis includes but is not limited to bleeding in the first trimester, , ectopic , anemia, UTI, pelvic pain in first trimester. On chart review, patient's beta-hCG's have slowly been increasing but not doubling. She is A negative. RhoGAM was not ordered based on the a cog suggesting foregoing routine Rh testing and Rh immunoglobulin prophylaxis if patient is less than 12 weeks and 7 days. Laboratory workup ordered including UA. Patient not having any vaginal discharge and has low suspicion for STI however given her previous history of STI will obtain gonorrhea and Chlamydia testing. Patient just had a ultrasound performed yesterday which was negative for any intrauterine or gestational sac. Patient's beta-hCGs are not high enough to see any pathology such as IUP or ectopic on ultrasound. Patient states she was sent in by her [facility] for an ultrasound today. I reached out to Dr. Mclaughlin who is on-call for Dr. Santhosh Gallardo patient's [facility]. He agrees that no ultrasound is needed at this time as patient had one yesterday and will not provide us with any further information. CBC with mild leukopenia of 4.1. No leukocytosis. No anemia. No thrombocytopenia. BMP relatively unremarkable without NATHAN. Beta-hCG is 339. This is mildly increased from 304 yesterday. UA positive for blood, leuk esterase, WBC, bacteria. This is not the cleanest sample. Given patient is with bacteriuria she will be treated. Urine culture sent. First dose of Keflex ordered here. Patient will be discharged home on Keflex. Patient is negative for gonorrhea or chlamydia. On reev aluation, patient's pain is improving. Still having minimal bleeding. Vital stable. Dr. Mclaughlin was recontacted and patient was discussed. He agrees with discharge home. Patient is to have her beta hCG performed tomorrow that was already scheduled. Follow-up with [facility]. Return precautions explained. She confirmed understand the plan. Patient stable to discharge home. Impression: 1. Vaginal bleeding in first trimester 2. Pelvic pain in first trimester Lab Data Labs: Laboratory Results - last 24 hr 08/20/24 08/20/24 20:33 21:20 WBC 4.1 L RBC 4.07 L Hgb 12.1 Hct 33.8 L MCV 83.0 MCH 29.7 MCHC 35.8 RDW Std Deviation 34.8 L RDW Coeff of Elsy 11.5 L Plt Count 168 MPV 10.2 Immature Gran % (Auto) 0.200 Neut % (Auto) 37.8 L Lymph % (Auto) 49.8 H [place] % (Auto) 7.8 Eos % (Auto) 3.9 Baso % (Auto) 0.5 Absolute Neuts (auto) 1.6 L Absolute Lymphs (auto) 2.04 Nucleated RBC % 0 Atypical Lymphocytes 1+ Platelet Estimate ADEQUATE RBC Morphology NORM C+C Anisocytosis RARE Sodium 138 Potassium 3.0 L Chloride 105 Carbon Dioxide 27.0 Anion Gap 6 BUN 8 Creatinine 0.72 Estim Creat Clear Calc 104.47 Est GFR (MDRD) Af Amer 125 Est GFR (MDRD) Non-Af 103 BUN/Creatinine Ratio 11.1 Glucose 110 H Calcium 8.7 HCG, Quant 339 H Urine Color Yellow Urine Clarity Sl. Cloudy Urine pH 8.0 Ur Specific [place] 1.010 Urine Protein 30 H Urine Glucose (UA) Normal Urine Ketones Negative Urine Occult Blood 250 H Urine Nitrite Negative Urine Bilirubin 1 H Urine Urobilinogen 4 H Ur Leukocyte Esterase 25 H Urine RBC 10-25 SEEN Urine WBC 5-10 SEEN Ur Squamous Epith Cells 5-10 SEEN Urine Bacteria 1+ Urine Mucus 2+ Discharge Plan Triage Chief Complaint: Vag Bleeding ED Provider: Afshin Terry Dx/Rx/DC Orders Clinical Impression: First-trimester bleeding Instructions: Bleeding During Early Prescriptions: New cephalexin 500 mg capsule 500 mg PO Q6H 7 Days Qty: 28 0RF Primary Care Provider: Care Physician,No Primary Referrals: Rhonda Howell MD [Med Staff - Active Staff] - 3-5 Days Care Physician,No Primary [Primary Care Provider] - Activity Restrictions/Additional Instructions: Return back to the ED if symptoms change or worsen. You need to have your scheduled beta-hCG performed tomorrow. Call the [facility] office for follow-up. Nurse practitioner should reach out to you once lab results. If they do not make sure you call the office. 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 You received the first dose here in the emergency department. Okay to start tomorrow morning. Print Language: Yoruba Disposition Disposition: Home, Self Care Discharge Date/Time: 08/20/24 23:24
[2024-08-20] MEDS: Cephalexin 250 MG Capsule 500 MG PO (23:21)
[2024-08-20 23:23] VITALS: BP 98/71; PULSE 77; RESP 18; TEMP 36.6; O2SAT 98
== END 2024-08-20 23:24 | disposition home or self-care (01) ==
PROVIDERS: Emergency Provider Surgery; Visit Provider Surgery
DX: O20.9 Hemorrhage in early pregnancy, unspecified (principal); R10.2 Pelvic and perineal pain; O99.111 Other diseases of the blood and blood-forming organs and certain disorders involving the immune mechanism complicating pregnancy, first trimester; O99.331 Smoking (tobacco) complicating pregnancy, first trimester; D72.819 Decreased white blood cell count, unspecified; F17.290 Nicotine dependence, other tobacco product, uncomplicated; Z3A.00 Weeks of gestation of pregnancy not specified
CPT/HCPCS: 80048; 81001; 84702; 85025; 87086; 87088; 87491; 87591; 99283; A4216

== ENCOUNTER 2024-08-23 15:19 | Emergency (ER) | payer MEDICAID, SELFPAY ==
[2024-08-23 15:21] VITALS: BP 102/71; PULSE 81; RESP 16; TEMP 36.7; O2SAT 96; BMI 20.1
--- NOTE | 2024-08-23 15:51 | US_ITS ---
PROCEDURE: Transvaginal pelvic ultrasound. REASON FOR EXAM: Vaginal bleeding. Decreasing HCG level. COMPARISON: 07/2024 FINDINGS The uterus is anteverted measuring 8.0 x 3.8 x 3.8 cm. No discrete uterine myometrial or cervical mass is demonstrated. The endometrium measures 1.2 cm in thickness. A 3 mm anechoic tiny cystic structure is demonstrated in the fundal portion of the endometrium. No pole is demonstrated. The right ovary is 2.0 x 2.1 x 2.1 cm. A few tiny right ovarian follicles are present. There appears to be blood flow in the right ovary on Doppler evaluation. The left ovary is 3.0 x 1.9 x 1.0 cm. A few tiny left ovarian follicles are present, measuring up to 1.2 cm. There appears to be blood flow in the left ovary on Doppler evaluation. No dominant adnexal mass. Trace amount of free pelvic fluid in the cul-de-sac. US/Transvaginal w/Preg US IMPRESSION: 3 mm tiny cystic structure in the fundal portion of the endometrium, without ev idence of pole. Given the patient's history of vaginal bleeding and decreasing HCG level, the findings could be due to a no nviable . Other differential possibilities would include an early intrauterine gestation or nonvisualized ec topic . Recommend continued biochemical and sonographic follow-up. No concerning adnexal mass. Trace amount of free pelvic fluid. No evidence of ovarian torsion. Reading Location: [facility]
[2024-08-23 16:38] LABS: Color, Urine Yellow (Yellow); Glucose, Dipstick Normal (Normal); Ketone-Dipstick Negative (Negative); Leukocyte Esterase-Dipstick 25 /ul (Negative); Nitrite-Dipstick Negative (Negative); Occult Blood-Urine 250 /ul (Negative); Protein-Dipstick 30 mg/dl (Negative); Specific Gravity, Urine 1.015 (1.002-1.030); Urine Bilirubin Dipstick Negative (Negative); Urine Clarity Sl. Cloudy (Clear); Urine Urobilinogen Normal (Normal); Urine pH 6.5 (5.0 - 8.0)
--- NOTE | 2024-08-23 16:44 | EDS_ITS ---
HPI HPI - Female History of Present Illness Chief Complaint: Vag Bld, Preg PFSH PFSH Medical History Scoliosis Left breast mass Ectopic PTSD (post-traumatic stress disorder) Cannabis use disorder Generalized anxiety disorder Bipolar 2 disorder delivery w/o mention of indication, deliv, curr hospitaliz Genital herpes affecting Gestational HTN uterus chemotherapy History of molar Home Medications ?Medication ?Instructions ?Recorded ?Last Taken ?Type cephalexin 500 mg capsule 500 mg PO Q6H 7 days #28 cap s 08/20/24 Unknown Rx Allergy/AdvReac Type Severity Reaction Status Date / Time No Known Allergies Allergy Verified 08/20/24 18:35 Family History Mother Thyroid disorder Surgical History H/O hand surgery History of salpingectomy delivery delivered H/O dilation and curettage Social History adopted: No number of children: 1 current occupational status: disabled pets and animals: No sexually active: Yes Smoking Status: Current every day smoker tobacco type: e-cigarettes Tobacco: How many years used: 7 Electronic Cigarette Use: without nicotine alcohol intake: former substance use type: marijuana caffeine: Yes (3) Type: carbonated beverages what type of physical activity do you participate in: walking frequency: daily seatbelt use: always do you feel safe at home: Yes EXAM Physical Exam Const Vital Signs: 08/23/24 15:21 08/23/24 17:20 08/23/24 19:00 Temperature 98.1 F Temperature Source Temporal Pulse Rate 81 77 76 Respiratory Rate 16 19 H 16 Blood Pressure 102/71 98/69 Blood Pressure Mean 81 78 Pulse Ox 96 98 Oxygen Delivery Method Room Air Room Air MDM MDM MDM Narrative Medical decision making narrative: HISTORY OF PRESENT ILLNESS: 29 female G2, P1, history of ectopic here with concern for miscarriage. Notes she saw her OB today noted hCG levels are not progressing as expected. Notes she has a history of ectopic in the OB was concerned that she may have an early ectopic and wanted her evaluated in the emergency department. Per the patient she has no pain or tenderness or even bleeding. She notes she was told by her OB to come in to get ultrasound and potentially a shot of methotrexate. REVIEW OF SYSTEMS: Pertinent positives: No reported symptoms Pertinent negatives: Abdominal pain, vomiting PHYSICAL EXAM: Nursing triage notes reviewed, Vital signs reviewed Constitutional: please see mdm HENT: MMM Eyes: Pupils equal round and reactive to light, Extraocular muscles intact Neck: No stridor, no JVD, full neck ROM Lungs: Clear to auscultation, No wheezing or rales. No increased work of breathing, no conversational dyspnea, no accessory muscle use, no nasal flaring. No respiratory distress noted Heart: Regular rate and rhythm, No murmurs, No rubs and No gallops, 2+ distal pulses (radial, femoral, posterior tibial) in all extremities Abdomen: Soft, there is no tenderness, rigidity, rebound or guarding, no obvious peritoneal signs, no palpable pulsatile abdominal masses, no auscultated abdominal bruit : No CVAT Extremities: No edema Neuro: No new focal neurological deficits, cranial nerves II through XII intact, 5/5 strength in all present extremities. Intact sensation to light touch in all present extremities, 2+ reflexes bilateral patella tendons. Skin: No rash or lesions noted MEDICAL DECISION MAKING: Chief Complaint: Vaginal bleeding concern for miscarriage External records reviewed: Reviewed prior imaging studies: Reviewed potential ultrasound from 08/19/2024 which showed no intrauterine gestational sac, noted endometrial thickening, noted small cyst in left ovary that is 1.2 cm x 1.9 cm x 0.9 cm Factors affecting care: Bipolar disorder, cannabis use, PTSD Social determinants of health: History of mental health disorder History obtained from others: Patient's SECURITY INVESTIGATOR (Dr. Velez) -discussed with the patient's OB. OB was concerning the patient's hCG was not increasing appropriately. She requested an ultrasound, basic labs and potentially Consults: none [facility] Narrative: Patient was initially hemodynamically stable, afebrile and nontoxic-appearing. Exam without abdominal tenderness I considered the following differential diagnosis: Miscarriage, early ALL IMAGES (IF OBTAINED) HAVE BEEN PERSONALLY REVIEWED AND INTERPRETED BY MYSELF. hCG from earlier today was 426 Urinalysis shows no evidence of urinary inflammation suggestive of UTI CBC with no leukocytosis, mild anemia, no thrombocytopenia BMP without evidence of significant electrolyte abnormalities, no anion gap, no acute kidney injury. CMP without evidence of acute kidney injury, significant electrolyte abnormality, anion gap to suggest end organ hypo-perfusion, no evidence of metabolic acidosis with a normal bicarbonate, no evidence of hepatobiliary ob structive pathology. Of note at 6:30 PM the patient became very agitated and irate stating she wants her shot . She states she has been here since 2:00 and her child is becoming agitated she further states her OB told her she would come to the ED and get her shot and then leave. He is wondering why it is taking so long for her ultrasound to be back. She yelled at nursing. She will that myself. She was rude and dismissive. As I was explained to her the process of getting ultrasound and consulting SECURITY INVESTIGATOR she started using her phone to have a separate conversation in front of me. I then let the patient know that she should stay to get the ultrasound results and SECURITY INVESTIGATOR's recommendations or if she felt so inclined she could leave AGAINST MEDICAL ADVICE. The patient not respond. I wa lked out of the room calmly. At 6:43 PM patient ultrasound returned and showed IMPRESSION: 3 mm tiny cystic structure in the fundal portion of the endometrium, without evidence of pole. Given the patient's history of vaginal bleeding and decreasing HCG level, the findings could be due to a nonviable . Other differential possibilities would include an early intrauterine gestation or nonvisualized ectopic . Recommend continued biochemical and sonographic follow-up. No concerning adnexal mass. Trace amount of free pelvic fluid. No evidence of ovarian torsion. Placed a call for Dr. Velez at ~7:[address] Velez at 7:22pm notes she thinks this did not visualize ectopic recommended giving methotrexate. Risk and benefits of methotrexate were discussed with the patient. Including termination of viable . Side effects of methotrexate. patient was alert and orient x 3 not capacity to make her own medical decisions and chose to continue with treatment with methotrexate. Strict return precautions were discussed. OB follow-up recommended. The patient and/or family, caregivers express understanding. The patient and/or family, caregivers agrees with the plan. Shared decision making: I will have a discussion with the patient and or visitors regarding risk/benefits of further testing or admission. They will be made aware of of the risk/benefits inherent in this decision they will be given the opportunity to voice understanding. Total critical care time today provided was at least 0 minutes. This excludes separately billable procedures. Critical care time (if documented) is secondary to the patient having high probability of clinically significant/life threatening deterioration in the patient's condition which required my urgent intervention. Impression: 1. Non-visualized Ectopic Dispo: Discharge home This note was generated with Wildcard dictation software. It may contain incorrect words, spelling, and punctuation that were not noted in review of the chart prior to signing. Lab Data Labs: Laboratory Results - last 24 hr 08/23/24 08/23/24 16:30 16:50 WBC 5.6 RBC 3.95 L Hgb 11.6 L Hct 34.0 L MCV 86.1 MCH 29.4 MCHC 34.1 RDW Std Deviation 36.2 RDW Coeff of Elsy 11.6 Plt Count 237 MPV 10.3 Sodium 140 Potassium 3.7 Chloride 108 H Carbon Dioxide 26.0 Anion Gap 6 BUN 10 Creatinine 0.82 Estim Creat Clear Calc 94.82 Est GFR (MDRD) Af Amer 108 Est GFR (MDRD) Non-Af 89 BUN/Creatinine Ratio 12.2 Glucose 89 Calcium 8.8 Total Bilirubin 0.20 AST 13 L ALT 38 Alkaline Phosphatase 54 Total Protein 7.0 Albumin 3.6 Globulin 3.4 Albumin/Globulin Ratio 1.1 Urine Color Yellow Urine Clarity Sl. Cloudy Urine pH 6.5 Ur Specific [place] 1.015 Urine Protein 30 H Urine Glucose (UA) Normal Urine Ketones Negative Urine Occult Blood 250 H Urine Nitrite Negative Urine Bilirubin Negative Urine Urobilinogen Normal Ur Leukocyte Esterase 25 H Urine RBC 10-25 SEEN Urine WBC 5-10 SEEN Ur Squamous Epith Cells 0-5 SEEN Urine Bacteria 1+ Urine Mucus 3+ Blood Type A NEGATIVE Radiography Diagnostic Testing: Clinical Impression(s) from Imaging Studies Obstetrics Ultrasound 08/23/24 15:51 IMPRESSION: 3 mm tiny cystic structure in the fundal portion of the endometrium, without evidence of pole. Given the patient's history of vaginal bleeding and decreasing HCG level, the findings could be due to a nonviable . Other differential possibilities would include an early intrauterine gestation or nonvisualized ectopic . Recommend continued biochemical and sonographic follow-up. No concerning adnexal mass. Trace amount of free pelvic fluid. No evidence of ovarian torsion. Reading Location: [facility] Discharge Plan Triage Chief Complaint: Vag Bld, Preg ED Provider: Junior Mosley Dx/Rx/DC Orders Clinical Impression: Ectopic Instructions: Ectopic , Methotrexate Ectopic Prescriptions: No Action cephalexin 500 mg capsule 500 mg PO Q6H 7 Days Qty: 28 0RF Patient Comments: not picked up from pharmacy Primary Care Provider: Care Physician,No Primary Referrals: Emily Velez DO [Med Staff - Active Staff] - Activity Restrictions/Additional Instructions: Thank you for trusting us with your care today! Please take Tylenol (2 pills, 650 mg), ibuprofen (2 pills, 400 mg) every 6 hours as needed for pain and fever control. Please return to the emergency department if your symptoms change or worsen. Specifically develop severe abdominal pain, heavy vaginal bleeding, if you lose consciousness. Please follow with your SECURITY INVESTIGATOR for further outpatient evaluation and management. Print Language: French Disposition Disposition: Home, Self Care Discharge Date/Time: 08/23/24 20:07
[2024-08-23 17:02] LABS: Bacteria 1+ /hpf (None Seen); Mucous, Urine 3+ /hpf (<or=2+); Red Blood Cells-Urine 10-25 SEEN /hpf (0-5); Squamous Epithelial Cells - UA 0-5 SEEN /hpf (5-10); White Blood Cells 5-10 SEEN /hpf (0-5)
[2024-08-23 17:08] LABS: Hemoglobin 11.6 g/dL (12.0-15.0); Mean Corp Hgb Conc 34.1 g/dL (32-36); Mean Corpuscular Hgb 29.4 pg (27.0-32.0); Mean Corpuscular Volume 86.1 fL (81-99); Mean Platelet Vol. 10.3 fl (6.2-12.0); Platelet Count 237 K/mm3 (150-450); RBC Distribution Width CV 11.6 % (11.6-14.6); RBC Distribution Width SD 36.2 fl (35.1-43.9); Red Blood Count 3.95 M/mm3 (4.2-5.4); White Blood Count 5.6 K/mm3 (4.4-11.0)
[2024-08-23 17:20] VITALS: PULSE 77; RESP 19; O2SAT 98
[2024-08-23 17:28] LABS: ALB/GLOB Ratio 1.1 RATIO (0.9-2.4); AST(SGOT) 13 U/L (15-37); Alanine Aminotransfer ALT/SGPT 38 U/L (13-56); Albumin, Serum 3.6 g/dL (3.2-5.0); Alkaline Phosphatase 54 U/L (45-117); Anion Gap 6 (5-15); BUN 10 mg/dL (7-18); BUN/Creat Ratio 12.2 RATIO (10-20); Calcium,Total 8.8 mg/dL (8.5-10.1); Chloride 108 mmol/L (98-107); Creatinine, Serum 0.82 mg/dL (0.55-1.02); EST Glomerular Filtration Rate 89 mL/min (>60); Est Glom Filt Rate - Afr Amer 108 mL/min (>60); Estimated Creatinine Clearance 94.82 ml/min; Globulin 3.4 g/dL (2.2-4.2); Glucose 89 mg/dL (74-106); Potassium 3.7 mmol/L (3.5-5.1); Sodium Level 140 mmol/L (136-145)
--- NOTE | 2024-08-23 18:31 | ED.RN ---
patient requesting to leave. states get me the doctor or get this IV out of my arm the results are taking to [facility] paperwork offered, patient refused and stated get me the [facility] doctor. Dr. Mosley informed and at bedside.
--- NOTE | 2024-08-23 18:43 | ED.RN ---
WAS ASKED BY STAFF TO GO IN AND SEE IT PT WANTED HER IV OUT. PT WAS ACTING THOUGH SHE WAS ON THE PHONE WITH [facility] AND WAS YELLING AT THE PERSON ON THE PHONE BECAUSE SHE HAS BEEN IN THE ER SINCE 1400 AND HAS HER SON AND HE NEEDS TO EAT. STATED THAT SHE IS WAITING FOR HER SHOT AND SHOULD NOT HAVE TO WAIT FOR TEST RESULTS WHEN HER DR ALREADY CONFIRMED SHE HAD A ETOPIC . SHE CONTINUED TO YELL AT THE PERSON ON THE PHONE WHILE THIS NURSE PLAYED WITH HER SON WHO WAS SITTING ON THE BED WITH HER. ONCE PT WAS OFF THE PHONE SHE THEN STARTED YELLING AT THIS NURSE ABOUT WHY SHE HASN'T HAD HER SHOT YET AND THAT SHE SHOULD NOT HAVE TO WAIT THIS LONG. THIS NURSE THEN ASKED IF SHE WANTED HER IV OUT OR IF SHE WAS GOING TO WAIT FOR HER TEST RESULTS. SHE THEN YELLED SHE NEEDED HER SHOT. THIS NURSE STATED I WAS NOT SURE IF SHE WAS GETTING A SHOT AND THAT WAS UP TO THE ER DR ONCE HE HAD HER TEST RESULTS. SHE CONTINUED TO YELL SO THIS NURSE RAISED HER VOICE WELL ATTEMPTING TO FIND OUT IF SHE WAS STAYING OR LEAVING. PT THEN STATED THAT THIS NURSE SHOULD NOT RAISE MY VOICE AT HER. EXPLAINED I WAS TRYING TO TALK OVER HER YELLING TO SEE WHAT HER PLAN WAS SHE THEN STATED THAT I WAS A NURSE AND I SHOULD TALK THE YELLING AND IT WAS MY JOB. EXPLAINED TO THE PT THAT WAS NOT CORRECT, A NURSE WE TAKE CARE OF PTS BUT WE DO NOT HAVE TO TOLERATED DISRESPECTFUL ABUSIVE BEHAVIORS. PT STATED THAT SHE'S THE PT SO SHE CAN DO WHATEVER. THIS NURSE THEN EXPLAINED TO PT THAT IF SHE WANTED TO CONTINUE THIS BEHAVIOR WITH THE STAFF WE WOULD REMOVE HER IV AND SHE COULD LEAVE, IF SHE COULD ACT A ADULT AND BE RESPECTFUL THEN SHE WAS WELCOME TO WAIT FOR HER TEST RESULTS. PT CONTINUED TO YELL AND STATED SHE NEEDED A SHOT. AGAIN EXPLAINED THAT WAS A DECISION TO BE MADE BY OUT DR AND AGAIN THE YELLING AND DISRESPECT WAS NOT APPROPRIATE FOR OUR STAFF OR THE OTHER PTS THAT HAVE TO HEAR IT. SHE WAS INFORMED THAT IF IT CONTINUED THE POLICE COULD COME AND VISIT HER AND DISCUSS THE BEHAVIOR.
[2024-08-23 19:00] VITALS: BP 98/69; PULSE 76; RESP 16
[2024-08-23] MEDS: METHOTREXATE 20.2 MG IM ×2 (20:02)
--- NOTE | 2024-08-23 20:07 | ED.RN ---
pt refused to stay for 15 min shot time after IM injections
== END 2024-08-23 20:07 | disposition home or self-care (01) ==
PROVIDERS: Emergency Medicine; Emergency Provider Emergency Medicine; Visit Provider Emergency Medicine
DX: O00.90 Unspecified ectopic pregnancy without intrauterine pregnancy (principal); F31.9 Bipolar disorder, unspecified; F17.290 Nicotine dependence, other tobacco product, uncomplicated; F43.10 Post-traumatic stress disorder, unspecified; F12.90 Cannabis use, unspecified, uncomplicated
CPT/HCPCS: 76817; 80053; 81001; 85027; 86900; 86901; 99284; A4216; J9260

== ENCOUNTER → 2024-08-23 | Outpatient (CLI) | payer MEDICAID, SELFPAY ==
[2024-08-23 14:09] LABS: hCG Titer Quant., Serum 426 mIU/mL (1-3)
== END | disposition home or self-care (01) ==
LOC: PAVLAB 13:11
PROVIDERS: Referring Provider Advanced Practice Midwife; Visit Provider Advanced Practice Midwife
DX: Z34.90 Encounter for supervision of normal pregnancy, unspecified, unspecified trimester (principal)
CPT/HCPCS: 36415; 84702

== ENCOUNTER → 2024-09-27 | Outpatient (CLI) | payer MEDICAID, SELFPAY ==
[2024-09-27 14:58] LABS: hCG Titer Quant., Serum < 1 mIU/mL (<9 non-preg)
== END | disposition home or self-care (01) ==
PROVIDERS: Referring Provider Obstetrics & Gynecology; Visit Provider Obstetrics & Gynecology
DX: O03.9 Complete or unspecified spontaneous abortion without complication (principal); Z87.59 Personal history of other complications of pregnancy, childbirth and the puerperium
CPT/HCPCS: 36415; 84702

== ENCOUNTER → 2025-06-02 | Outpatient (CLI) | payer MEDICAID, SELFPAY ==
[2025-06-04 06:08] LABS: Chlamydia By Nucleic Acid AMP Negative (Negative); Gonococcus By Nucleic Acid AMP Negative (Negative)
== END | disposition home or self-care (01) ==
LOC: LABSPEC 11:50
PROVIDERS: Referring Provider Nurse Practitioner Family; Visit Provider Nurse Practitioner Family
DX: Z11.3 Encounter for screening for infections with a predominantly sexual mode of transmission (principal); N89.8 Other specified noninflammatory disorders of vagina
CPT/HCPCS: 87070; 87205; 87491; 87591